=== PATIENT | female | born 2000 | race Caucasian/White ===

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

== ENCOUNTER 2020-01-09 14:14 | Outpatient (REF) | payer MEDICAID, SELFPAY ==
[2020-01-15 12:11] LABS: Chlamydia Result Negative (Negative); GC Result Negative (Negative)
== END 2020-01-09 14:34 ==
LOC: LBN 14:14
PROVIDERS: PCP Nurse Practitioner Family; Visit Provider Nurse Practitioner Women's Health
DX: Z11.3 Encounter for screening for infections with a predominantly sexual mode of transmission (principal)
CPT/HCPCS: 87491; 87591

== ENCOUNTER 2020-02-01 02:13 | Outpatient (CLI) | payer MEDICAID, SELFPAY ==
[2020-02-01 12:14] LABS: Abs Immature Grans 0.01 10^3/uL (0.0-0.06); Absolute Basophil Count 0.03 10^3/uL (0.0-0.2); Absolute Eosinophil Count 0.12 10^3/uL (0.0-0.7); Absolute Monocyte Count 0.46 10^3/uL (0.1-0.8); Absolute Neutrophil Count 3.06 10^3/uL (1.2-6.7); Basophils % 0.5; Eosinophils % 2.1; HGB 12.2 g/dL (11.2-15.7); Immature Grans % 0.2; Lymphocytes % 36.3; MCH 29.3 pg (27.0-33.0); MCHC 33.9 % (32.0-36.0); MCV 86.5 fL (80-95); MPV 11.3 fL (8.0-11.0); Neutrophils % 52.9; Nucleated RBC 0 %; Platelet Count 197 10^3/uL (130-400); RBC 4.16 10^6/uL (3.93-5.22); RDW 12.3 % (11.7-14.6); RDW-SD 38.8 fL; WBC 5.78 10^3/uL (4.4-10.8)
[2020-02-01 13:40] LABS: ALT 29 U/L (14-59); AST 15 U/L (15-37); Albumin 3.9 g/dL (3.4-5.0); Alkaline Phosphatase 67 U/L (46-116); Anion Gap 7.2 mmol/L (3-11); BUN 12 mg/dL (7-18); Bilirubin, Total 0.6 mg/dL (0.2-1.0); CO2 26.8 mmol/L (21.0-32.0); CREATININE 0.93 mg/dL (0.55-1.02); Calcium 9.2 mg/dL (8.5-10.1); Chloride 106 mmol/L (98-107); Glucose 94 mg/dL (74-106); Potassium 4.4 mmol/L (3.5-5.1); Sodium 140 mmol/L (136-145); TSH (W/Ref FT4) 1.26 uIU/mL (0.52-4.13); Total Protein 6.8 g/dL (6.4-8.2)
== END 2020-02-01 02:33 ==
PROVIDERS: PCP Nurse Practitioner Family; Visit Provider Family Medicine
DX: M54.2 Cervicalgia (principal)
CPT/HCPCS: 36415; 80053; 84443; 85025

== ENCOUNTER 2020-02-20 16:37 | Outpatient (CLI) | payer MEDICAID, SELFPAY ==
--- NOTE | 2020-02-20 | DI.RAD_ITS ---
EXAM: XR ABD FLAT UPRIGHT PA CHEST CLINICAL HISTORY: CONSTIPATION, K59.00, EVALUATION OF BOWEL OBSTRUCTION TECHNIQUE: COMPARISON: CR XR ABDOMEN FLAT PLATE from 12/07/2019 FINDINGS: PA chest was obtained. Cardiac size is within normal limits. Lungs are clear and well expanded. Three views of the abdomen were obtained. No free intraperitoneal air. Normal bowel gas pattern not ed. No organomegaly. IMPRESSION: Negative examination of the chest and abdomen. RADIATION DOSE DELIVERED: Total DLP
== END 2020-02-20 16:57 ==
PROVIDERS: PCP Nurse Practitioner Family; Visit Provider Nurse Practitioner Family
DX: K59.00 Constipation, unspecified (principal)
CPT/HCPCS: 74022

== ENCOUNTER 2020-07-23 15:35 | Outpatient (REF) | payer MEDICAID, SELFPAY | END 2020-07-23 15:36 | disposition home or self-care (01) | LOC: NCHCN 15:35 | PROVIDERS: PCP Nurse Practitioner Family; Visit Provider Nurse Practitioner Family | DX: R30.0 Dysuria (principal) | CPT/HCPCS: 87077; 87086; 87186 ==

== ENCOUNTER 2020-08-28 20:53 | Emergency (ER) | payer MEDICAID, SELFPAY ==
[2020-08-28 21:01] VITALS: BP 138/73; PULSE 92; RESP 16; TEMP 36.9; O2SAT 97
--- NOTE | 2020-08-28 21:36 | ED.GENADUL_ITS ---
Discharge Plan Disposition Patient Disposition: HOME Condition: Good Discharge Details Clinical Impression: Acute neck pain, Back pain, thoracic Primary Care Provider: Marixa Rosales ED Provider: Xiomara Rodriguez Home Meds and New Rx's Prescriptions: Continued Nexplanon 68 mg implant 1 implant SBD ONCE RF: 0 acetaminophen [Tylenol Extra Strength] 500 mg Tablet 500 mg PO PRN PRNRF: 0 bupropion HCl 150 mg tablet extended release 24 hr 150 mg PO DAILY RF: 0 Discharge Instructions Instructions: Back Pain (ED), Neck Pain (ED) Additional Instructions: Imaging is reassuring here today. There is findings suggestive of muscle spasm in your neck. Please encourage gentle stretching. Heat or ice to affected area. Avoid heavy lifting. You may continue with Tylenol and/or ibuprofen as needed for discomfort. May also try topical options such as lidocaine patches. If you develop any new or worsening symptoms please seek care urgently once again. Otherwise, please follow-up with your primary care in the next 1 to 2 weeks for reevaluation. Referrals: Marixa Rosales [Primary Care Provider] - Discharge Data Discharge Date/Time-TO BE ENTERED AT DEPARTURE: 08/29/20 00:15 Medical Decision Making Patient is a pleasant 20 year old female presenting today with c/c of cervical and thoracic spine pain. States that prior to arrival she was wrestling with a friend. States that she was kneeling on the bed when she excellently fell over backwards falling off of the bed and landing directly on her head with her neck in a forward flexed position on the floor. Denies any loss of consciousness. No nausea or vomiting. No focal the. No visual change. However, patient has continued to have neck and upper thoracic pain. States that this is worse with movement. Has not had any analgesics. Denies being . Denies other injury the time of the incident. On exam, patient appears nontoxic. She appears anxious and uncomfortable. Neuro exam is normal. She does have pain in the lower cervical and upper thoracic spine with rotation of the neck to the left. No midline tenderness of the cervical spine. No step-off deformity. Patient also has fairly diffuse upper thoracic pain but again, no focal discomfort, no step-off. No objective evidence of trauma. Patient has good extension of the spine, rotation but does have limited forward flexion. Patient denies discussed continued management. Based on fall, level of discomfort, plan to move forward with CT imaging to evaluate for potential fracture. Will give Tylenol, ibuprofen, Lidoderm patch to help with discomfort. Reevaluated patient after she returned from CT, she reports that her pain is much improved. Pending results from radiologist. FINDINGS: Bones/joints: No acute fracture. There are no subluxations. There is loss of the cervical lordosis with minimal smooth kyphosis centered at the lower cervical spine which may be related to muscle spasm or positioning. Discs/Spinal canal/Neural foramina: No significant disc protrusion. No severe spinal canal stenosis. No significant neural foraminal narrowing. Lungs: Lung apices are normal. Soft tissues: Unremarkable. IMPRESSION: 1. No acute fractures or subluxations. 2. Loss of the cervical lordosis may be related to muscle spasm or positioning. FINDINGS: Vertebrae: No acute fracture. Normal alignment. There is mild anterior wedging and loss of vertebral body height of multiple mid and lower thoracic vertebra which appears chronic. Discs/Spinal canal/Neural foramina: There is multilevel mild disc space narrowing and endplate degenerative spurring of the lower thoracic spine with scattered tiny degenerative Schmorl's nodes consistent with mild degenerative disc disease. No significant disc protrusion. No severe spinal canal stenosis. No significant neural foraminal narrowing. Soft tissues: There is a retroesophageal right subclavian artery, a normal variant. There is mild wedge-shaped soft tissue within the anterior mediastinum at and superior to the level of the aortic arch consistent with mild residual thymic tissue. There are punctate renal stones within the upper poles of the kidneys, 1 on the right and 3 on the left. IMPRESSION: 1. No acute fractures or subluxations. 2. Multiple chronic appearing mild compression deformities of mid and lower thoracic vertebra. 3. Mild multilevel degenerative changes. 4. Tiny bilateral renal stones. Discussed these findings with the patient. She states hx of previous trauma accounting for chronic compression deformities. She is feeling significantly improved. She and I discussed home remedies and OTC medications that may help with symptomatic maangement. Encouraged massage, ROM, stretching, heat, NSAIDS, topical options for pain management. She will f/u with PCP in the next 1-2 weeks for reevaluation. Return precautions discussed. All of her questions and concerns were addressed, she is in agreement with this plan. HPI General Mode of arrival: ambulatory . Date/Time Provider Initiated Documentation: 06/16/21 21:13 . Limitations to Documentation: no limitations . Information obtained by: patient and RN notes reviewed . History of Present Illness 20 year old F presents to the emergency department with the chief complaint of neck and back pain, described as severe, with intensity rated at 8. Quality is described as aching, and is localized to the neck and back. Patient reports no radiation. Patient started experiencing this minute(s) and it has been constant. Immobilization improves symptom(s), Movement worsens symptoms . Patient notes no other symptoms.. Patient did receive the following treatments prior to arrival, none Related Data Home Medications Medication Instructions Recorded Confirmed etonogestrel 68 mg subdermal 1 implant SBD ONCE 10/14/18 08/28/20 implant acetaminophen [Tylenol Extra 500 mg PO PRN PRN 11/16/18 08/28/20 Strength] bupropion HCl 150 mg PO DAILY 08/28/20 08/28/20 Allergies Allergy/AdvReac Type Severity Reaction Status Date / Time peanut Allergy Severe Anaphylaxis Unverified 08/28/20 21:08 General Stated Complaint: Nk/Back Pain STANTON: 3 Review of Systems Constitutional Constitutional: Reports as per HPI, Denies chills, Denies fatigue, Denies fe yevgeniy(s), Denies frequent falls and Denies headache(s) Eyes Eyes: Denies change in vision ENT Ears, Nose, Mouth, and Throat: Denies headache(s) Cardiovascular Cardiovascular: Denies chest pain, Denies dyspnea and Denies dyspnea on exertion Respiratory Respiratory: Denies cough, Denies dyspnea and Denies dyspnea on exertion Gastrointestinal Gastrointestinal: Denies abdominal pain, Denies change in bowel habits and Denies fecal incontinence Genitourinary Genitourinary: Reports as per HPI, Denies urinary incontinence and Denies urinary hesitancy Musculoskeletal Musculoskeletal: Reports as per HPI, Reports back pain, Denies muscle weakness, Denies numbness, Denies radiating pain into limb, Reports stiffness and Denies tingling Integumentary/Breasts Skin/Breast: Reports as per HPI and Denies rash Neurologic Neurologic: Reports as per HPI, Denies frequent falls, Denies headache(s), Denies localized weakness, Denies numbness, Denies radicular pain, Denies sensory deficit, Denies tingling and Denies paresthesias Endocrine Endocrine: Denies fatigue PFSH Medical History Kidney stones Presence of subdermal contraceptive implant Family History Mother No problems noted. Father No problems noted. Social History Smoking/Tobacco Use Status: Never Smoking risk assessment performed?: Yes Alcohol Intake: never Drug use: Never Substance use type: does not use and other current occupation: [employer] Duration: 60-90 minutes/day Seatbelt use: sometimes Do you feel safe at home: Yes Do you feel safe in your relationship?: Yes Female Reproductive History Menstrual Age of Menarche: 11 control method: implanted History History 0 Para Hx # Term Pregnancies Multiple births Hx # Pregnancies Ectopic pregnancies AB induced Hx Number of Living Children AB spontaneous Exam Const General: cooperative, healthy appearing, uncomfortable, no acute distress, well developed and well groomed Nutritional Appearance: well nourished and overweight Orientation: alert and awake Eyes General: appearance normal, both eyes and all related structures Neck Neck: normal visual inspection, full ROM and tender (with rotation to the left) Resp Effort & Inspection: normal respiratory effort and able to speak in complete sentences Auscultation: clear to auscultation bilaterally, no rales, no rhonchi and no wheezes Cardio Rate: regular rate Rhythm: regular rhythm Heart Sounds: S1 normal and S2 normal Back/Spine/Pelvis Back: no CVA tenderness Cervical Spine: normal cervical lordosis, cervical ROM normal, No cervical muscular tenderness, pain with cervical ROM (rotation to the lef), cervical spasm, No cervical spinal tenderness and No step off deformity Thoracic/Lumbar Spine: thoracic and lumbar spine normal to inspection, No thoraco-lumbar ROM normal (limited forward flexion), bend over test abnormal, pain with thoraco-lumbar ROM, paraspinal tenderness (diffuse upper thoracic spine), No thoraco-lumbar spasm, thoracic spinal tenderness (diffuse upper thoracic spine, no focal area of pain, no step off) and No lumbar spinal tenderness Pelvis: no pain with anterior-posterior compression and no pain with lateral compression Skin General skin exam: no rashes or lesions noted Neuro General: patient alert and patient awake Cognition: normal cognition Speech: speech normal Gait: normal gait Motor: muscle tone normal throughout, strength 5/5 throughout, no pronator drift, no movement abnormalities noted, no fasciculations and no fasciculations noted Sensory Exam: no sensory deficits noted (no saddle paresthesias) DTR's: Rt Patellar: 2+, Lt Patellar: 2+, Rt Ankle: 2+ and Lt Ankle: 2+ Coordination: [id number] test normal, [id number] test normal, Romberg test normal, tandem gait normal, Does not sway with eyes open and rapid alternating movement UE normal Extrem General: normal to inspection, full ROM, capillary refill normal, no joint enlargement, no pedal edema, no calf tenderness and normal gait Psych Appearance: grossly normal and well kempt Mental Status: mental status grossly normal Speech and Movement: speech and movement normal Course Vital Signs Vital signs: Vital Signs Temperature 36.9 C 08/28/20 21:01 Pulse 92 H 08/28/20 21:01 Respiratory Rate 16 08/28/20 21:01 Blood Pressure 138/73 08/28/20 21:01 Pulse Oximetry 97 08/28/20 21:01 Temperature 36.9 C 08/28/20 21:01 Temperature Source Skin 08/28/20 21:01 Pulse 92 H 08/28/20 21:01 Respiratory Rate 16 08/28/20 21:01 Respiratory Effort Non-Labored 08/28/20 21:07 Blood Pressure 138/73 08/28/20 21:01 Blood Pressure Position Sitting 08/28/20 21:01 Pulse Oximetry 97 08/28/20 21:01 Oxygen Delivery Method Room Air 08/28/20 21:01 Oxygen Flow Rate 0 08/28/20 21:01 Pain Level 8 08/28/20 21:09
--- NOTE | 2020-08-28 21:45 | DI.CT_ITS ---
Exam(s) CT THORACIC SPINE WO EXAM: CT THORACIC SPINE WO CLINICAL HISTORY: Fall, force flexion. TECHNIQUE: Imaging Protocol: Axial computed tomography images with coronal and sagittal reformatted images were created and reviewed. CONTRAST MATERIAL: Intravenous: None Oral: yes / no COMPARISON: No exams were available for comparison FINDINGS: OSSEOUS: There is no evidence of acute compression fracture in the thoracic spinal column. Multileve l endplate abnormalities are noted is which may indicate element of Scheuermann's abnormality but thi s is not acute. There is no listhesis. No facet malalignment. No obvious disc protrusions. No abnormal widening of the paraspinal tissues. No evidence of paraspinal hematoma. Incidentally noted are tiny nonobstructive calculi in left kidney IMPRESSION: No evidence of acute thoracic spine fracture, listhesis, facet malalignment, nor acute compromise of the thoracic spinal canal. Incidentally noted are nonobstructive calculi in left kidney in this 20-year-old patient. Appropriat e workup recommended RADIATION DOSE DELIVERED: 858.58mGy.cm Total DLP DATA REPOSITORY: All CT scans at this facility are submitted to the National Radiology Data Registry (NRDR) Dose Index Registry (DIR) with the [employer] ([employer]). RADIATION OPTIMIZATION: All CT scans at this facility use at least one of these dose optimization te chniques: automated exposure control; mA and/or kV adjustment per patient size (includes targeted exa ms where dose is matched to clinical indication); or iterative reconstruction.
--- NOTE | 2020-08-28 21:45 | DI.CT_ITS ---
Exam(s) CT CERVICAL SPINE WO EXAM: CT CERVICAL SPINE WO CLINICAL HISTORY: fall, force flexion. TECHNIQUE: Imaging Protocol: Axial computed tomography images with coronal and sagittal reformatted images were created and reviewed COMPARISON: No exams were available for comparison FINDINGS: CERVICAL SPINE: There is no evidence of fracture nor listhesis. No significant prevertebral soft tissue swelling. N o facet malalignment evident. No significant osseous lesions evident. Straightening of the cervical spine is noted which is probably related to muscle spasm. IMPRESSION: No evidence of cervical spine fracture, malalignment, nor acute compromise of the cervical spinal can al. RADIATION DOSE DELIVERED: 670.15mGy.cm Total DLP DATA REPOSITORY: All CT scans at this facility are submitted to the National Radiology Data Registry (NRDR) Dose Index Registry (DIR) with the [employer] ([employer]). RADIATION OPTIMIZATION: All CT scans at this facility use at least one of these dose optimization te chniques: automated exposure control; mA and/or kV adjustment per patient size (includes targeted exa ms where dose is matched to clinical indication); or iterative reconstruction.
[2020-08-28 22:40] VITALS: BP 119/73; PULSE 90; RESP 16; O2SAT 98
[2020-08-28] MEDS: Ibuprofen 600 MG TAB PO (22:40)
[2020-08-28] MEDS: Acetaminophen 500 MG TAB 1000 MG PO (22:40)
[2020-08-28 23:48] VITALS: BP 111/63; PULSE 68; RESP 16; O2SAT 98
--- NOTE | 2020-08-28 23:49 | DI.VRAD_ITS ---
PROCEDURE INFORMATION: Exam: CT Cervical Spine Without Contrast Exam date and time: 08/28/2020 9:49 PM Age: 20 years old Clinical indication: Other: Fall, force flexion TECHNIQUE: Imaging protocol: Computed tomography images of the cervical spine without contrast. Radiation optimization: All CT scans at this facility use at least one of these dose optimization techniques: automated exposure control; mA and/or kV adjustment per patient size (includes targeted exams where dose is matched to clinical indication); or iterative reconstruction. COMPARISON: No relevant prior studies available. FINDINGS: Bones/joints: No acute fracture. There are no subluxations. There is loss of the cervical lordosis with minimal smooth kyphosis centered at the lower cervical spine which may be related to muscle spasm or positioning. Discs/Spinal canal/Neural foramina: No significant disc protrusion. No severe spinal canal stenosis. No significant neural foraminal narrowing. Lungs: Lung apices are normal. Soft tissues: Unremarkable. IMPRESSION: 1. No acute fractures or subluxations. 2. Loss of the cervical lordosis may be related to muscle spasm or positioning. Dictated and Authenticated by: Paul Lundberg MD. Ordering:MIKI Solano MD
--- NOTE | 2020-08-29 | DI.VRAD_ITS ---
PROCEDURE INFORMATION: Exam: CT Thoracic Spine Without Contrast Exam date and time: 08/28/2020 9:49 PM Age: 20 years old Clinical indication: Other: Fall, force flexion TECHNIQUE: Imaging protocol: Computed tomography images of the thoracic spine without contrast. Radiation optimization: All CT scans at this facility use at least one of these dose optimization techniques: automated exposure control; mA and/or kV adjustment per patient size (includes targeted exams where dose is matched to clinical indication); or iterative reconstruction. COMPARISON: No relevant prior studies available. FINDINGS: Vertebrae: No acute fracture. Normal alignment. There is mild anterior wedging and loss of vertebral body height of multiple mid and lower thoracic vertebra which appears chronic. Discs/Spinal canal/Neural foramina: There is multilevel mild disc space narrowing and endplate degenerative spurring of the lower thoracic spine with scattered tiny degenerative Schmorl's nodes consistent with mild degenerative disc disease. No significant disc protrusion. No severe spinal canal stenosis. No significant neural foraminal narrowing. Soft tissues: There is a retroesophageal right subclavian artery, a normal variant. There is mild wedge-shaped soft tissue within the anterior mediastinum at and superior to the level of the aortic arch consistent with mild residual thymic tissue. There are punctate renal stones within the upper poles of the kidneys, 1 on the right and 3 on the left. IMPRESSION: 1. No acute fractures or subluxations. 2. Multiple chronic appearing mild compression deformities of mid and lower thoracic vertebra. 3. Mild multilevel degenerative changes. 4. Tiny bilateral renal stones. Dictated and Authenticated by: Paul Lundberg MD. Ordering:MIKI Solano MD
[2020-08-29] MEDS: Lidocaine 5% Patch 1 PATCH TP (00:14)
== END 2020-08-29 00:15 | disposition home or self-care (01) ==
PROVIDERS: Emergency Provider Physician Assistant; PCP Nurse Practitioner Family
DX: M54.2 Cervicalgia (principal); M54.6 Pain in thoracic spine
CPT/HCPCS: 81025; 99284; 72125; 72128; 99283

== ENCOUNTER 2020-09-17 16:47 | Outpatient (REF) | payer MEDICAID, SELFPAY ==
[2020-09-17 20:15] LABS: Abs Immature Grans 0.01 10^3/uL (0.0-0.06); Absolute Basophil Count 0.03 10^3/uL (0.0-0.2); Absolute Eosinophil Count 0.16 10^3/uL (0.0-0.7); Absolute Lymphocyte Count 1.86 10^3/uL (1.2-3.4); Absolute Monocyte Count 0.38 10^3/uL (0.1-0.8); Absolute Neutrophil Count 3.51 10^3/uL (1.2-6.7); Basophils % 0.5; Eosinophils % 2.7; HCT 37.2 % (36.0-46.0); HGB 12.6 g/dL (11.2-15.7); Immature Grans % 0.2; Lymphocytes % 31.3; MCH 29.4 pg (27.0-33.0); MCHC 33.9 % (32.0-36.0); MCV 86.7 fL (80-95); MPV 11.9 fL (8.0-11.0); Monocytes % 6.4; Neutrophils % 58.9; Nucleated RBC 0 %; Platelet Count 236 10^3/uL (130-400); RBC 4.29 10^6/uL (3.93-5.22); RDW 12.4 % (11.7-14.6); RDW-SD 39.4 fL; WBC 5.95 10^3/uL (4.4-10.8)
[2020-09-17 20:58] LABS: ALT 34 U/L (14-59); AST 17 U/L (15-37); Alkaline Phosphatase 82 U/L (46-116); BUN 7 mg/dL (7-18); Bilirubin, Total 0.4 mg/dL (0.2-1.0); Calcium 9.7 mg/dL (8.5-10.1); Chloride 107 mmol/L (98-107); Glucose 100 mg/dL (74-106); Potassium 4.4 mmol/L (3.5-5.1); Sodium 143 mmol/L (136-145); Total Protein 7.2 g/dL (6.4-8.2)
== END 2020-09-17 16:48 | disposition home or self-care (01) ==
LOC: NCHCN 16:47
PROVIDERS: PCP Nurse Practitioner Family; Visit Provider Nurse Practitioner Family
DX: R53.83 Other fatigue (principal); R19.7 Diarrhea, unspecified
CPT/HCPCS: 80053; 85025

== ENCOUNTER 2021-02-24 15:53 | Emergency (ER) | payer MEDICAID, SELFPAY ==
[2021-02-24 16:30] VITALS: BP 135/85; PULSE 83; RESP 17; TEMP 36.8; O2SAT 97
--- NOTE | 2021-02-24 16:44 | ED.GENADUL_ITS ---
Discharge Plan Disposition Patient Disposition: HOME Condition: Stable Discharge Details Clinical Impression: Kidney stones, Gastroenteritis Primary Care Provider: Marixa Rosales ED Provider: Sherrill Painter Home Meds and New Rx's Prescriptions: New ondansetron 4 mg tablet,disintegrating 4 mg PO Q8H PRN (Reason: nausea and vomiting) 5 Days Qty: 15 RF: 0 dicyclomine 20 mg tablet 20 mg PO TID PRN (Reason: stomach upset) Qty: 14 RF: 0 Continued Nexplanon 68 mg implant 1 implant SBD ONCE RF: 0 acetaminophen [Tylenol Extra Strength] 500 mg Tablet 500 mg PO PRN PRNRF: 0 bupropion HCl 150 mg tablet extended release 24 hr 150 mg PO DAILY RF: 0 prazosin 1 mg capsule 2 mg PO HS RF: 0 magnesium oxide 500 mg tablet 500 mg PO DAILY RF: 0 sertraline 50 mg tablet 50 mg PO DAILY RF: 0 vitamin B complex [Vitamins B Complex] Capsule 1 cap PO HS RF: 0 Discharge Instructions Instructions: Kidney Stones (ED), Gastroenteritis (ED) Additional Instructions: CT shows some very small nonobstructing multiple kidney stones in the left and right kidney. There is also some question inflammation of the intestinal wall which can be indicative gastroenteritis. Please take the nausea and pain medication as directed. Please obtain a stool sample and bring it in at your convenience for some stool studies to be done through your primary care provider. Follow up with primary care provider in 3-5 days. Return to ED sooner if any worsening or concerns. Increase oral fluids. Please take Tylenol or Ibuprofen with food every 4-6 hours as needed for pain and swelling. Referrals: Marixa Rosales [Primary Care Provider] - 5 days Medical Decision Making 20-year-old female presents to the ER chief complaint of bilateral CVA tenderness, right upper quadrant abdominal pain which began yesterday. Patient reports nausea no vomiting no diarrhea. She also endorses a fever of 100.1 yesterday. She has been taking Tylenol for the pain last taken yesterday. She does have a history of kidney stones. No history of abdominal surgeries. She denies any dysuria, vaginal discharge or any other associated symptoms. CBC, CMP, lipase, urinalysis urine IV normal saline [address] abdomen pelvis will be ordered. Differential diagnosis includes but not to pyelonephritis, kidney stone, cholecystitis. CBC shows no leukocytosis, CMP largely within normal limits, urinalysis shows trace blood no leukocytes no nitrite. Culture is not indicated at this time CT abdomen pelvis with contrast: IMPRESSION: 1. Numerous small bilateral nonobstructive renal stones measuring 1-3 mm in size. No ureteral stones or hydronephrosis. 2. Questionable changes of mild gastroenteritis and mild mesenteric adenitis. No evidence of bowel obstruction, perforation, or abscess. 3. Borderline splenomegaly Patient given Zofran and dicyclomine instructed to follow-up with PCP and instructed on strict return instructions. Patient discharged in hemodynamically stable condition. This text was generated using [employer] system, please disregard any oddities of phrase or misspellings. Outpatient stool studies ordered to rule out Giardia and ova and parasite. air liaison and special staff informed me that patient went to [facility] in September of this year and ever since has had abnormal bowel movements. HPI General Mode of arrival: ambulatory . Date/Time Provider Initiated Documentation: 02/24/21 16:43 . Limitations to Documentation: no limitations . Information obtained by: patient, RN notes reviewed and old records reviewed . HPI Narrative: 20-year-old female presents to the ER chief complaint of bilateral CVA tenderness, right upper quadrant abdominal pain which began yesterday. Patient reports nausea no vomiting no diarrhea. She also endorses a fever of 100.1 yesterday. She has been taking Tylenol for the pain last taken yesterday. She does have a history of kidney stones. No history of abdominal surgeries. She denies any dysuria, vaginal discharge or any other associated symptoms. Related Data Home Medications Medication Instructions Recorded Confirmed etonogestrel 68 mg subdermal 1 implant SBD ONCE 10/14/18 02/24/21 implant acetaminophen [Tylenol Extra 500 mg PO PRN PRN 11/16/18 02/24/21 Strength] bupropion HCl 150 mg PO DAILY 08/28/20 02/24/21 dicyclomine 20 mg PO TID PRN #14 tab 02/24/21 magnesium oxide 500 mg PO DAILY 02/24/21 02/24/21 ondansetron 4 mg PO Q8H PRN 5 Days #15 tab 02/24/21 prazosin 2 mg PO HS 02/24/21 02/24/21 sertraline 50 mg PO DAILY 02/24/21 02/24/21 vitamin B complex [Vitamins B 1 cap PO HS 02/24/21 02/24/21 Complex] Previous Rx's Medication Instructions Recorded dicyclomine 20 mg PO TID PRN #14 tab 02/24/21 ondansetron 4 mg PO Q8H PRN 5 Days #15 tab 02/24/21 Allergies Allergy/AdvReac Type Severity Reaction Status Date / Time peanut Allergy Severe Anaphylaxis Unverified 02/24/21 16:37 General Stated Complaint: Abd Prob STANTON: 3 Review of Systems All systems reviewed & are unremarkable except as noted in HPI and below Gastrointestinal Gastrointestinal: Reports abdominal pain Genitourinary Genitourinary: Reports flank pain PFSH All Active Problems (Updated 02/24/21 @ 18:32 by Sherrill Painter) Acute neck pain (Acute) Back pain, thoracic (Acute) Gastroenteritis (Acute) Presence of subdermal contraceptive implant (Acute) Kidney stones (Chronic) Family History Mother No problems noted. Father No problems noted. Social History Smoking/Tobacco Use Status: Never Smoking risk assessment performed?: Yes Alcohol Intake: never Drug use: Never Substance use type: does not use and other current occupation: [employer] Duration: 60-90 minutes/day Seatbelt use: sometimes Do you feel safe at home: Yes Do you feel safe in your relationship?: Yes Female Reproductive History Menstrual Age of Menarche: 11 control method: implanted History History 0 Para Hx # Term Pregnancies Multiple births Hx # Pregnancies Ectopic pregnancies AB induced Hx Number of Living Children AB spontaneous Exam Narrative Exam Narrative: Constitutional: Alert and oriented x3. Appears stated age. Normal body habitus. Head: Normocephalic, no trauma. Eyes: Pupils PERRL, Red reflex noted, EOM's intact. Eyelids symmetrical without lesions, discharge, or swelling. ENT: Bilateral TM's WNL, External ear normal to inspection, no mastoid TTP, swelling, or erythema, Nasal turbinates WNL, no nasal discharge. Normal dentition, Posterior pharynx WNL, no exudate. Chest: RRR, Normal S1, S2, distal pulses intact. Resp: Lungs clear to auscultation bilaterally, no wheezes, rales, or rhonchi. Abdomen: Soft, non-distended, Normoactive bowel sounds all 4 quads. Right upper quadrant tenderness with palpation. : Bilateral CVA tenderness. Musculoskeletal: Normal gait, 5/5 strength to all four extremities. Skin: No suspicious rashes or lesions. Capillary refill less than 2 sec. Neurologic: Cranial nerves II-XII intact. Alert and oriented x 3. Motor: No deficits noted. Sensory: Intact bilaterally all 4 extremities. Reflexes: DTR's intact bilaterally.. Hematologic/Lymphatic: No ecchymosis, no lymphadenopathy. Course Vital Signs Vital signs: Vital Signs Temperature 36.8 C 02/24/21 16:30 Pulse 83 02/24/21 16:30 Respiratory Rate 17 02/24/21 16:30 Blood Pressure 135/85 02/24/21 16:30 Pulse Oximetry 97 02/24/21 16:30 Temperature 36.8 C 02/24/21 16:30 Temperature Source Oral 02/24/21 16:30 Pulse 83 02/24/21 16:30 Respiratory Rate 17 02/24/21 16:30 Respiratory Effort Non-Labored 02/24/21 16:33 Blood Pressure 135/85 02/24/21 16:30 Blood Pressure Position Sitting 02/24/21 16:30 Pulse Oximetry 97 02/24/21 16:30 Oxygen Delivery Method Room Air 02/24/21 16:30 Oxygen Flow Rate 0 02/24/21 16:30 Pain Level 7 02/24/21 16:33
--- NOTE | 2021-02-24 16:45 | DI.CT_ITS ---
Exam(s) CT ABDOMEN PELVIS W EXAM: CT ABDOMEN PELVIS W CLINICAL HISTORY: Bilateral CVA tenderness, RUQ abd pain, TECHNIQUE: Imaging Protocol: Axial computed tomography images with coronal and sagittal reformatted images were created and reviewed CONTRAST MATERIAL: Intravenous: Omnipaque 350 Contrast volume:100 mL Oral: No COMPARISON: CT RENAL COLIC WO CONTRAST from 09/25/2017 FINDINGS: ABDOMEN: Lung Bases: Normal where visualized. Liver: Normal density. No measurable mass. Portal, Superior Mesenteric, and Splenic Veins: Unremarkable. Gallbladder and Biliary Tract: No radiodense calculus or dilation. Pancreas: Normal density, no abnormal calcifications or inflammatory process. Spleen: Normal in size at 12 cm. Adrenals: No masses seen. Kidneys: Normal size, contour and axis. There is bilateral nephrolithiasis. No obstructive uropathy. No masses seen. Abdominal Aorta: Abdominal portion non-dilated. Bowel: No obstruction or bowel wall thickening. Appendix is unremarkable. Peritoneal Cavity: No ascites, collection or mesenteric inflammatory response. No free air. Lymph Nodes: Borderline upper limits of normal lymph nodes in the mesentery which may represent mesen teric adenitis. Bones: Within normal limits for the patient's age. L3 spondylolysis. No spondylolisthesis. There i s a transitional L5 vertebral body which is partially sacralized. Soft Tissues: Unremarkable. PELVIS: Bladder: Symmetric distention, no gross wall thickening. Reproductive Organs: Unremarkable as visualized. Lymph Nodes: Within normal limits. Bones: Within normal limits for the patient's age. IMPRESSION: 1. Borderline prominent mesenteric lymph nodes which may represent mesenteric adenitis. 2. Bilateral nephrolithiasis but no evidence of hydronephrosis. RADIATION DOSE DELIVERED: 1,146.87mGy.cm Total DLP DATA REPOSITORY: All CT scans at this facility are submitted to the National Radiology Data Registry (NRDR) Dose Index Registry (DIR) with the [employer] (ACR). RADIATION OPTIMIZATION: All CT scans at this facility use at least one of these dose optimization te chniques: automated exposure control; mA and/or kV adjustment per patient size (includes targeted exa ms where dose is matched to clinical indication); or iterative reconstruction.
[2021-02-24 16:58] LABS: Bilirubin Negative (Negative); Blood Trace-intact (Negative); Clarity Clear (Clear); Glucose Negative (Negative); Ketones Negative (Negative); Leukocyte Esterase Negative (Negative); Nitrite Negative (Negative); Specific Gravity >= 1.030 (1.005-1.025); Urobilinogen 0.2 EU/dL (Up TO 0.2)
[2021-02-24 17:10] LABS: Abs Immature Grans 0.01 10^3/uL (0.0-0.06); Absolute Basophil Count 0.03 10^3/uL (0.0-0.2); Absolute Eosinophil Count 0.16 10^3/uL (0.0-0.7); Absolute Lymphocyte Count 2.35 10^3/uL (1.2-3.4); Absolute Monocyte Count 0.32 10^3/uL (0.1-0.8); Absolute Neutrophil Count 4.11 10^3/uL (1.2-6.7); Basophils % 0.4; Eosinophils % 2.3; HCT 34.9 % (36.0-46.0); HGB 11.6 g/dL (11.2-15.7); Immature Grans % 0.1; Lymphocytes % 33.7; MCH 29.4 pg (27.0-33.0); MCHC 33.2 % (32.0-36.0); MCV 88.4 fL (80-95); MPV 11.1 fL (8.0-11.0); Monocytes % 4.6; Neutrophils % 58.9; Nucleated RBC 0 %; Platelet Count 224 10^3/uL (130-400); RBC 3.95 10^6/uL (3.93-5.22); RDW-SD 39.2 fL; WBC 6.98 10^3/uL (4.4-10.8)
[2021-02-24 17:12] LABS: RBC 0-2 HPF (0-2); WBC 0-2 HPF (0-5)
[2021-02-24 17:13] LABS: Bacteria Moderate HPF (Negative); C & S Indicated? No; Crystals Negative HPF (Negative); Epithelial Cells Many HPF (Negative); Mucus Negative (Negative)
[2021-02-24] MEDS: Normal Saline 1,000 ML 1000 ML IV (17:15)
[2021-02-24] MEDS: Ketorolac 15 MG/ML VIAL IVP (17:15)
[2021-02-24 17:27] LABS: ALT 20 U/L (14-59); AST 9 U/L (15-37); Albumin 3.8 g/dL (3.4-5.0); Alkaline Phosphatase 90 U/L (46-116); Anion Gap 6.6 mmol/L (3-11); BUN 13 mg/dL (7-18); Bilirubin, Total 0.2 mg/dL (0.2-1.0); CO2 27.4 mmol/L (21.0-32.0); CREATININE 0.9 mg/dL (0.55-1.02); Chloride 105 mmol/L (98-107); Glucose 101 mg/dL (74-106); Lipase 64 U/L (73-393); Magnesium 2.1 mg/dL (1.8-2.4); Potassium 3.8 mmol/L (3.5-5.1); Sodium 139 mmol/L (136-145); Total Protein 7.2 g/dL (6.4-8.2)
[2021-02-24] MEDS: Omnipaque 350 MG/ML 100 ML BTL IJ (17:41)
--- NOTE | 2021-02-24 18:26 | DI.VRAD_ITS ---
Addendum created by Paul Escamilla MD on 02/24/2021 6:30:25 PM EST: Addendum: Additional osseous findings were also noted including: Transitional lumbosacral segment designated a partially sacralized L5 segment for purposes of this exam. Bilateral chronic L3 spondylolysis with the right-sided spondylolysis defect having a somewhat atypical distribution, extending transversely through the posterior pedicle and proximal transverse process. No evidence of superimposed acute fracture. No associated listhesis. Initial report created on 02/24/2021 6:25:43 PM EST: PROCEDURE INFORMATION: Exam: CT Abdomen And Pelvis With Contrast Exam date and time: 02/24/2021 5:00 PM Age: 20 years old Clinical indication: Other: Bilateral CVA tenderness, ruq abd pain, TECHNIQUE: Imaging protocol: Computed tomography of the abdomen and pelvis with contrast. Total images: 1153 Contrast material: OMNIPAQUE 350; Contrast volume: 100 ml; Contrast route: INTRAVENOUS (IV); COMPARISON: CR XR ABD FLAT UPRIGHT PA CHEST 02/20/2020 2:58 PM FINDINGS: Lungs: Visualized lung bases are clear. Heart: Heart size normal. Mediastinal space: The visualized distal esophagus is largely contracted without gross abnormality. Liver: Normal contour. No mass lesions. No intrahepatic biliary ductal dilatation. Gallbladder and bile ducts: Normal. No calcified stones. No ductal dilation. Pancreas: Normal. No inflammatory changes or ductal dilation. Spleen: Borderline splenomegaly measuring 13.2 cm maximum dimension. No focal splenic lesions. Adrenal glands: Normal. No adrenal mass. Kidneys and ureters: No acute abnormalities. No hydronephrosis or hydroureter. There are 7 small nonobstructive left renal stones measuring 1-3 mm in size. There are 3 nonobstructive right renal stones measuring 1-3 mm in size. No ureteral stones. Stomach and bowel: The stomach is unremarkable. Question mildly excessive fluid content in the mid and distal small bowel segments. This is suspicious for mild gastroenteritis. No skylar bowel dilatation or transition point. No evidence of bowel obstruction, perforation, or abscess. No acute colonic abnormalities. Appendix: The appendix is normal in caliber and demonstrates no evidence of appendicitis. Intraperitoneal space: No free fluid or air. Vasculature: No acute process. No abdominal aortic aneurysm. Lymph nodes: Question mild central mesenteric stranding/haziness at the mesenteric root with a few borderline enlarged nonspecific mesenteric lymph nodes present. This can be seen in mild mesenteric adenitis, sclerosing mesenteritis, mesenteric edema. Urinary bladder: Unremarkable as visualized. Reproductive: Unremarkable as visualized. Bones/joints: No acute osseous abnormalities. Soft tissues: Unremarkable. IMPRESSION: 1. Numerous small bilateral nonobstructive renal stones measuring 1-3 mm in size. No ureteral stones or hydronephrosis. 2. Questionable changes of mild gastroenteritis and mild mesenteric adenitis. No evidence of bowel obstruction, perforation, or abscess. 3. Borderline splenomegaly. Dictated and Authenticated by: Paul Escamilla MD. Ordering:POLO Mccartney MD
[2021-02-24 18:57] VITALS: BP 137/79; PULSE 73; RESP 22; TEMP 36.5; O2SAT 98
== END 2021-02-24 18:57 | disposition home or self-care (01) ==
PROVIDERS: Emergency Provider Registered Nurse Emergency; PCP Nurse Practitioner Family
DX: N20.0 Calculus of kidney (principal); Z87.442 Personal history of urinary calculi; R10.11 Right upper quadrant pain; K52.9 Noninfective gastroenteritis and colitis, unspecified
CPT/HCPCS: 36415; 80053; 81025; 83690; 96374; 99285; 74177; 81003; 81015; 83735; 85025; 99284; J1885; J3490

== ENCOUNTER 2021-04-07 09:24 | Inpatient (IN) | payer MEDICAID, SELFPAY ==
[2021-04-07] VITALS (7 sets, daily range): BP systolic 104–117; BP diastolic 56–70; PULSE 93–105; RESP 18–24; TEMP 36.5–40.1; O2SAT 95–99
[2021-04-07 10:04] LABS: Bilirubin Small (Negative); Blood Small (Negative); Clarity Cloudy (Clear); Glucose Negative (Negative); Ketones 40 mg/dL (Negative); Leukocyte Esterase Small (Negative); Nitrite Negative (Negative)
[2021-04-07 10:11] LABS: Bacteria Many HPF (Negative); C & S Indicated? Yes; Casts Negative LPF (Negative); Crystals Negative HPF (Negative); Epithelial Cells Few HPF (Negative); Mucus Moderate (Negative); WBC 20-50 HPF (0-5)
[2021-04-07 10:51] LABS: Abs Immature Grans 0.06 10^3/uL (0.0-0.06); Absolute Basophil Count 0.03 10^3/uL (0.0-0.2); Absolute Monocyte Count 1.06 10^3/uL (0.1-0.8); Absolute Neutrophil Count 12.78 10^3/uL (1.2-6.7); Basophils % 0.2; HCT 34.8 % (36.0-46.0); HGB 11.6 g/dL (11.2-15.7); Immature Grans % 0.4; Lactate 1.2 mmol/L (0.6-1.4); Lymphocytes % 4.1; MCH 28.8 pg (27.0-33.0); MCHC 33.3 % (32.0-36.0); MCV 86.4 fL (80-95); Monocytes % 7.3; Nucleated RBC 0 %; Platelet Count 183 10^3/uL (130-400); RBC 4.03 10^6/uL (3.93-5.22); RDW 12.1 % (11.7-14.6); RDW-SD 38.3 fL; WBC 14.52 10^3/uL (4.4-10.8)
[2021-04-07] MEDS: Ondansetron 4 MG/2 ML VIAL IVP ×2 (11:02→15:42)
[2021-04-07] MEDS: Normal Saline 500 ML 1000 ML IV (11:02)
[2021-04-07] MEDS: cefTRIAXone 2 GM/50 ML BAG IVPB (11:02)
[2021-04-07 11:09] LABS: ALT 37 U/L (14-59); AST 22 U/L (15-37); Albumin 3.2 g/dL (3.4-5.0); Alkaline Phosphatase 131 U/L (46-116); Anion Gap 11.5 mmol/L (3-11); BUN 17 mg/dL (7-18); Bilirubin, Total 0.8 mg/dL (0.2-1.0); CO2 24.5 mmol/L (21.0-32.0); CREATININE 1.3 mg/dL (0.55-1.02); Chloride 94 mmol/L (98-107); Estimated GFR 52.22 (mL/min/1.73m2); Glucose 109 mg/dL (74-106); Lipase 23 U/L (73-393); Potassium 3.8 mmol/L (3.5-5.1); Sodium 130 mmol/L (136-145); Total Protein 8.3 g/dL (6.4-8.2)
[2021-04-07] MEDS: Omnipaque 350 MG/ML 100 ML BTL IJ (11:32)
--- NOTE | 2021-04-07 11:45 | DI.CT_ITS ---
Exam(s) CT ABDOMEN PELVIS W EXAM: CT ABDOMEN PELVIS W CLINICAL HISTORY: abdominal and flank pain, fever, hx of stones. TECHNIQUE: Imaging Protocol: Axial computed tomography images with coronal and sagittal reformatted images were created and reviewed CONTRAST MATERIAL: Intravenous: Omnipaque 100cc Oral: None COMPARISON: CT CT ABDOMEN PELVIS W from 02/24/2021 FINDINGS: VISUALIZED LUNG BASES: Mild increased markings in the posterior basal segment right lower lobe and sa me location left lower lobe. No associated pleural effusions. ABDOMEN: LIVER: Mild hepatic steatosis. No discrete focal hepatic lesions nor dilatation of intrahepatic duct s. GALLBLADDER/BILIARY: No obvious gallbladder pathology. CBD is not dilated. PANCREAS: No evidence of pancreatic mass nor dilatation of the pancreatic duct. SPLEEN: Size is upper normal-minimally prominent. No intrasplenic lesions. Splenic and portal veins are patent. ADRENALS: There are no significant adrenal masses. KIDNEYS:Small solitary nonobstructive calculus in the left kidney is again noted, unchanged. No othe r left kidney findings. However, there has been significant change in the appearance of the right ki dney. Small calculus again noted in the right kidney, unchanged position measuring 2 millimeters. H owever, the entire right kidney now enhances inhomogeneously and exhibits perinephric streaking, cons istent with pyelonephritis. There is no caliectasis of the right kidney. Right ureter is not dilate d. No evidence of ureteral calculi nor calculi in the ureterovesical junction or in the urinary blad logan (which is not distended). There is no gas in the urinary bladder. ABDOMINAL AORTA: Abdominal aorta is not enlarged. LYMPH NODES:There is no retroperitoneal nor paraaortic adenopathy. ABDOMINAL WALL: No evidence of significant anterior abdominal wall nor inguinal hernia. GI: There is no evidence of bowel obstruction, free air, nor abscess. Small amount of free fluid in the dependent aspect of the pelvis noted PELVIS: GI: No evidence of appendicitis.No evidence of sigmoid diverticulitis. LYMPH NODES: There is no intrapelvic nor inguinal adenopathy. REPRODUCTIVE: Uterus and adnexal regions appear unremarkable. URINARY BLADDER: No calculi nor obvious masses evident OSSEOUS: No osseous lesions. No fractures. IMPRESSION: 1. Main finding is swelling and abnormal enhancement of the right kidney consistent with pyelonephri tis and there is also abundant perinephric streaking now evident around the right kidney. Previously described solitary small calculus in the right kidney is again noted within the kidney. Do not see radiopaque calculus long course of nondilated ureter nor within the urinary bladder. 2. The opposite-left kidney does not exhibit similar findings. It again contains a single small 2 mi llimeter nonobstructive calculus. RADIATION DOSE DELIVERED: 1,401.4mGy.cm Total DLP DATA REPOSITORY: All CT scans at this facility are submitted to the National Radiology Data Registry (NRDR) Dose Index Registry (DIR) with the [employer] (ACR). RADIATION OPTIMIZATION: All CT scans at this facility use at least one of these dose optimization te chniques: automated exposure control; mA and/or kV adjustment per patient size (includes targeted exa ms where dose is matched to clinical indication); or iterative reconstruction.
[2021-04-07] MEDS: ACETAMINOPHEN 1,000 MG/100 ML BTL 400 MG IVPB (11:49)
[2021-04-07] MEDS: Normal Saline 1,000 ML 1000 ML IV (11:51)
--- NOTE | 2021-04-07 12:28 | ED.GENADUL_ITS ---
Discharge Plan Disposition Patient Disposition: [facility] INPATIENT Condition: Serious Discharge Details Chief Complaint: Fever Clinical Impression: UTI (urinary tract infection), Pyelonephritis Admit Date/Time: 04/07/21 12:36 Admit Provider: Lea Verma Attending Provider: Lea Verma Primary Care Provider: Marixa Rosales ED Provider: Lu Florez Discharge Data Discharge Date/Time-TO BE ENTERED AT DEPARTURE: 04/07/21 13:36 Medical Decision Making Patient appears ill, she has acute pyelonephritis in the pressure, she was given fluid bolus, antiemetics, IV ceftriaxone 2 g, and she will need to be admitted secondary to nausea, vomiting, dehydration, pyelonephritis with sepsis She agreeable to admission at this time I do not have a prior urine culture to compare this to CT scan per radiology interpretation shows acute pyelonephritis, no obstructive uropathy Medical Records Medical records reviewed: Yes I reviewed the patient's medical records. Lab Data Lab results reviewed: Yes I reviewed the patient's lab results. HPI General Mode of arrival: ambulatory . Date/Time Provider Initiated Documentation: 04/07/21 09:29 . Limitations to Documentation: no limitations . Information obtained by: patient . HPI Narrative: This 20-year-old female presents with fever, temp of 104 bilateral flank pain, nausea, vomiting, denies diarrhea. Denies any chance of . Denies any blood in vomitus. Denies any chest pain or shortness of breath. Describes the pain as cramping. Able to urinate with discomfort. Related Data Home Medications Medication Instructions Recorded Confirmed etonogestrel 68 mg subdermal 1 implant SBD ONCE 10/14/18 04/07/21 implant acetaminophen [Tylenol Extra 500 mg PO PRN PRN 11/16/18 04/07/21 Strength] bupropion HCl 150 mg PO DAILY 08/28/20 04/07/21 magnesium oxide 500 mg PO DAILY 02/24/21 04/07/21 prazosin 2 mg PO HS 02/24/21 04/07/21 sertraline 50 mg PO DAILY 02/24/21 04/07/21 vitamin B complex [Vitamins B 1 cap PO HS 02/24/21 04/07/21 Complex] cyclobenzaprine 5 mg tablet 5 mg PO QHS PRN 03/10/21 04/07/21 ibuprofen [Advil] 400 mg PO Q6H PRN 04/07/21 04/07/21 Allergies Allergy/AdvReac Type Severity Reaction Status Date / Time peanut Allergy Severe Anaphylaxis Unverified 04/07/21 09:49 General Stated Complaint: Fever [place]: 3 Review of Systems All systems reviewed & are unremarkable except as noted in HPI and below PFSH All Active Problems (Updated 04/08/21 @ 16:54 by ANDIE Cordero) Pyelonephritis (Acute) Fever (Acute) UTI (urinary tract infection) (Acute) Acute neck pain (Acute) Back pain, thoracic (Acute) Gastroenteritis (Acute) Presence of subdermal contraceptive implant (Acute) Kidney stones (Chronic) Medical History Anemia Dizziness Fatigue Hand pain Low back pain Migraine headache with aura Near syncope Obesity TMJ dysfunction Family History Mother No problems noted. Father No problems noted. Social History Smoking/Tobacco Use Status: Never Smoking risk assessment performed?: Yes Alcohol Intake: never Drug use: Never Substance use type: does not use and other current occupation: [employer] Duration: 60-90 minutes/day Seatbelt use: sometimes Do you feel safe at home: Yes Do you feel safe in your relationship?: Yes Female Reproductive History Menstrual Age of Menarche: 11 control method: implanted History History 0 Para Hx # Term Pregnancies Multiple births Hx # Pregnancies Ectopic pregnancies AB induced Hx Number of Living Children AB spontaneous Exam Const General: cooperative and ill appearing Nutritional Appearance: well nourished Orientation: alert and oriented x3 HENMT Mouth: oral mucosae normal Eyes Sclera: sclerae normal Resp Effort & Inspection: normal respiratory effort Auscultation: clear to auscultation bilaterally Cardio Rate: regular rate Rhythm: regular rhythm GI Other: Right CVA tenderness, no right lower quadrant tenderness, otherwise negative abdominal exam Skin General skin exam: no rashes or lesions noted Neuro General: patient alert and patient oriented x3 Course Vital Signs Vital signs: Vital Signs Temperature 37.4 C 04/07/21 09:34 Pulse 93 H 04/07/21 09:34 Respiratory Rate 20 04/07/21 09:34 Blood Pressure 104/66 04/07/21 09:34 Pulse Oximetry 99 04/07/21 09:34 Temperature 37.4 C 04/07/21 09:34 Temperature Source Oral 04/07/21 09:34 Pulse 93 H 04/07/21 09:34 Respiratory Rate 20 04/07/21 09:34 Respiratory Effort Non-Labored 04/07/21 09:41 Blood Pressure 104/66 04/07/21 09:34 Blood Pressure Position Sitting 04/07/21 09:34 Pulse Oximetry 99 04/07/21 09:34 Oxygen Delivery Method Room Air 04/07/21 09:34 Oxygen Flow Rate 0 04/07/21 09:34 Pain Level 8 04/07/21 09:34 Lab/Test Results Lab/Test Results: 04/07/21 10:40 Blood Blood Culture - Pending 04/07/21 10:23 Blood Blood Culture - Pending 04/07/21 09:58 Urine - Reflex from Ua Urine Culture - Pending Laboratory Tests Range/Units 04/07/21 04/07/21 04/07/21 09:58 10:40 10:40 WBC (4.4-10.8) 10^3/uL 14.52 H RBC (3.93-5.22) 10^6/uL 4.03 Hgb (11.2-15.7) g/dL 11.6 Hct (36.0-46.0) % 34.8 L MCV (80-95) fL 86.4 MCH (27.0-33.0) pg 28.8 MCHC (32.0-36.0) % 33.3 RDW (11.7-14.6) % 12.1 Plt Count (130-400) 10^3/uL 183 MPV (8.0-11.0) fL 12.0 H Immature Gran % 0.4 Neutrophils % 88.0 Lymphocytes % 4.1 Monocytes % 7.3 Eosinophils % 0.0 Basophils % 0.2 Nucleated RBC % % 0 Absolute Neutrophils (1.2-6.7) 10^3/uL 12.78 H Absolute Lymphocytes (1.2-3.4) 10^3/uL 0.60 L Absolute Monocytes (0.1-0.8) 10^3/uL 1.06 H Absolute Eosinophils (0.0-0.7) 10^3/uL 0.00 Absolute Basophils (0.0-0.2) 10^3/uL 0.03 VBG Lactate (0.6-1.4) mmol/L Sodium (136-145) mmol/L 130 L Potassium (3.5-5.1) mmol/L 3.8 Chloride (98-107) mmol/L 94 L Carbon Dioxide (21.0-32.0) mmol/L 24.5 Anion Gap (3-11) mmol/L 11.5 H BUN (7-18) mg/dL 17 Creatinine (0.55-1.02) mg/dL 1.3 H Estimated GFR/1.73 m2 (mL/min/1.73m2) 52.22 Glucose (74-106) mg/dL 109 H Calcium (8.5-10.1) mg/dL 10.0 Total Bilirubin (0.2-1.0) mg/dL 0.8 AST (15-37) U/L 22 ALT (14-59) U/L 37 Alkaline Phosphatase (46-116) U/L 131 H Total Protein (6.4-8.2) g/dL 8.3 H Albumin (3.4-5.0) g/dL 3.2 L Lipase (73-393) U/L 23 Urine Color (Yellow) Yellow Urine Clarity (Clear) Cloudy Urine pH (5-8) 6.0 Ur Specific [place] (1.005-1.025) 1.020 Urine Protein (Negative) mg/dL 100 H Urine Ketones (Negative) mg/dL 40 H Urine Blood (Negative) Small H Urine Nitrite (Negative) Negative Urine Bilirubin (Negative) Small H Urine Urobilinogen (Up TO 0.2) EU/dL 2.0 H Ur Leukocyte Esterase (Negative) Small H Urine RBC (0-2) HPF 3-5 H Urine WBC (0-5) HPF 20-50 H Ur Epithelial Cells (Negative) HPF Few Urine Crystals (Negative) HPF Negative Urine Bacteria (Negative) HPF Many Urine Casts (Negative) LPF Negative Urine Mucus (Negative) Moderate Ur Culture Indicated? Yes Urine Glucose (Negative) mg/dL Negative Range/Units 04/07/21 10:40 WBC (4.4-10.8) 10^3/uL RBC (3.93-5.22) 10^6/uL Hgb (11.2-15.7) g/dL Hct (36.0-46.0) % MCV (80-95) fL MCH (27.0-33.0) pg MCHC (32.0-36.0) % RDW (11.7-14.6) % Plt Count (130-400) 10^3/uL MPV (8.0-11.0) fL Immature Gran % Neutrophils % Lymphocytes % Monocytes % Eosinophils % Basophils % Nucleated RBC % % Absolute Neutrophils (1.2-6.7) 10^3/uL Absolute Lymphocytes (1.2-3.4) 10^3/uL Absolute Monocytes (0.1-0.8) 10^3/uL Absolute Eosinophils (0.0-0.7) 10^3/uL Absolute Basophils (0.0-0.2) 10^3/uL VBG Lactate (0.6-1.4) mmol/L 1.2 Sodium (136-145) mmol/L Potassium (3.5-5.1) mmol/L Chloride (98-107) mmol/L Carbon Dioxide (21.0-32.0) mmol/L Anion Gap (3-11) mmol/L BUN (7-18) mg/dL Creatinine (0.55-1.02) mg/dL Estimated GFR/1.73 m2 (mL/min/1.73m2) Glucose (74-106) mg/dL Calcium (8.5-10.1) mg/dL Total Bilirubin (0.2-1.0) mg/dL AST (15-37) U/L ALT (14-59) U/L Alkaline Phosphatase (46-116) U/L Total Protein (6.4-8.2) g/dL Albumin (3.4-5.0) g/dL Lipase (73-393) U/L Urine Color (Yellow) Urine Clarity (Clear) Urine pH (5-8) Ur Specific [place] (1.005-1.025) Urine Protein (Negative) mg/dL Urine Ketones (Negative) mg/dL Urine Blood (Negative) Urine Nitrite (Negative) Urine Bilirubin (Negative) Urine Urobilinogen (Up TO 0.2) EU/dL Ur Leukocyte Esterase (Negative) Urine RBC (0-2) HPF Urine WBC (0-5) HPF Ur Epithelial Cells (Negative) HPF Urine Crystals (Negative) HPF Urine Bacteria (Negative) HPF Urine Casts (Negative) LPF Urine Mucus (Negative) Ur Culture Indicated? Urine Glucose (Negative) mg/dL
[2021-04-07 12:43] LABS: Source Nasal/Nares
[2021-04-07 13:24] LABS: COVID-19 PCR Negative (Negative); Influenza A PCR Negative (Negative); Influenza B PCR Negative (Negative); RSV PCR Negative (Negative)
[2021-04-07] MEDS: Acetaminophen 325 MG TAB PO ×2 (14:08→22:22)
[2021-04-07] MEDS: Lactated Ringers 1,000 ML 150 ML IV (14:10)
[2021-04-07] MEDS: levoFLOXacin 750 MG/150 ML BAG 100 MG IVPB (14:33)
[2021-04-07] MEDS: MORPHine 2 MG/ML SYR IVP ×2 (14:45→21:26)
--- NOTE | 2021-04-07 15:30 | W.PM.HP.N ---
Date of service: 04/07/21 Time of Service: 15:30 Assessment and Plan Assessment and plan (1) Pyelonephritis: Start date: 04/07/21 Start time: 15:51 Status: Acute Assessment and plan: with severe CVA tenderness and CTA results revealing 1. Main finding is swelling and abnormal enhancement of the right kidney consistent with pyelonephritis and there is also abundant perinephric streaking now evident around the right kidney. Previously described solitary small calculus in the right kidney is again noted within the kidney. Do not see radiopaque calculus long course of nondilated ureter nor within the urinary bladder. 2. The opposite-left kidney does not exhibit similar findings. It again contains a single small 2 millimeter nonobstructive calculus. Multiple modalities for pain Multiple antiemetics for nausea Urology consult levaquin for infection Await urine cx and blood cx. (2) Leukocytosis: Start date: 04/07/21 Start time: 15:56 Status: Acute Assessment and plan: due to above, as above Qualifiers: Leukocytosis type: bandemia Qualified Code(s): D72.825 - Bandemia (3) UTI (urinary tract infection): Start date: 04/07/21 Start time: 15:56 Status: Acute Assessment and plan: treatment as above Qualifiers: Urinary tract infection type: acute pyelonephritis Qualified Code(s): N10 - Acute pyelonephritis (4) Fever: Start date: 04/07/21 Start time: 15:57 Status: Acute Assessment and plan: d/t above treat as above. discussed with Dr. Verma Qualifiers: Encounter type: initial encounter History of Present Illness History of Present Illness Chief Complaint: Pyelonephritis Narrative: 20 y.o female with PMH depression, presented to [facility] after having pain with dysuria, fever and nausea since Wednesday. Today she is febrile. ED labs reveal creatinine of 1.3, sodium of 130, leukocytosis of 14.5, Anion Gap 11.5. U/a with no nitrates, small leuk estrase, 20-[address]: 1. Main finding is swelling and abnormal enhancement of the right kidney consistent with pyelonephritis and there is also abundant perinephric streaking now evident around the right kidney. Previously described solitary small calculus in the right kidney is again noted within the kidney. Do not see radiopaque calculus long course of nondilated ureter nor within the urinary bladder. 2. The opposite-left kidney does not exhibit similar findings. It again contains a single small 2 millimeter nonobstructive calculus. She was asked to be admitted to [facility] for further management. Urology consulted for further management, last u/a grew staphylococcus saprophyticus, sensitive to floroquinolines. She received ceftriaxone in the ED, however she will be placed on Levaquin daily. Pyrdium for dysuria. Morphine and toradol for pain, tylenol for fever. Urology consult. Review of Systems All systems reviewed & are unremarkable except as noted in HPI and below PFSH All Active Problems (Updated 04/07/21 @ 15:57 by Afia Lima NP) Pyelonephritis (Acute) Fever (Acute) UTI (urinary tract infection) (Acute) Leukocytosis (Acute) Acute neck pain (Acute) Back pain, thoracic (Acute) Gastroenteritis (Acute) Presence of subdermal contraceptive implant (Acute) Kidney stones (Chronic) Medical History Anemia Dizziness Fatigue Hand pain Low back pain Migraine headache with aura Near syncope Obesity TMJ dysfunction Family History Mother No problems noted. Father No problems noted. Social History Smoking/Tobacco Use Status: Never Smoking risk assessment performed?: Yes Alcohol Intake: never Drug use: Never Substance use type: does not use and other current occupation: [employer] Duration: 60-90 minutes/day Seatbelt use: sometimes Do you feel safe at home: Yes Do you feel safe in your relationship?: Yes Female Reproductive History Menstrual Age of Menarche: 11 control method: implanted History History 0 Para Hx # Term Pregnancies Multiple births Hx # Pregnancies Ectopic pregnancies AB induced Hx Number of Living Children AB spontaneous Meds Allergies and Home Medications Allergies Allergy/AdvReac Type Severity Reaction Status Date / Time peanut Allergy Severe Anaphylaxis Unverified 04/07/21 09:49 Home Medications Medication Instructions Recorded Confirmed Type etonogestrel 68 mg subdermal 1 implant SBD ONCE 10/14/18 04/07/21 History implant acetaminophen [Tylenol Extra 500 mg PO PRN PRN 11/16/18 04/07/21 History Strength] bupropion HCl 150 mg PO DAILY 08/28/20 04/07/21 History magnesium oxide 500 mg PO DAILY 02/24/21 04/07/21 History prazosin 2 mg PO HS 02/24/21 04/07/21 History sertraline 50 mg PO DAILY 02/24/21 04/07/21 History vitamin B complex [Vitamins B 1 cap PO HS 02/24/21 04/07/21 History Complex] cyclobenzaprine 5 mg tablet 5 mg PO QHS PRN 03/10/21 04/07/21 History ibuprofen [Advil] 400 mg PO Q6H PRN 04/07/21 04/07/21 History Exam Const General: cooperative, comfortable, acute distress mild and ill appearing acutely Nutritional Appearance: obese Orientation: alert, awake and oriented x3 Eyes Eyelids: eyelids normal Pupils: PERRL EOM: EOM intact bilaterally Neck Neck: normal visual inspection and no JVD Lymphatic: no lymphadenopathy noted Resp Effort & Inspection: normal respiratory effort Auscultation: clear to auscultation bilaterally Cardio Jugular venous pressure: no JVD Rhythm: regular rhythm Heart Sounds: S1 normal GI Auscultation: normal bowel sounds General: No bimanual renal exam normal bilaterally Back/Spine/Pelvis Back: No no CVA tenderness and CVA tenderness Thoracic/Lumbar Spine: thoracic and lumbar spine normal to inspection Skin General skin exam: no rashes or lesions noted Neuro General: patient alert, patient awake and patient oriented x3 Cognition: normal cognition Speech: speech normal Gait: normal gait Extrem General: normal to inspection, full ROM and no clubbing, cyanosis or edema Results Labs Result diagrams: 04/07/21 10:40 04/07/21 10:40 Labs: Laboratory Results - last 24 hr 04/07/21 04/07/21 04/07/21 09:58 10:40 10:40 WBC 14.52 H RBC 4.03 Hgb 11.6 Hct 34.8 L MCV 86.4 MCH 28.8 MCHC 33.3 RDW 12.1 Plt Count 183 MPV 12.0 H Immature Gran % 0.4 Neutrophils % 88.0 Lymphocytes % 4.1 Monocytes % 7.3 Eosinophils % 0.0 Basophils % 0.2 Nucleated RBC % 0 Absolute Neutrophils 12.78 H Absolute Lymphocytes 0.60 L Absolute Monocytes 1.06 H Absolute Eosinophils 0.00 Absolute Basophils 0.03 VBG Lactate Sodium 130 L Potassium 3.8 Chloride 94 L Carbon Dioxide 24.5 Anion Gap 11.5 H BUN 17 Creatinine 1.3 H Estimated GFR/1.73 m2 52.22 Glucose 109 H Calcium 10.0 Total Bilirubin 0.8 AST 22 ALT 37 Alkaline Phosphatase 131 H Total Protein 8.3 H Albumin 3.2 L Lipase 23 Urine Color Yellow Urine Clarity Cloudy Urine pH 6.0 Ur Specific [place] 1.020 Urine Protein 100 H Urine Ketones 40 H Urine Blood Small H Urine Nitrite Negative Urine Bilirubin Small H Urine Urobilinogen 2.0 H Ur Leukocyte Esterase Small H Urine RBC 3-5 H Urine WBC 20-50 H Ur Epithelial Cells Few Urine Crystals Negative Urine Bacteria Many Urine Casts Negative Urine Mucus Moderate Ur Culture Indicated? Yes Urine Glucose Negative COVID-19 Source SARS-CoV-2 (PCR) Influenza Type A (PCR) Influenza Type B (PCR) RSV (PCR) 04/07/21 04/07/21 10:40 12:34 WBC RBC Hgb Hct MCV MCH MCHC RDW Plt Count MPV Immature Gran % Neutrophils % Lymphocytes % Monocytes % Eosinophils % Basophils % Nucleated RBC % Absolute Neutrophils Absolute Lymphocytes Absolute Monocytes Absolute Eosinophils Absolute Basophils VBG Lactate 1.2 Sodium Potassium Chloride Carbon Dioxide Anion Gap BUN Creatinine Estimated GFR/1.73 m2 Glucose Calcium Total Bilirubin AST ALT Alkaline Phosphatase Total Protein Albumin Lipase Urine Color Urine Clarity Urine pH Ur Specific [place] Urine Protein Urine Ketones Urine Blood Urine Nitrite Urine Bilirubin Urine Urobilinogen Ur Leukocyte Esterase Urine RBC Urine WBC Ur Epithelial Cells Urine Crystals Urine Bacteria Urine Casts Urine Mucus Ur Culture Indicated? Urine Glucose COVID-19 Source Nasal/Nares SARS-CoV-2 (PCR) Negative Influenza Type A (PCR) Negative Influenza Type B (PCR) Negative RSV (PCR) Negative Last Vital Signs Temp 39.5 C H 04/07/21 13:47 Pulse 105 H 04/07/21 13:47 Resp 18 04/07/21 13:47 BP 110/64 04/07/21 13:47 Pulse Ox 98 04/07/21 13:47
--- NOTE | 2021-04-07 15:55 | UCONE_ITS ---
Date of service: 04/07/21 Time of Service: 16:30 Assessment and Plan Assessment and plan (1) Pyelonephritis: Status: Acute Assessment and plan: With no obstruction and no perinephric fluid collection, I would expect this patient to improve with antibiotics alone. If she is not responding as expected, we will need to reimage her and consider drainage of any potential abscess or pyonephrosis. At this point, there is no evidence of any drainable fluid collection. History of Present Illness History of Present Illness Chief Complaint: Pyelonephritis Narrative: This is a 20-year-old woman who was initially referred to our practice back in 2017 for urolithiasis. At that time, she had a 3 mm ureterovesical junction stone. No surgical treatment was required. I do not have assess to any stone analysis results. Since that time, we have been following her known bilateral kidney stones with yearly plain films. Her most recent visit was in February 2021. Prior to the o ffice visit, she was having back pain and was seen in the emergency room. CT scan confirmed the presence of small nonobstructing stones bilaterally. The stones were not increasing in size over time. We did not think that her back pain was related to her kidney stones given the lack of obstruction. She is currently admitted with dysuria, flank pain and fevers. The dysuria began 3 days ago. She presented to the ER today when the fevers and chills began. She was evaluated with a CT scan which again shows nonobstructing renal stones and changes to the right kidney consistent with pyelonephritis. Review of Systems Narrative: No vision change or dysphasia No diabetes or thyroid dysfunction No shortness of breath, cough or hemoptysis No chest pain or palpitations No nausea, vomiting, hepatitis, ulcers, jaundice No seizures, strokes or peripheral neuropathy No bleeding disorders or anemia No gout PFSH All Active Problems (Updated 04/08/21 @ 11:35 by Afia Lima NP) Pyelonephritis (Acute) Fever (Acute) UTI (urinary tract infection) (Acute) Acute neck pain (Acute) Back pain, thoracic (Acute) Gastroenteritis (Acute) Presence of subdermal contraceptive implant (Acute) Kidney stones (Chronic) Medical History Anemia Dizziness Fatigue Hand pain Low back pain Migraine headache with aura Near syncope Obesity TMJ dysfunction Family History Mother No problems noted. Father No problems noted. Social History Smoking/Tobacco Use Status: Never Smoking risk assessment performed?: Yes Alcohol Intake: never Drug use: Never Substance use type: does not use and other current occupation: [employer] Duration: 60-90 minutes/day Seatbelt use: sometimes Do you feel safe at home: Yes Do you feel safe in your relationship?: Yes Female Reproductive History Menstrual Age of Menarche: 11 control method: implanted History History 0 Para Hx # Term Pregnancies Multiple births Hx # Pregnancies Ectopic pregnancies AB induced Hx Number of Living Children AB spontaneous Exam Narrative Exam Narrative: She appears flushed. Her vital signs are documented elsewhere Her abdomen is soft with no guarding or peritoneal signs. She does have right CVA tenderness Her bladder is not distended There is no edema in the lower extremities. She is awake and conversant I reviewed her's CT on the PACS system. She does have small bilateral kidney stones, but no hydronephrosis. I do not see any evidence of perinephric abscess or drainable fluid collection. The right kidney is diffusely enlarged Results Last Vital Signs Temp 37.7 C H 04/07/21 15:42 Pulse 98 H 04/07/21 15:42 Resp 18 04/07/21 15:42 BP 107/70 04/07/21 15:42 Pulse Ox 98 04/07/21 15:42 Labs Result diagrams: 04/08/21 07:07 04/08/21 07:07 Labs: Laboratory Results - last 24 hr 04/07/21 04/07/21 04/07/21 09:58 10:40 10:40 WBC 14.52 H RBC 4.03 Hgb 11.6 Hct 34.8 L MCV 86.4 MCH 28.8 MCHC 33.3 RDW 12.1 Plt Count 183 MPV 12.0 H Immature Gran % 0.4 Neutrophils % 88.0 Lymphocytes % 4.1 Monocytes % 7.3 Eosinophils % 0.0 Basophils % 0.2 Nucleated RBC % 0 Absolute Neutrophils 12.78 H Absolute Lymphocytes 0.60 L Absolute Monocytes 1.06 H Absolute Eosinophils 0.00 Absolute Basophils 0.03 VBG Lactate Sodium 130 L Potassium 3.8 Chloride 94 L Carbon Dioxide 24.5 Anion Gap 11.5 H BUN 17 Creatinine 1.3 H Estimated GFR/1.73 m2 52.22 Glucose 109 H Calcium 10.0 Total Bilirubin 0.8 AST 22 ALT 37 Alkaline Phosphatase 131 H Total Protein 8.3 H Albumin 3.2 L Lipase 23 Urine Color Yellow Urine Clarity Cloudy Urine pH 6.0 Ur Specific [place] 1.020 Urine Protein 100 H Urine Ketones 40 H Urine Blood Small H Urine Nitrite Negative Urine Bilirubin Small H Urine Urobilinogen 2.0 H Ur Leukocyte Esterase Small H Urine RBC 3-5 H Urine WBC 20-50 H Ur Epithelial Cells Few Urine Crystals Negative Urine Bacteria Many Urine Casts Negative Urine Mucus Moderate Ur Culture Indicated? Yes Urine Glucose Negative COVID-19 Source SARS-CoV-2 (PCR) Influenza Type A (PCR) Influenza Type B (PCR) RSV (PCR) 04/07/21 04/07/21 10:40 12:34 WBC RBC Hgb Hct MCV MCH MCHC RDW Plt Count MPV Immature Gran % Neutrophils % Lymphocytes % Monocytes % Eosinophils % Basophils % Nucleated RBC % Absolute Neutrophils Absolute Lymphocytes Absolute Monocytes Absolute Eosinophils Absolute Basophils VBG Lactate 1.2 Sodium Potassium Chloride Carbon Dioxide Anion Gap BUN Creatinine Estimated GFR/1.73 m2 Glucose Calcium Total Bilirubin AST ALT Alkaline Phosphatase Total Protein Albumin Lipase Urine Color Urine Clarity Urine pH Ur Specific [place] Urine Protein Urine Ketones Urine Blood Urine Nitrite Urine Bilirubin Urine Urobilinogen Ur Leukocyte Esterase Urine RBC Urine WBC Ur Epithelial Cells Urine Crystals Urine Bacteria Urine Casts Urine Mucus Ur Culture Indicated? Urine Glucose COVID-19 Source Nasal/Nares SARS-CoV-2 (PCR) Negative Influenza Type A (PCR) Negative Influenza Type B (PCR) Negative RSV (PCR) Negative
[2021-04-07] MEDS: Prochlorperazine 10 MG/2 ML VIAL 5 MG IVP ×2 (16:40→22:16)
[2021-04-07] MEDS: Ketorolac 15 MG/ML VIAL IVP (18:19)
[2021-04-07] MEDS: Normal Saline Flush 10 ML SYR (18:19)
[2021-04-07] MEDS: Senna TAB 1 TAB PO (19:40)
[2021-04-07] MEDS: Phenazopyridine 100 MG TAB PO (19:40)
[2021-04-07] MEDS: Normal Saline Flush 10 ML SYR IVP ×2 (21:26→22:18)
[2021-04-07] MEDS: Vitamins B Comp w/C TAB 1 TAB PO (22:22)
[2021-04-07] MEDS: Prazosin 1 MG CAP 2 MG PO (22:22)
[2021-04-08] VITALS (7 sets, daily range): BP systolic 109–115; BP diastolic 61–69; PULSE 84–85; RESP 16–22; TEMP 37.7–38.7; O2SAT 95–98
[2021-04-08] MEDS: Lactated Ringers 1,000 ML 150 ML IV ×3 (04:38→22:01)
[2021-04-08] MEDS: Acetaminophen 325 MG TAB PO ×3 (04:56→22:00)
[2021-04-08] MEDS: MORPHine 2 MG/ML SYR IVP ×2 (06:16→22:11)
[2021-04-08] MEDS: Prochlorperazine 10 MG/2 ML VIAL 5 MG IVP (06:16)
[2021-04-08 07:21] LABS: Abs Immature Grans 0.04 10^3/uL (0.0-0.06); Absolute Basophil Count 0.02 10^3/uL (0.0-0.2); Absolute Lymphocyte Count 0.67 10^3/uL (1.2-3.4); Absolute Monocyte Count 1.32 10^3/uL (0.1-0.8); Absolute Neutrophil Count 7.48 10^3/uL (1.2-6.7); Basophils % 0.2; HCT 28.1 % (36.0-46.0); Immature Grans % 0.4; MCH 28.4 pg (27.0-33.0); MCHC 33.8 % (32.0-36.0); MCV 84.1 fL (80-95); MPV 11.6 fL (8.0-11.0); Monocytes % 13.9; Neutrophils % 78.5; Nucleated RBC 0 %; Platelet Count 152 10^3/uL (130-400); RBC 3.34 10^6/uL (3.93-5.22); RDW 12.2 % (11.7-14.6); RDW-SD 37.4 fL; WBC 9.53 10^3/uL (4.4-10.8)
[2021-04-08 07:27] LABS: HGB 9.5 g/dL (11.2-15.7)
[2021-04-08 07:46] LABS: BUN 18 mg/dL (7-18); CREATININE 1.1 mg/dL (0.55-1.02); Calcium 8.9 mg/dL (8.5-10.1); Chloride 97 mmol/L (98-107); Glucose 102 mg/dL (74-106); Magnesium 1.8 mg/dL (1.8-2.4); Potassium 3.7 mmol/L (3.5-5.1); Sodium 131 mmol/L (136-145)
[2021-04-08] MEDS: Ondansetron 4 MG/2 ML VIAL IVP (07:49)
[2021-04-08] MEDS: Sertraline 50 MG TAB PO (07:51)
[2021-04-08] MEDS: Phenazopyridine 100 MG TAB PO ×3 (07:51→21:35)
[2021-04-08] MEDS: buPROPion-XL 150 MG TABCR PO (07:51)
[2021-04-08] MEDS: Senna TAB 1 TAB PO ×2 (07:51→21:35)
[2021-04-08] MEDS: Magnesium Oxide 400 MG TAB PO (08:04)
[2021-04-08] MEDS: Ketorolac 15 MG/ML VIAL IVP ×2 (10:28→18:16)
--- NOTE | 2021-04-08 11:31 | PGE_ITS ---
Date of Service Date of service: 04/08/21 Time of Service: 11:20 Assessment and Plan Assessment and plan (1) Pyelonephritis: Start date: 04/08/21 Start time: 11:15 Status: Acute Assessment and plan: with CVA tenderness improving 1. Main finding is swelling and abnormal enhancement of the right kidney consistent with pyelonephritis and there is also abundant perinephric streaking now evident around the right kidney. Previously described solitary small calculus in the right kidney is again noted within the kidney. Do not see radiopaque calculus long course of nondilated ureter nor within the urinary bladder. 2. The opposite-left kidney does not exhibit similar findings. It again c ontains a single small 2 millimeter nonobstructive calculus. Multiple modalities for pain Multiple antiemetics for nausea which is improved Urology consult no need for any intervention at this time levaquin for infection, urine cx growing e.coli blood cx. pening. (2) Leukocytosis: Start date: 04/08/21 Start time: 11:15 Status: Resolved Assessment and plan: resolved, from above Qualifiers: Leukocytosis type: bandemia Qualified Code(s): D72.825 - Bandemia (3) UTI (urinary tract infection): Start date: 04/08/21 Start time: 11:15 Status: Acute Assessment and plan: treatment as above Qualifiers: Urinary tract infection type: acute pyelonephritis Qualified Code(s): N10 - Acute pyelonephritis (4) Fever: Start date: 04/08/21 Start time: 11:15 Status: Acute Assessment and plan: d/t above treat as above. Fever overnight discussed with Dr. Verma Qualifiers: Encounter type: initial encounter Subjective Subjective Patient reports: still having pain Interval history since last seen: Pain to cVA and lower abd, improved, nausea improved but still there. Febrile overnight. Creatinine improved. Exam Const General: cooperative and comfortable Nutritional Appearance: obese Orientation: alert, awake and oriented x3 Eyes Eyelids: eyelids normal Pupils: PERRL EOM: EOM intact bilaterally Neck Neck: normal visual inspection and no JVD Lymphatic: no lymphadenopathy noted Resp Effort & Inspection: normal respiratory effort Auscultation: clear to auscultation bilaterally Cardio Jugular venous pressure: no JVD Rhythm: regular rhythm Heart Sounds: S1 normal GI Auscultation: normal bowel sounds General: No bimanual renal exam normal bilaterally Back/Spine/Pelvis Back: CVA tenderness Thoracic/Lumbar Spine: thoracic and lumbar spine normal to inspection Skin General skin exam: no rashes or lesions noted Neuro General: patient alert, patient awake and patient oriented x3 Cognition: normal cognition Speech: speech normal Gait: normal gait Extrem General: normal to inspection, full ROM and no clubbing, cyanosis or edema Objective Last Vital Signs Temp 37.8 C H 04/08/21 04:56 Pulse 102 H 04/07/21 23:40 Resp 24 04/07/21 23:40 BP 117/63 04/07/21 23:40 Pulse Ox 95 04/07/21 23:40 Laboratory Results - last 24 hr 04/07/21 04/08/21 04/08/21 12:34 07:07 07:07 WBC 9.53 D RBC 3.34 L Hgb 9.5 L D Hct 28.1 L MCV 84.1 MCH 28.4 MCHC 33.8 RDW 12.2 Plt Count 152 MPV 11.6 H Immature Gran % 0.4 Neutrophils % 78.5 Lymphocytes % 7.0 Monocytes % 13.9 Eosinophils % 0.0 Basophils % 0.2 Nucleated RBC % 0 Absolute Neutrophils 7.48 H Absolute Lymphocytes 0.67 L Absolute Monocytes 1.32 H Absolute Eosinophils 0.00 Absolute Basophils 0.02 Sodium 131 L Potassium 3.7 Chloride 97 L Carbon Dioxide 22.0 Anion Gap 12.0 H BUN 18 Creatinine 1.1 H Estimated GFR/1.73 m2 >= 60.00 Glucose 102 Calcium 8.9 Magnesium 1.8 COVID-19 Source Nasal/Nares SARS-CoV-2 (PCR) Negative Influenza Type A (PCR) Negative Influenza Type B (PCR) Negative RSV (PCR) Negative
[2021-04-08] MEDS: Metoclopramide 10 MG/2 ML VIAL IVP (12:02)
[2021-04-08] MEDS: Mylanta Suspension 30 ML CUP PO (13:07)
[2021-04-08] MEDS: Omeprazole 20 MG CAPCR PO (13:07)
[2021-04-08] MEDS: levoFLOXacin 750 MG/150 ML BAG 100 MG IVPB (14:22)
[2021-04-08] MEDS: Normal Saline Flush 10 ML SYR IVP ×3 (14:23→22:11)
[2021-04-08] MEDS: Docusate Sodium 100 MG CAP PO (17:39)
--- NOTE | 2021-04-08 17:56 | INITIAL_ITS ---
- If Service Date Differs Date of service: 04/08/21 Time of Service: 17:56 Care Management Initial Assess REASON FOR HOSPITALIZATION:: Pyelonephritis PAST MEDICAL HISTORY/PAST SURGICAL HISTORY:: Anemia. Dizziness. Fatigue. Hand pain. Low back pain. Migraine headache with aura. Near syncope. Obesity. TMJ dysfunction PREVIOUS FUNCTIONAL STATUS/SOCIAL/FAMILY SUPPORTS:: [place], she is independent at baseline. CURRENT FUNCTIONAL STATUS:: Kaykay remains inpatient and has no needs at this time. CM continues to follow. ADVANCE DIRECTIVES:: None on file. Has patient been provided with info about the portal/API?: Yes Did the patient sign up for the portal?: No CODE STATUS:: Full Code INSURANCE COVERAGE / FINANCIAL ISSUES:: Medicaid CURRENT HOME/COMMUNITY SERVICES/EQUIPMENT:: None currently. PRIMARY CARE PHYSICIAN:: Marixa Rosales POTENTIAL DISCHARGE NEEDS:: Follow up appointments. PATIENT/FAMILY EDUCATION NEEDS:: Review discharge instructions, discuss Ask Me Three. ANTICIPATED BARRIERS TO DISCHARGE:: None identified at this time. TRANSPORTATION:: Via private vehicle with family. PLAN:: Kaykay will return home when ready per MD. She continues to be monitored and treated at this time. CM continues to follow. Kaykay will follow up wtih her PCP and transport home via private vehicle with family.
[2021-04-08] MEDS: Glycerin Adult Suppository JAR 1 SUPP PR (18:06)
[2021-04-08] MEDS: Vitamins B Comp w/C TAB 1 TAB PO (21:35)
[2021-04-08] MEDS: Prazosin 1 MG CAP 2 MG PO (21:35)
[2021-04-08] MEDS: Cyclobenzaprine 10 MG TAB 5 MG PO (22:11)
[2021-04-09] MEDS: Ketorolac 15 MG/ML VIAL IVP ×3 (02:00→19:05)
[2021-04-09] MEDS: MORPHine 2 MG/ML SYR IVP (06:44)
[2021-04-09] MEDS: Normal Saline Flush 10 ML SYR IVP ×3 (06:45→21:15)
[2021-04-09] MEDS: Acetaminophen 325 MG TAB PO ×4 (06:54→21:57)
[2021-04-09] MEDS: Phenazopyridine 100 MG TAB PO ×3 (07:55→20:24)
[2021-04-09] MEDS: Senna TAB 1 TAB PO ×2 (07:55→20:24)
[2021-04-09] MEDS: buPROPion-XL 150 MG TABCR PO (07:55)
[2021-04-09] MEDS: Sertraline 50 MG TAB PO (07:55)
[2021-04-09] MEDS: Omeprazole 20 MG CAPCR PO (07:55)
[2021-04-09] MEDS: Magnesium Oxide 400 MG TAB PO (07:55)
[2021-04-09 08:04] VITALS: BP 126/84; PULSE 104; RESP 19; TEMP 37.9; O2SAT 95
[2021-04-09] MEDS: Lactated Ringers 1,000 ML 100 ML IV ×2 (08:23→21:58)
--- NOTE | 2021-04-09 09:04 | W.PM.PROGNOT ---
Date of Service Date of service: 04/09/21 Time of Service: 08:15 Assessment and Plan Assessment and plan (1) Pyelonephritis: Start date: 04/09/21 Start time: 08:15 Status: Acute Assessment and plan: CVA tenderness improving. urine cx revealing e.coli blood cx negative. (2) Leukocytosis: Start date: 04/09/21 Start time: 08:15 Status: Resolved Assessment and plan: resolved, from above Qualifiers: Leukocytosis type: bandemia Qualified Code(s): D72.825 - Bandemia (3) UTI (urinary tract infection): Start date: 04/09/21 Start time: 08:15 Status: Acute Assessment and plan: treatment as above Qualifiers: Urinary tract infection type: acute pyelonephritis Qualified Code(s): N10 - Acute pyelonephritis (4) Fever: Start date: 04/09/21 Start time: 08:15 Status: Acute Assessment and plan: d/t above treat as above. Fever overnight but defervescing discussed with Dr. Verma Qualifiers: Fever type: due to other condition Qualified Code(s): R50.81 - Fever presenting with conditions classified elsewhere Subjective Subjective Patient reports: feels better Interval history since last seen: Feeling slightly better today. Will trial clears and advance as tolerated. Exam Const General: cooperative, comfortable, acute distress mild and ill appearing acutely Nutritional Appearance: obese Orientation: alert, awake and oriented x3 Eyes Eyelids: eyelids normal Pupils: PERRL EOM: EOM intact bilaterally Neck Neck: normal visual inspection and no JVD Lymphatic: no lymphadenopathy noted Resp Effort & Inspection: normal respiratory effort Auscultation: clear to auscultation bilaterally Cardio Jugular venous pressure: no JVD Rhythm: regular rhythm Heart Sounds: S1 normal GI Auscultation: normal bowel sounds General: No bimanual renal exam normal bilaterally (pain improved from yesterday) and CVA tenderness (pain improved) bilaterally Back/Spine/Pelvis Back: No no CVA tenderness and CVA tenderness (pain improved from yesterday predominantly more on the rigth side) Thoracic/Lumbar Spine: thoracic and lumbar spine normal to inspection Skin General skin exam: no rashes or lesions noted Neuro General: patient alert, patient awake and patient oriented x3 Cognition: normal cognition Speech: speech normal Gait: normal gait Extrem General: normal to inspection, full ROM and no clubbing, cyanosis or edema Objective Last Vital Signs Temp 37.9 C H 04/09/21 08:04 Pulse 104 H 04/09/21 08:04 Resp 19 04/09/21 08:04 BP 126/84 04/09/21 08:04 Pulse Ox 95 04/09/21 08:04
[2021-04-09 09:33] LABS: Abs Immature Grans 0.04 10^3/uL (0.0-0.06); Absolute Basophil Count 0.01 10^3/uL (0.0-0.2); Absolute Eosinophil Count 0.01 10^3/uL (0.0-0.7); Absolute Lymphocyte Count 0.81 10^3/uL (1.2-3.4); Absolute Monocyte Count 0.97 10^3/uL (0.1-0.8); Basophils % 0.2; Eosinophils % 0.2; HCT 28.7 % (36.0-46.0); HGB 9.7 g/dL (11.2-15.7); Immature Grans % 0.6; Lymphocytes % 12.2; MCHC 33.8 % (32.0-36.0); MCV 85.9 fL (80-95); MPV 11.7 fL (8.0-11.0); Monocytes % 14.7; Neutrophils % 72.1; Nucleated RBC 0 %; Platelet Count 172 10^3/uL (130-400); RBC 3.34 10^6/uL (3.93-5.22); RDW 12.2 % (11.7-14.6); RDW-SD 38.8 fL; WBC 6.62 10^3/uL (4.4-10.8)
[2021-04-09 09:34] LABS: Absolute Neutrophil Count 4.77 10^3/uL (1.2-6.7)
[2021-04-09 09:44] LABS: Anion Gap 9.7 mmol/L (3-11); BUN 16 mg/dL (7-18); CO2 24.3 mmol/L (21.0-32.0); Calcium 8.8 mg/dL (8.5-10.1); Chloride 97 mmol/L (98-107); Glucose 102 mg/dL (74-106); Potassium 3.5 mmol/L (3.5-5.1); Sodium 131 mmol/L (136-145)
[2021-04-09] MEDS: Prochlorperazine 10 MG/2 ML VIAL 5 MG IVP (13:14)
[2021-04-09] MEDS: levoFLOXacin 750 MG/150 ML BAG 100 MG IVPB (14:26)
[2021-04-09 15:24] VITALS: BP 117/77; PULSE 76; RESP 18; TEMP 36.8; O2SAT 96
--- NOTE | 2021-04-09 15:59 | CMPROGNOTE_ITS ---
- If Service Date Differs Date of service: 04/09/21 Time of Service: 15:59 Care Management Progress Note S/O: Kaykay was sitting up in her chair when CM met with her. She reported that she was able to take a shower today, which made her feel much better. She stated that she is overall feeling better today. She stated that she has been talking to her mother frequently throughout the day. CM brought her a coloring book, word search and colored pencils to help her pass the time, which she was appreciative of. Per report, her diet is being advanced today. CM will continue to follow. A: Kaykay is a 20 year old female admitted to [facility] on 04/07/21 with pyelonephritis. P: Kaykay will return home when ready per MD. She continues to be monitored and treated at this time. CM continues to follow. Kaykay will follow up wtih her PCP and transport home via private vehicle with family.
[2021-04-09] MEDS: Ondansetron 4 MG/2 ML VIAL IVP (21:14)
[2021-04-09] MEDS: Prazosin 1 MG CAP 2 MG PO (21:57)
[2021-04-09] MEDS: Cyclobenzaprine 10 MG TAB 5 MG PO (21:58)
[2021-04-09] MEDS: Vitamins B Comp w/C TAB 1 TAB PO (21:58)
[2021-04-09 23:52] VITALS: BP 137/72; PULSE 89; RESP 18; TEMP 38.1; O2SAT 94
[2021-04-10 06:49] VITALS: TEMP 36.7
[2021-04-10 07:07] LABS: Abs Immature Grans 0.05 10^3/uL (0.0-0.06); Absolute Basophil Count 0.01 10^3/uL (0.0-0.2); Absolute Eosinophil Count 0.01 10^3/uL (0.0-0.7); Absolute Lymphocyte Count 0.93 10^3/uL (1.2-3.4); Absolute Monocyte Count 0.62 10^3/uL (0.1-0.8); Absolute Neutrophil Count 4.32 10^3/uL (1.2-6.7); Basophils % 0.2; Eosinophils % 0.2; HCT 27.7 % (36.0-46.0); HGB 9.4 g/dL (11.2-15.7); Immature Grans % 0.8; Lymphocytes % 15.7; MCH 29.6 pg (27.0-33.0); MCHC 33.9 % (32.0-36.0); MCV 87.1 fL (80-95); MPV 11.3 fL (8.0-11.0); Monocytes % 10.4; Neutrophils % 72.7; Nucleated RBC 0 %; Platelet Count 183 10^3/uL (130-400); RBC 3.18 10^6/uL (3.93-5.22); RDW 12.2 % (11.7-14.6); RDW-SD 39.8 fL; WBC 5.94 10^3/uL (4.4-10.8)
[2021-04-10 07:19] VITALS: BP 131/79; PULSE 78; RESP 16; TEMP 36.8; O2SAT 96
[2021-04-10 07:25] LABS: Anion Gap 8.9 mmol/L (3-11); CO2 27.1 mmol/L (21.0-32.0); CREATININE 0.9 mg/dL (0.55-1.02); Calcium 8.6 mg/dL (8.5-10.1); Chloride 100 mmol/L (98-107); Glucose 98 mg/dL (74-106); Potassium 3.5 mmol/L (3.5-5.1); Sodium 136 mmol/L (136-145)
[2021-04-10 07:27] LABS: BUN 9 mg/dL (7-18)
[2021-04-10 07:39] VITALS: BP 112/71; PULSE 77; RESP 18; TEMP 37.2; O2SAT 95
[2021-04-10] MEDS: Sertraline 50 MG TAB PO (07:44)
[2021-04-10] MEDS: Phenazopyridine 100 MG TAB PO (07:44)
[2021-04-10] MEDS: Senna TAB 1 TAB PO (07:44)
[2021-04-10] MEDS: Magnesium Oxide 400 MG TAB PO (07:44)
[2021-04-10] MEDS: Omeprazole 20 MG CAPCR PO (07:44)
[2021-04-10] MEDS: buPROPion-XL 150 MG TABCR PO (07:44)
[2021-04-10] MEDS: Lactated Ringers 1,000 ML 100 ML IV (07:54)
--- NOTE | 2021-04-10 08:31 | W.PM.DS.N ---
Date of service: 04/10/21 Time of Service: 07:30 DS: Diagnosis Discharge Diagnosis (1) Pyelonephritis: Start date: 04/10/21 Start time: 07:30 Status: Acute Asessment and Plan: Improving. Fevers have defervesced. She is feeling much better. Urine cx grew e. coli. She has been on levaquin. Will finish a full course levaquin for 7 days. She will need an additional 5 day course. She denies pain. Recommend 600 mg ibuprofen for pain if she does have some. Blood cultures negative, therefore she is being discharged home (2) Leukocytosis: Start date: 04/10/21 Start time: 07:30 Status: Resolved Asessment and Plan: resolved. (3) UTI (urinary tract infection): Start date: 04/10/21 Start time: : Status: Acute Asessment and Plan: as above (4) Fever: Start date: 04/10/21 Start time: 07:30 Status: Acute Asessment and Plan: as above. Defervesced. discussed with Dr. Verma Discharge Plan Disposition Patient Disposition: HOME Condition: Improving Discharge Details Reason For Visit: Pyelonephritis Admit Date/Time: 04/09/21 20:36 Admit Provider: Lea Verma Attending Provider: Lea Verma Primary Care Provider: [facility] Course Hospital Course: 20 y.o female with H depression, presented to [facility] after having pain with dysuria, fever and nausea since Wednesday. Febrile in the ED. Labs revealed creatinine of 1.3, sodium of 130, leukocytosis of 14.5, Anion Gap 11.5. U/a with no nitrates, small leuk estrase, 20-[address]: 1. Main finding is swelling and abnormal enhancement of the right kidney consistent with pyelonephritis and there is also abundant perinephric streaking now evident around the right kidney. Previously described solitary small calculus in the right kidney is again noted within the kidney. Do not see radiopaque calculus long course of nondilated ureter nor within the urinary bladder. 2. The opposite-left kidney does not exhibit similar findings. It again contains a single small 2 millimeter nonobstructive calculus. She was asked to be admitted to [facility] for further management. Urology consulted he did not feel there needed to be any further work up continue antibiotics. She was nauseated for a couple of days. However over the last 24 hours she has been feeling well, eating well, no nausea or vomiting, fevers have defervesced. Urine cx pansensitive. Today she feels much better. She looks well. She will be dischaged home on levaquin. She has received 2 days worth she will be given another 5 days worth for a total of 7 days for a complicated UTI. F/u with PCP in 1-2 weeks. She denies pain. Recommend ibuprofen for pain if pain does occur. Home Meds and New Rx's Prescriptions: New levofloxacin 750 mg tablet 750 mg PO DAILY Qty: 5 RF: 0 Continued Nexplanon 68 mg implant 1 implant SBD ONCE RF: 0 cyclobenzaprine 5 mg tablet 5 mg PO QHS PRNRF: 0 acetaminophen [Tylenol Extra Strength] 500 mg Tablet 500 mg PO PRN PRNRF: 0 ibuprofen [Advil] 200 mg Tablet 400 mg PO Q6H PRNRF: 0 bupropion HCl 150 mg tablet extended release 24 hr 150 mg PO DAILY RF: 0 prazosin 1 mg capsule 2 mg PO HS RF: 0 magnesium oxide 500 mg tablet 500 mg PO DAILY RF: 0 sertraline 50 mg tablet 50 mg PO DAILY RF: 0 vitamin B complex [Vitamins B Complex] Capsule 1 cap PO HS RF: 0 Discharge Instructions Instructions: Urinary Tract Infection in Women (DC), Kidney Infection (DC) Additional Instructions: Take levaquin for 5 days Take ibuprofen as needed for pain 600 mg three times a day Stand Alone Forms: Nursing Discharge Form Referrals: Marixa Rosales [Primary Care Provider] - 04/28/21 8:50 am Activity:: Activity as Tolerated Equipment/Supplies:: No Equipment Needed Diet:: Normal Diet Discharge Orders Discharge Orders: Discharge Order (Routine); Ordered 04/10/21 Ordered By: Afia Lima DS: Summary Time Spent with Patient providing and/or coordinating discharge services: Less than 30 minutes Status at Discharge Functional status at discharge: independent ambulation Overall status at discharge: patient is progressing back to baseline Mental Status: mental status grossly normal Speech and Movement: speech and movement normal Mood: congruent mood Affect: normal affect Exam Const General: cooperative, comfortable, acute distress mild and ill appearing acutely Nutritional Appearance: obese Orientation: alert, awake and oriented x3 Eyes Eyelids: eyelids normal Pupils: PERRL EOM: EOM intact bilaterally Neck Neck: normal visual inspection and no JVD Lymphatic: no lymphadenopathy noted Resp Effort & Inspection: normal respiratory effort Auscultation: clear to auscultation bilaterally Cardio Jugular venous pressure: no JVD Rhythm: regular rhythm Heart Sounds: S1 normal GI Auscultation: normal bowel sounds Back/Spine/Pelvis Back: No no CVA tenderness Thoracic/Lumbar Spine: thoracic and lumbar spine normal to inspection Skin General skin exam: no rashes or lesions noted Neuro General: patient alert, patient awake and patient oriented x3 Cognition: normal cognition Speech: speech normal Gait: normal gait Extrem General: normal to inspection, full ROM and no clubbing, cyanosis or edema Psych Mental Status: mental status grossly normal Speech and Movement: speech and movement normal Mood: congruent mood Affect: normal affect DS: Data Vitals/I&O Vitals and I&O: Vital Signs Temperature 37.2 C 04/10/21 07:39 Temperature Source Tympanic 04/10/21 07:39 Pulse 77 04/10/21 07:39 Pulse Rhythm Regular 04/10/21 03:28 Respiratory Rate 18 04/10/21 07:39 Respiratory Effort Non-Labored 04/10/21 03:28 Respiratory Depth Normal 04/10/21 03:28 Respiratory Pattern Normal 04/10/21 03:28 Blood Pressure 112/71 04/10/21 07:39 Blood Pressure Position Sitting 04/07/21 09:34 Pulse Oximetry 95 04/10/21 07:39 Oxygen Delivery Method Room Air 04/10/21 07:39 Oxygen Flow Rate 0 04/10/21 07:39 Pain Level 0 04/10/21 07:19 Comment 04/09/21 23:52 Intake & Output 04/09/21 04/09/21 04/10/21 11:59 23:59 11:59 Intake Total 1480 / 2960 1480 / 2960 993.333 / 993.333 Balance 1480 / 2960 1480 / 2960 993.333 / 993.333 Intake: IV 999 / 1999 999 / 1999 993.333 / 993.333 Oral 480 / 960 480 / 960 Other: Urine Color Yellow Yellow Urine Appearance Clear Clear Urine Odor None None Comment pT stated that she has used the bathroom and she voided. patient reported voiding throughout the day voids independently in the bathroom Voiding Methods Toilet Toilet Toilet Data Completed and Pending Completed studies during hospitalization [Text1]: Exam(s) a CT:CT abdomen & pelvis w Exam(s) CT ABDOMEN PELVIS W EXAM: CT ABDOMEN PELVIS W CLINICAL HISTORY: abdominal and flank pain, fever, hx of stones. TECHNIQUE: Imaging Protocol: Axial computed tomography images with coronal and sagittal reformatted images were created and reviewed CONTRAST MATERIAL: Intravenous: Omnipaque 100cc Oral: None COMPARISON: CT CT ABDOMEN PELVIS W from 02/24/2021 FINDINGS: VISUALIZED LUNG BASES: Mild increased markings in the posterior basal segment right lower lobe and same location left lower lobe. No associated pleural effusions. ABDOMEN: LIVER: Mild hepatic steatosis. No discrete focal hepatic lesions nor dilatation of intrahepatic ducts. GALLBLADDER/BILIARY: No obvious gallbladder pathology. CBD is not dilated. PANCREAS: No evidence of pancreatic mass nor dilatation of the pancreatic duct. SPLEEN: Size is upper normal-minimally prominent. No intrasplenic lesions. Splenic and portal veins are patent. ADRENALS: There are no significant adrenal masses. KIDNEYS:Small solitary nonobstructive calculus in the left kidney is again noted, unchanged. No other left kidney findings. However, there has been significant change in the appearance of the right kidney. Small calculus again noted in the right kidney, unchanged position measuring 2 millimeters. However, the entire right kidney now enhances inhomogeneously and exhibits perinephric streaking, consistent with pyelonephritis. There is no caliectasis of the right kidney. Right ureter is not dilated. No evidence of ureteral calculi nor calculi in the ureterovesical junction or in the urinary bladder (which is not distended). There is no gas in the urinary bladder. ABDOMINAL AORTA: Abdominal aorta is not enlarged. LYMPH NODES:There is no retroperitoneal nor paraaortic adenopathy. ABDOMINAL WALL: No evidence of significant anterior abdominal wall nor inguinal hernia. GI: There is no evidence of bowel obstruction, free air, nor abscess. Small amount of free fluid in the dependent aspect of the pelvis noted PELVIS: GI: No evidence of appendicitis.No evidence of sigmoid diverticulitis. LYMPH NODES: There is no intrapelvic nor inguinal adenopathy. REPRODUCTIVE: Uterus and adnexal regions appear unremarkable. URINARY BLADDER: No calculi nor obvious masses evident OSSEOUS: No osseous lesions. No fractures. IMPRESSION: 1. Main finding is swelling and abnormal enhancement of the right kidney consistent with pyelonephritis and there is also abundant perinephric streaking now evident around the right kidney. Previously described solitary small calculus in the right kidney is again noted within the kidney. Do not see radiopaque calculus long course of nondilated ureter nor within the urinary bladder. 2. The opposite-left kidney does not exhibit similar findings. It again contains a single small 2 millimeter nonobstructive calculus. Labs on day of discharge: Labs from last 24 hours 04/10/21 04/10/21 04/09/21 06:30 06:30 09:10 WBC 5.94 6.62 D RBC 3.18 L 3.34 L Hgb 9.4 L 9.7 L Hct 27.7 L 28.7 L MCV 87.1 85.9 MCH 29.6 29.0 MCHC 33.9 33.8 RDW 12.2 12.2 Plt Count 183 172 MPV 11.3 H 11.7 H Immature Gran % 0.8 0.6 Neutrophils % 72.7 72.1 Lymphocytes % 15.7 12.2 Monocytes % 10.4 14.7 Eosinophils % 0.2 0.2 Basophils % 0.2 0.2 Nucleated RBC % 0 0 Absolute Neutrophils 4.32 4.77 Absolute Lymphocytes 0.93 L 0.81 L Absolute Monocytes 0.62 0.97 H Absolute Eosinophils 0.01 0.01 Absolute Basophils 0.01 0.01 Sodium 136 Potassium 3.5 Chloride 100 Carbon Dioxide 27.1 Anion Gap 8.9 BUN 9 D Creatinine 0.9 Estimated GFR/1.73 m2 >= 60.00 Glucose 98 Calcium 8.6 04/09/21 09:10 WBC RBC Hgb Hct MCV MCH MCHC RDW Plt Count MPV Immature Gran % Neutrophils % Lymphocytes % Monocytes % Eosinophils % Basophils % Nucleated RBC % Absolute Neutrophils Absolute Lymphocytes Absolute Monocytes Absolute Eosinophils Absolute Basophils Sodium 131 L Potassium 3.5 Chloride 97 L Carbon Dioxide 24.3 Anion Gap 9.7 BUN 16 Creatinine 1.0 Estimated GFR/1.73 m2 >= 60.00 Glucose 102 Calcium 8.8 Preliminary micro results at discharge 04/07/21 12:25 Blood Culture - Preliminary Blood NO GROWTH 48 HOURS 04/07/21 10:40 Blood Culture - Preliminary Blood NO GROWTH 48 HOURS PFSH All Active Problems Pyelonephritis (Acute) Fever (Acute) UTI (urinary tract infection) (Acute) Acute neck pain (Acute) Back pain, thoracic (Acute) Gastroenteritis (Acute) Presence of subdermal contraceptive implant (Acute) Kidney stones (Chronic) Medical History Anemia Dizziness Fatigue Hand pain Low back pain Migraine headache with aura Near syncope Obesity TMJ dysfunction Family History Mother No problems noted. Father No problems noted. Social History Smoking/Tobacco Use Status: Never Smoking risk assessment performed?: Yes Alcohol Intake: never Drug use: Never Substance use type: does not use and other current occupation: [employer] Duration: 60-90 minutes/day Seatbelt use: sometimes Do you feel safe at home: Yes Do you feel safe in your relationship?: Yes Female Reproductive History Menstrual Age of Menarche: 11 control method: implanted History History 0 Para Hx # Term Pregnancies Multiple births Hx # Pregnancies Ectopic pregnancies AB induced Hx Number of Living Children AB spontaneous
--- NOTE | 2021-04-10 16:56 | PDOC.CMDIS ---
- If Service Date Differs Date of service: 04/10/21 Time of Service: 16:56 LACE Index Scoring Tool - Questions: Acuity (Admit via E.D.?): Yes E.D. Visits: 1 Care Management Discharge Reason for Hospitalization: Pyelonephritis Discharge Plan: Kaykay will return home when ready per MD. She will follow up wtih her PCP and transport home via private vehicle with family. Patient/Family Education Needs: Review discharge instructions, discuss Ask Me Three.
== END 2021-04-10 10:11 | disposition home or self-care (01) | DRG 690 ==
LOC: ER 12:53 → MS 13:43
PROVIDERS: Nurse Practitioner Family; Admitting Provider Internal Medicine; Emergency Provider Physician Assistant; PCP Nurse Practitioner Family; Visit Provider Internal Medicine
DX: N10 Acute pyelonephritis (principal); Z68.41 Body mass index [BMI] 40.0-44.9, adult; N20.0 Calculus of kidney; D72.825 Bandemia; D64.9 Anemia, unspecified; E66.9 Obesity, unspecified; G43.109 Migraine with aura, not intractable, without status migrainosus; M54.50 Low back pain, unspecified; M54.6 Pain in thoracic spine; R50.81 Fever presenting with conditions classified elsewhere
CPT/HCPCS: 36415; 80048; 80053; 83690; 87040; 87077; 87637; 96361; 96365; 96375; 99285; 74177; 81003; 81015; 83605; 83735; 85025; 87086; 87186; 99220; 99224; 99232; 99238; G0378; J0131; J0780; J1885; J1956; J2270; J2405; J2765; J3490

== ENCOUNTER 2021-04-15 16:34 | Outpatient (REF) | payer MEDICAID, SELFPAY ==
[2021-04-17 13:53] LABS: Chlamydia Result Negative (Negative); GC Result Negative (Negative)
== END 2021-04-15 16:35 | disposition home or self-care (01) ==
LOC: LBN 16:34
PROVIDERS: PCP Nurse Practitioner Family; Visit Provider Nurse Practitioner Women's Health
DX: Z11.3 Encounter for screening for infections with a predominantly sexual mode of transmission (principal); N76.0 Acute vaginitis
CPT/HCPCS: 87491; 87591; 87480; 87510; 87660

== ENCOUNTER 2021-04-21 15:52 | Outpatient (REF) | payer MEDICAID, SELFPAY ==
[2021-04-21 21:26] LABS: Abs Immature Grans 0.02 10^3/uL (0.0-0.06); Absolute Basophil Count 0.04 10^3/uL (0.0-0.2); Absolute Eosinophil Count 0.03 10^3/uL (0.0-0.7); Absolute Lymphocyte Count 1.59 10^3/uL (1.2-3.4); Absolute Monocyte Count 0.33 10^3/uL (0.1-0.8); Absolute Neutrophil Count 3.83 10^3/uL (1.2-6.7); Basophils % 0.7; Eosinophils % 0.5; HCT 36.6 % (36.0-46.0); HGB 11.7 g/dL (11.2-15.7); Immature Grans % 0.3; Lymphocytes % 27.2; MCH 29.3 pg (27.0-33.0); MCV 91.7 fL (80-95); MPV 11.5 fL (8.0-11.0); Monocytes % 5.7; Neutrophils % 65.6; Nucleated RBC 0 %; Platelet Count 282 10^3/uL (130-400); RBC 3.99 10^6/uL (3.93-5.22); RDW 12.7 % (11.7-14.6); RDW-SD 42.4 fL; WBC 5.84 10^3/uL (4.4-10.8)
[2021-04-21 21:34] LABS: Iron 103 ug/dL (50-170); Total Iron Binding Capacity 318 ug/dL (250-450); Transferrin Sat 32 % (15-50)
[2021-04-21 21:47] LABS: Ferritin 146 ng/mL (8-252)
== END 2021-04-21 15:53 | disposition home or self-care (01) ==
LOC: NCHCN 15:52
PROVIDERS: PCP Nurse Practitioner Family; Visit Provider Nurse Practitioner Family
DX: R23.8 Other skin changes (principal); R23.3 Spontaneous ecchymoses; R53.83 Other fatigue; R42 Dizziness and giddiness
CPT/HCPCS: 82728; 83540; 83550; 85025

== ENCOUNTER 2021-05-20 14:13 | Outpatient (REF) | payer MEDICAID, SELFPAY ==
--- NOTE | 2021-05-20 13:30 | PAPFT_PTH ---
PATIENT: Kaykay Majano LOC: [facility] U#:[id number] AGE/SX: 21/F ROOM: RE05/20/[address]: Hoa Roche NP : [id number] BED: DIS: 05/20/2021 SPEC #: [id number] RECD: 05/20/21 18:15 STATUS: DELIA RERizwan #: [id number] ROSI: 05/20/21 13:[address]: Hoa Roche NP DEPT: [facility] Cytology RECD BY: Lu Pat ENTERED: 05/20/21 18:15 SP TYPE: PAPFT OTHR DR: Marixa Rosales Tissues: 1 - CX/ENDOCX FOR PAP SMEARS Procedures: PAP THIN PREP/UVM Screening Comments: [id number] (CHLAMYDIA/GC)
[2021-05-21 14:41] LABS: Chlamydia Result Negative (Negative); GC Result Negative (Negative)
== END 2021-05-20 14:14 | disposition home or self-care (01) ==
LOC: LBN 14:13
PROVIDERS: PCP Nurse Practitioner Family; Visit Provider Nurse Practitioner Women's Health
DX: Z12.4 Encounter for screening for malignant neoplasm of cervix (principal); Z11.3 Encounter for screening for infections with a predominantly sexual mode of transmission
CPT/HCPCS: 87491; 87591; 88142

== ENCOUNTER → 2021-08-12 17:25 | Outpatient (CLI) | payer MEDICAID, SELFPAY ==
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
--- NOTE | 2021-08-12 18:25 | DI.VRAD_ITS ---
PROCEDURE INFORMATION: Exam: XR Right Tibia and Fibula Exam date and time: 08/12/2021 6:00 PM Age: 21 years old Clinical indication: Pain; Lower leg; Right TECHNIQUE: Imaging protocol: XR Right tibia and fibula. Views: 2 views. COMPARISON: CR XR ANKLE RT COMPLETE 11/16/2018 5:01 PM FINDINGS: Bones/joints: Normal. Soft tissues: Normal. IMPRESSION: No definite fracture. See separate knee report. Dictated and Authenticated by: Ileana Hugo MD. Ordering:LEANNE Quiroga MD
== END ==
PROVIDERS: PCP Nurse Practitioner Family; Visit Provider Nurse Practitioner Family
DX: M25.571 Pain in right ankle and joints of right foot (principal); M79.604 Pain in right leg; M79.671 Pain in right foot; M25.061 Hemarthrosis, right knee; M25.561 Pain in right knee
CPT/HCPCS: 73562; 73590; 73610; 73630

== ENCOUNTER → 2021-08-13 18:44 | Outpatient (CLI) | payer MEDICAID, SELFPAY ==
--- NOTE | 2021-08-13 | DI.CT_ITS ---
Exam(s) CT LOWER EXTREMITY RT WO EXAM: CT LOWER EXTREMITY RT WO CLINICAL HISTORY: RT LEG PAIN, M79.604; POSSIBLE FX IN RT KNEE ON XR TECHNIQUE: COMPARISON: CT LT.UPPER EXTREMITY WO CONTRAST from 09/26/2015 FINDINGS: CT examination of the knee was performed utilizing multi slice acquisition and multiplanar reconstruc tion. No knee joint effusion seen. No fracture identified. Bipartite patella noted. IMPRESSION: No evidence of acute injury. RADIATION DOSE DELIVERED: 199.6mGy.cm Total DLP !Error CTDIvol RADIATION OPTIMIZATION: All CT scans at this facility use at least one of these dose optimization te chniques: automated exposure control; mA and/or kV adjustment per patient size (includes targeted exa ms where dose is matched to clinical indication); or iterative reconstruction.
== END ==
PROVIDERS: PCP Nurse Practitioner Family; Visit Provider Nurse Practitioner Family
DX: M79.604 Pain in right leg (principal); M25.561 Pain in right knee
CPT/HCPCS: 73700

== ENCOUNTER → 2021-11-25 07:51 | Outpatient (CLI) | payer MEDICAID, SELFPAY ==
--- NOTE | 2021-11-25 | DI.CT_ITS ---
Exam(s) CT RENAL COLIC WO EXAM: CT RENAL COLIC WO CLINICAL HISTORY: LT FLANK PAIN, R10.9,H/O KIDNEY STONES, N20.0. TECHNIQUE: Imaging Protocol: Axial computed tomography images with coronal and sagittal reformatted images were created and reviewed. CONTRAST MATERIAL: Noncontrast COMPARISON: CT CT ABDOMEN PELVIS W from 04/07/2021 FINDINGS: ABDOMEN: Lung Bases: Normal where visualized. Liver: Normal attenuation. No measurable mass. Gallbladder and biliary tract: No radiodense calculus or dilation. Pancreas: Normal density, no calcifications or inflammatory process. Spleen: Normal. Kidneys: Normal size, contour and axis. 4-5 tiny stones, 1-2 millimeters, nonobstructing, in the lef t kidney. No obstructive uropathy. No masses seen. Adrenal glands: No masses seen. Abdominal Aorta: Abdominal portion non-dilated. PELVIS: Bladder: Nearly empty Bowel: No obstruction or bowel wall thickening. Peritoneal cavity: No ascites, collection or mesenteric inflammatory response. Bones: Within normal limits. Reproductive: Unremarkable. IMPRESSION: Tiny left renal calculi, nonobstructing. RADIATION DOSE DELIVERED: 1,076.28mGy.cm Total DLP DATA REPOSITORY: All CT scans at this facility are submitted to the National Radiology Data Registry (NRDR) Dose Index Registry (DIR) with the [employer] (A[employer]). RADIATION OPTIMIZATION: All CT scans at this facility use at least one of these dose optimization te chniques: automated exposure control; mA and/or kV adjustment per patient size (includes targeted exa ms where dose is matched to clinical indication); or iterative reconstruction.
== END ==
PROVIDERS: PCP Nurse Practitioner Family; Visit Provider Nurse Practitioner Family
DX: N20.0 Calculus of kidney (principal)
CPT/HCPCS: 74176

== ENCOUNTER → 2021-12-16 12:56 | Outpatient (CLI) | payer MEDICAID, SELFPAY ==
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
== END ==
PROVIDERS: PCP Nurse Practitioner Family; Visit Provider Nurse Practitioner Family
DX: M79.641 Pain in right hand (principal)
CPT/HCPCS: 73130

== ENCOUNTER → 2022-02-02 08:58 | Outpatient (CLI) | payer MEDICAID, SELFPAY ==
--- NOTE | 2022-02-02 08:15 | DI.US_ITS ---
Exam(s) US PELVIS TRANSVAGINAL EXAM: US PELVIS TRANSVAGINAL CLINICAL HISTORY: heavy and painful periods,menorrhagia, r10.2,n92.1 TECHNIQUE: Transabdominal and transvaginal imaging was performed using standard protocol. COMPARISON: No exams were available for comparison FINDINGS: KIDNEYS: Kidneys are symmetric in size. No evidence of renal calculi. No evidence of hydronephrosis. No renal mass or cyst identified. UTERUS: Anteverted. 8.2 x 2.6 x 3.6 cm Endometrium: 2 mm Myometrium: Unremarkable. Cervix: Trace amount of fluid. OVARIES: Right: Cyst or mass: None. Left: Cyst or mass: None. DOPPLER: Color: Symmetric and uniform flow to both ovaries. No hyperemia. CUL-DE-SAC: Free fluid: None. IMPRESSION: 1. Normal-appearing uterus with endometrial stripe within normal limits. 2. Unremarkable bilateral ovaries. DATA REPOSITORY:
== END ==
PROVIDERS: PCP Nurse Practitioner Family; Visit Provider Nurse Practitioner Women's Health
DX: N92.1 Excessive and frequent menstruation with irregular cycle (principal); R10.2 Pelvic and perineal pain
CPT/HCPCS: 76830; 76856

== ENCOUNTER 2022-04-08 16:59 | Emergency (ER) | payer MEDICAID, SELFPAY ==
[2022-04-08 17:02] VITALS: BP 127/77; PULSE 99; RESP 19; TEMP 36.8; O2SAT 98
--- NOTE | 2022-04-08 17:31 | ED.GENADUL_ITS ---
Discharge Plan Disposition Patient Disposition: Home Condition: Stable Discharge Details Clinical Impression: Nausea vomiting and diarrhea Primary Care Provider: Marixa Rosales ED Provider: Sherrill Painter Home Meds and New Rx's Prescriptions: New sucralfate [Carafate] 100 mg/mL suspension 10 ml PO QACHS PRN (Reason: stomach upset) 7 Days Qty: 414 0RF Rx Instructions: Take 10ml by mouth before meals and before bed as needed. Continued cyclobenzaprine 5 mg tablet 5 mg PO QHS PRN trazodone 300 mg tablet 150 mg PO QHS NAC 600 mg tablet PO DIRECTED ondansetron HCl 4 mg tablet 4 mg PO Q6H etonogestrel 68 mg implant 1 implant subdermal ONCE Rx Instructions: as a single dose norethindrone-e.estradiol-iron [Junel FE 1.5/30 (28)] 1.5 mg-30 mcg (21)/75 mg (7) tablet 1 tab PO DAILY Qty: 28 0RF acetaminophen [Tylenol Extra Strength] 500 mg Tablet 500 mg PO PRN PRN ibuprofen [Advil] 200 mg Tablet 400 mg PO Q6H PRN bupropion HCl 150 mg tablet extended release 24 hr 150 mg PO DAILY Label Comments: TAKE 1 TABLET BY MOUTH EVERY DAY prazosin 1 mg capsule 2 mg PO HS Label Comments: TAKE 2 CAPSULES BY MOUTH EVERY NIGHT magnesium oxide 500 mg tablet 500 mg PO DAILY Label Comments: TAKE 1 TABLET BY MOUTH EVERY DAY sertraline 50 mg tablet 50 mg PO DAILY Label Comments: TAKE 1 TABLET BY MOUTH EVERY DAY vitamin B complex [Vitamins B Complex] Capsule 1 cap PO HS Label Comments: TAKE ONE CAPSULE BY MOUTH EVERY NIGHT AT BEDTIME Discharge Instructions Instructions: Acute Nausea and Vomiting (ED) Additional Instructions: At this time you have declined further imaging of your stomach. Please u nderstand I am unable to rule out appendicitis or that it is your gallbladder. Please take the Zofran up to 3 times daily as needed for nausea and vomiting. Take the Carafate liquid as directed. Please take Tylenol or Ibuprofen with food every 4-6 hours as needed for pain and swelling. Please return to the ER if you have any worsening abdominal pain not relieved by Tylenol or ibuprofen or the above measures, fever or any worsening. Follow up with primary care provider in 3-5 days. Return to ED sooner if any worsening or concerns. Increase oral fluids. Eat a bland diet stay away from anything fried spicy fatty or dairy. Advance as tolerated Referrals: Marixa Rosales [Primary Care Provider] - 1 week Medical Decision Making 21-year-old female presents to the ER with a chief complaint of nausea vomiting abdominal pain which began acutely at 4 AM in the morning. She reports she did take some Zofran prior to arrival which did not help. She did have emesis after taking the medication. She also endorses body aches and back pain. She has generalized abdominal pain worse in the right upper quadrant right lower britany drant. 192: Patient declining CT exam she reports feeling much better after the Zofran and Pepcid and fluids. I did discuss the risks and benefits of not doing imaging patient verbalized understanding I did discuss that I am unable to rule out appendicitis or cholecystitis or any other pathophysiology or reasoning for her symptoms she verbalizes understanding. She does have decision-making cap acity. I did discuss her labs with her, she verbalized understanding. Lipase is within normal limits no leukocytosis, absolute neutrophils are slightly elevated at 10.07, glucose is 131, urinalysis shows trace ketones no leukocytes no nitrites no evidence of UTI. Reexamination of abdomen she is still slightly tender with right lower quadrant palpation no longer tender in the right upper quadrant. CT canceled. I did discuss strict return instructions with her we will give her some Zofran to go and encourage her to take Carafate as needed. This text was generated using [employer] dictation system, please disregard any oddities of phrase or misspellings. Lab Data Lab results reviewed: Yes I reviewed the patient's lab results. Labs: Laboratory Tests Range/Units 04/08/22 04/08/22 04/08/22 17:07 17:35 17:35 WBC (4.4-10.8) 10^3/uL 10.73 RBC (3.93-5.22) 10^6/uL 4.57 Hgb (11.2-15.7) g/dL 13.5 Hct (36.0-46.0) % 39.6 MCV (80-95) fL 87 MCH (27.0-33.0) pg 29.5 MCHC (32.0-36.0) % 34.1 RDW (11.7-14.6) % 12.3 Plt Count (130-400) 10^3/uL 235 MPV (8.0-11.0) fL 11.4 H Immature Gran % 0.3 Neutrophils % 93.8 Lymphocytes % 2.1 Monocytes % 3.5 Eosinophils % 0.1 Basophils % 0.2 Nucleated RBC % (0.0-0.3) % 0.0 Absolute Neutrophils (1.2-6.7) 10^3/uL 10.07 H Absolute Lymphocytes (1.2-3.4) 10^3/uL 0.22 L Absolute Monocytes (0.1-0.8) 10^3/uL 0.38 Absolute Eosinophils (0.0-0.7) 10^3/uL 0.01 Absolute Basophils (0.0-0.2) 10^3/uL 0.02 Sodium (136-145) mmol/L 138 Potassium (3.5-5.1) mmol/L 4.0 Chloride (98-107) mmol/L 102 Carbon Dioxide (21.0-32.0) mmol/L 23.8 Anion Gap (3-11) mmol/L 12.2 H BUN (7-18) mg/dL 14 Creatinine (0.55-1.02) mg/dL 1.0 Est GFR (CKD-EPI 2020) (mL/min/1.73m2) 82.20 Glucose (74-106) mg/dL 131 H Calcium (8.5-10.1) mg/dL 9.5 Magnesium (1.8-2.4) mg/dL 1.8 Total Bilirubin (0.2-1.0) mg/dL 0.8 AST (15-37) U/L 20 ALT (14-59) U/L 31 Alkaline Phosphatase (46-116) U/L 68 Total Protein (6.4-8.2) g/dL 8.3 H Albumin (3.4-5.0) g/dL 4.3 Lipase (73-393) U/L 36 Urine Color (Yellow) Yellow Urine Clarity (Clear) Clear Urine pH (5-8) 5.5 Ur Specific [place] (1.005-1.025) >= 1.030 H Urine Protein (Negative) mg/dL Trace H Urine Ketones (Negative) mg/dL Trace H Urine Blood (Negative) Negative Urine Nitrite (Negative) Negative Urine Bilirubin (Negative) Negative Urine Urobilinogen (Up TO 0.2) EU/dL 0.2 Ur Leukocyte Esterase (Negative) Negative Urine RBC (0-2) HPF Negative Urine WBC (0-5) HPF 0-2 Ur Epithelial Cells (Negative) HPF Few Urine Crystals (Negative) HPF Negative Urine Bacteria (Negative) HPF Few Urine Mucus (Negative) Heavy Ur Culture Indicated? No Urine Glucose (Negative) mg/dL Negative HPI General Mode of arrival: ambulatory . Date/Time Provider Initiated Documentation: 04/08/22 17:07 . Limitations to Documentation: no limitations . Information obtained by: patient, RN notes reviewed and old records reviewed . HPI Narrative: 21-year-old female presents to the ER with a chief complaint of nausea vomiting abdominal pain which began acutely at 4 AM in the morning. She reports she did take some Zofran prior to arrival which did not help. She did have emesis after taking the medication. She also endorses body aches and back pain. She has generalized abdominal pain worse in the right upper quadrant right lower quadrant. She denies any fever, diaphoresis. She does endorse slight dysuria. She does have a past medical history of pyelonephritis, gastroenteritis kidney stones, migraine headaches, obesity, anxiety and anemia. She reports last menstrual period was in the last week. Related Data Home Medications Medication Instructions Recorded Confirmed acetaminophen 500 mg tablet 500 mg PO PRN PRN 11/16/18 03/31/22 (Tylenol Extra Strength) bupropion HCl 150 mg 24 hr tablet, 150 mg PO DAILY 08/28/20 03/31/22 extended release magnesium oxide 500 mg tablet 500 mg PO DAILY 02/24/21 03/31/22 prazosin 1 mg capsule 2 mg PO HS 02/24/21 03/31/22 sertraline 50 mg tablet 50 mg PO DAILY 02/24/21 03/31/22 vitamin B complex (Vitamins B 1 cap PO HS 02/24/21 03/31/22 Complex capsule) cyclobenzaprine 5 mg tablet 5 mg PO QHS PRN 03/10/21 03/31/22 ibuprofen 200 mg tablet (Advil) 400 mg PO Q6H PRN 04/07/21 03/31/22 acetylcysteine 600 mg tablet (NAC) mg PO DIRECTED 06/12/21 03/31/22 etonogestrel 68 mg subdermal 1 implant subdermal ONCE 06/12/21 03/31/22 implant ondansetron HCl 4 mg tablet 4 mg PO Q6H 06/12/21 03/31/22 trazodone 300 mg tablet 150 mg PO QHS 06/12/21 03/31/22 norethindrone 1.5 mg-ethinyl 1 tab PO DAILY #28 tabs 04/03/22 estradiol 30 mcg(21)/iron 75 mg(7) tablet ( ()) sucralfate 100 mg/mL oral 10 ml PO QACHS PRN stomach upset 7 04/08/22 suspension (Carafate) days #414 mL Previous Rx's Medication Instructions Recorded norethindrone 1.5 mg-ethinyl 1 tab PO DAILY #28 tabs 04/03/22 estradiol 30 mcg(21)/iron 75 mg(7) tablet ( FE ()) sucralfate 100 mg/mL oral 10 ml PO QACHS PRN stomach upset 7 04/08/22 suspension (Carafate) days #414 mL Allergies Allergy/AdvReac Type Severity Reaction Status Date / Time peanut Allergy Severe Anaphylaxis Verified 03/31/22 09:31 General Stated Complaint: Nausea/Vomit/Diar STANTON: 3 Review of Systems All systems reviewed & are unremarkable except as noted in HPI and below Constitutional Constitutional: Reports body ache(s) Gastrointestinal Gastrointestinal: Reports as per HPI, Reports abdominal pain, Reports diarrhea, Reports nausea and Reports vomiting PFSH All Active Problems (Updated 04/08/22 @ 19:29 by Sherrill Painter NP) Nausea vomiting and diarrhea (Acute) Conductive hearing loss in left ear (Acute) Pyelonephritis (Acute) Acute neck pain (Acute) Back pain, thoracic (Acute) Gastroenteritis (Acute) Presence of subdermal contraceptive implant (Acute 10/20/21) Kidney stones (Chronic) Medical History Anemia Anxiety Decreased hearing of left ear Dizziness Easy bruising Fatigue Hand pain Low back pain Migraine headache with aura Near syncope Obesity Palpitation TMJ dysfunction Surgical History (Updated 06/17/21 @ 09:06 by Margaret Delcid) H/O hand surgery H/O tooth extraction Family History (Updated 06/17/21 @ 09:05 by Margaret Delcid) Maternal Grandmother Diabetes Social History Smoking/Tobacco Use Status: Never Smoking risk assessment performed?: Yes Alcohol Intake: never Drug use: Never Substance use type: does not use and other current occupation: [employer] Duration: 60-90 minutes/day Seatbelt use: sometimes Do you feel safe at home: Yes Do you feel safe in your relationship?: Yes Female Reproductive History Menstrual Age of Menarche: 11 control method: implanted History History 0 Para Hx # Term Pregnancies Multiple births Hx # Pregnancies Ectopic pregnancies AB induced Hx Number of Living Children AB spontaneous Exam Narrative Exam Narrative: Constitutional: Alert and oriented x3. Appears stated age. Obese body habitus. Head: Normocephalic, no trauma. Eyes: Pupils PERRL, Red reflex noted, EOM's intact. Eyelids symmetrical without lesions, discharge, or swelling. ENT: Bilateral TM's WNL, External ear normal to inspection, no mastoid TTP, swelling, or erythema, Nasal turbinates WNL, no nasal discharge. Normal dentition, Posterior pharynx WNL, no exudate. Chest: RRR, Normal S1, S2, distal pulses intact. Resp: Lungs clear to auscultation bilaterally, no wheezes, rales, or rhonchi. Abdomen: Soft, non-distended, Normoactive bowel sounds all 4 quads. Tenderness with palpation right upper quadrant right lower quadrant. Musculoskeletal: Normal gait, 5/5 strength to all four extremities. Skin: No suspicious rashes or lesions. Capillary refill less than 2 sec. Neurologic: Cranial nerves II-XII intact. Alert and oriented x 3. Motor: No deficits noted. Sensory: Intact bilaterally all 4 extremities. Hematologic/Lymphatic: No ecchymosis, no lymphadenopathy. Course Vital Signs Vital signs: Vital Signs Temperature 36.8 C 04/08/22 17:02 Pulse 99 H 04/08/22 17:02 Respiratory Rate 19 04/08/22 17:02 Blood Pressure 127/77 04/08/22 17:02 Pulse Oximetry 98 04/08/22 17:02 Temperature 36.8 C 04/08/22 17:02 Temperature Source Tympanic 04/08/22 17:02 Pulse 99 H 04/08/22 17:02 Respiratory Rate 19 04/08/22 17:02 Respiratory Effort 04/08/22 17:04 Blood Pressure 127/77 04/08/22 17:02 Blood Pressure Position Supine 04/08/22 17:02 Pulse Oximetry 98 04/08/22 17:02 Pain Level 9 04/08/22 17:02
[2022-04-08 17:45] LABS: Bilirubin Negative (Negative); Blood Negative (Negative); Clarity Clear (Clear); Glucose Negative (Negative); Ketones Trace mg/dL (Negative); Leukocyte Esterase Negative (Negative); Nitrite Negative (Negative); Specific Gravity >= 1.030 (1.005-1.025); Urobilinogen 0.2 EU/dL (Up TO 0.2); pH 5.5 (5-8)
[2022-04-08 17:48] LABS: Abs Immature Grans 0.03 10^3/uL (0.0-0.06); Absolute Basophil Count 0.02 10^3/uL (0.0-0.2); Absolute Eosinophil Count 0.01 10^3/uL (0.0-0.7); Absolute Lymphocyte Count 0.22 10^3/uL (1.2-3.4); Absolute Monocyte Count 0.38 10^3/uL (0.1-0.8); Absolute Neutrophil Count 10.07 10^3/uL (1.2-6.7); Basophils % 0.2; Eosinophils % 0.1; HCT 39.6 % (36.0-46.0); HGB 13.5 g/dL (11.2-15.7); Immature Grans % 0.3; Lymphocytes % 2.1; MCH 29.5 pg (27.0-33.0); MCHC 34.1 % (32.0-36.0); MCV 87 fL (80-95); MPV 11.4 fL (8.0-11.0); Monocytes % 3.5; Neutrophils % 93.8; Platelet Count 235 10^3/uL (130-400); RBC 4.57 10^6/uL (3.93-5.22); RDW 12.3 % (11.7-14.6); RDW-SD 38.9 fL; WBC 10.73 10^3/uL (4.4-10.8)
[2022-04-08] MEDS: Normal Saline 1,000 ML 1000 ML IV (17:53)
[2022-04-08] MEDS: Famotidine 20 MG/2 ML VIAL IVP (17:54)
[2022-04-08] MEDS: Metoclopramide 10 MG/2 ML VIAL IVP (17:54)
[2022-04-08 18:02] LABS: Bacteria Few HPF (Negative); Crystals Negative HPF (Negative); Epithelial Cells Few HPF (Negative); Mucus Heavy (Negative); RBC Negative HPF (0-2); WBC 0-2 HPF (0-5)
[2022-04-08 18:03] LABS: C & S Indicated? No
[2022-04-08 18:06] LABS: ALT 31 U/L (14-59); AST 20 U/L (15-37); Albumin 4.3 g/dL (3.4-5.0); Alkaline Phosphatase 68 U/L (46-116); Anion Gap 12.2 mmol/L (3-11); BUN 14 mg/dL (7-18); Bilirubin, Total 0.8 mg/dL (0.2-1.0); CO2 23.8 mmol/L (21.0-32.0); Calcium 9.5 mg/dL (8.5-10.1); Chloride 102 mmol/L (98-107); Glucose 131 mg/dL (74-106); Lipase 36 U/L (73-393); Magnesium 1.8 mg/dL (1.8-2.4); Sodium 138 mmol/L (136-145); Total Protein 8.3 g/dL (6.4-8.2)
[2022-04-08 18:43] VITALS: BP 107/56; PULSE 82; RESP 18; O2SAT 97
[2022-04-08] MEDS: Sucralfate 1 GM TAB PO (19:33)
[2022-04-08 20:04] VITALS: BP 107/56; PULSE 100; RESP 20; TEMP 35.9; O2SAT 99
== END 2022-04-08 20:05 | disposition home or self-care (01) ==
PROVIDERS: Emergency Provider Registered Nurse Emergency; PCP Nurse Practitioner Family
DX: R11.2 Nausea with vomiting, unspecified (principal); R19.7 Diarrhea, unspecified; M54.9 Dorsalgia, unspecified; R10.84 Generalized abdominal pain; R10.11 Right upper quadrant pain; R10.31 Right lower quadrant pain; E66.9 Obesity, unspecified; Z87.442 Personal history of urinary calculi
CPT/HCPCS: 80053; 81025; 83690; 96361; 96374; 96375; 99284; 81003; 81015; 83735; 85025; J2765

== ENCOUNTER 2022-07-11 17:44 | Emergency (ER) | payer MEDICAID, SELFPAY ==
[2022-07-11 17:55] VITALS: BP 116/72; PULSE 67; TEMP 37; O2SAT 99
--- NOTE | 2022-07-11 18:26 | ED.GENADUL_ITS ---
Discharge Plan Disposition Patient Disposition: Home Discharge Details Clinical Impression: TMJ (temporomandibular joint disorder) Primary Care Provider: Marixa Rosales ED Provider: Sherrill Painter Home Meds and New Rx's Prescriptions: New gabapentin 100 mg capsule 100 mg PO QHS PRN (Reason: pain, moderate) Qty: 10 0RF Rx Instructions: Take 1 capsule at bedtime as needed for moderate to severe pain. No Action cyclobenzaprine 5 mg tablet 5 mg PO QHS PRN trazodone 300 mg tablet 150 mg PO QHS Patient Comments: not taking Rx Instructions: not taking NAC 600 mg tablet PO DIRECTED Patient Comments: not taking ondansetron HCl 4 mg tablet 4 mg PO Q6H etonogestrel 68 mg implant 1 implant subdermal ONCE Rx Instructions: as a single dose norethindrone-e.estradiol-iron [ 1.5/30 (28)] 1.5 mg-30 mcg (21)/75 mg (7) tablet 1 tab PO DAILY Qty: 28 0RF Patient Comments: changed by provider acetaminophen [Tylenol Extra Strength] 500 mg Tablet 500 mg PO PRN PRN ibuprofen [Advil] 200 mg Tablet 400 mg PO Q6H PRN Nexplanon 68 mg Implant 1 implant SUBDERMAL DIRECTED bupropion HCl 150 mg tablet extended release 24 hr 150 mg PO DAILY Patient Comments: TAKE 1 TABLET BY MOUTH EVERY DAY not taking prazosin 1 mg capsule 2 mg PO HS Patient Comments: TAKE 2 CAPSULES BY MOUTH EVERY NIGHT not taking magnesium oxide 500 mg tablet 500 mg PO DAILY Patient Comments: TAKE 1 TABLET BY MOUTH EVERY DAY not taking sertraline 50 mg tablet 50 mg PO DAILY Patient Comments: TAKE 1 TABLET BY MOUTH EVERY DAY not taking Rx Instructions: not taking vitamin B complex [Vitamins B Complex] Capsule 1 cap PO HS Patient Comments: TAKE ONE CAPSULE BY MOUTH EVERY NIGHT AT BEDTIME not taking Rx Instructions: not taking Discharge Instructions Instructions: Temporomandibular Disorder (ED) Additional Instructions: Continue to follow-up with specialist as previously scheduled. Take the medication at night as needed. This may make you sleepy. Continue with the muscle relaxer and Tylenol ibuprofen, alternate ice and heat. Eat soft foods. Follow up with primary care provider in 3-5 days. Return to ED sooner if any worsening or concerns. Increase oral fluids. Referrals: Marixa Rosales [Primary Care Provider] - 3 days Medical Decision Making We will trial gabapentin at night. Patient is already taking antidepressants, muscle relaxers trying heat and NSAIDs. HPI General Mode of arrival: ambulatory . Date/Time Provider Initiated Documentation: 07/11/22 17:50 . Limitations to Documentation: no limitations . Information obtained by: patient, RN notes reviewed and old records reviewed . HPI Narrative: 22-year-old female presents to the ER with chief complaint of right jaw pain which has worsened. Patient has had TMJ dysfunction over the last 4 to 5 years. She reports that she has been alternating ice and heat taking Tylenol ibuprofen she does take Flexeril at home with little to no relief. She reports some increased popping and locking of her jaw. She has been in full sentences, she does have some popping of the right TMJ when opening her jaw. No significant other symptoms. No sore throat. Tympanic membrane on the right of her urine is within normal limits. She does have an upcoming appointment in 1 week with a TMJ specialist. Related Data Home Medications Medication Instructions Recorded Confirmed acetaminophen 500 mg tablet 500 mg PO PRN PRN 11/16/18 07/11/22 (Tylenol Extra Strength) bupropion HCl 150 mg 24 hr tablet, 150 mg PO DAILY 08/28/20 03/31/22 extended release magnesium oxide 500 mg tablet 500 mg PO DAILY 02/24/21 03/31/22 prazosin 1 mg capsule 2 mg PO HS 02/24/21 03/31/22 sertraline 50 mg tablet 50 mg PO DAILY 02/24/21 03/31/22 vitamin B complex (Vitamins B 1 cap PO HS 02/24/21 03/31/22 Complex capsule) cyclobenzaprine 5 mg tablet 5 mg PO QHS PRN 03/10/21 07/11/22 ibuprofen 200 mg tablet (Advil) 400 mg PO Q6H PRN 04/07/21 07/11/22 acetylcysteine 600 mg tablet (NAC) mg PO DIRECTED 06/12/21 03/31/22 etonogestrel 68 mg subdermal 1 implant subdermal ONCE 06/12/21 07/11/22 implant ondansetron HCl 4 mg tablet 4 mg PO Q6H 06/12/21 07/11/22 trazodone 300 mg tablet 150 mg PO QHS 06/12/21 03/31/22 norethindrone 1.5 mg-ethinyl 1 tab PO DAILY #28 tabs 04/03/22 estradiol 30 mcg(21)/iron 75 mg(7) tablet ( ()) etonogestrel 68 mg subdermal 1 implant subdermal DIRECTED 07/11/22 07/11/22 implant (Nexplanon) gabapentin 100 mg capsule 100 mg PO QHS PRN pain, moderate 07/11/22 #10 caps Previous Rx's Medication Instructions Recorded norethindrone 1.5 mg-ethinyl 1 tab PO DAILY #28 tabs 04/03/22 estradiol 30 mcg(21)/iron 75 mg(7) tablet ( ()) gabapentin 100 mg capsule 100 mg PO QHS PRN pain, moderate 07/11/22 #10 caps Allergies Allergy/AdvReac Type Severity Reaction Status Date / Time peanut Allergy Severe Anaphylaxis Verified 07/11/22 17:59 General Stated Complaint: DentalOral STANTON: 5 Review of Systems All systems reviewed & are unremarkable except as noted in HPI and below ENT Ears, Nose, Mouth, and Throat: Reports as per HPI and Reports mouth pain PFSH All Active Problems (Updated 07/11/22 @ 18:31 by Sherrill Painter NP) TMJ (temporomandibular joint disorder) (Acute) Conductive hearing loss in left ear (Acute) Pyelonephritis (Acute) Acute neck pain (Acute) Back pain, thoracic (Acute) Gastroenteritis (Acute) Presence of subdermal contraceptive implant (Acute 10/20/21) Kidney stones (Chronic) Medical History Anemia Anxiety Decreased hearing of left ear Dizziness Easy bruising Fatigue Hand pain Low back pain Migraine headache with aura Near syncope Obesity Palpitation TMJ dysfunction Surgical History H/O hand surgery H/O tooth extraction Family History Maternal Grandmother Diabetes Social History Smoking/Tobacco Use Status: Never Smoking risk assessment performed?: Yes Alcohol Intake: never Drug use: Never Substance use type: does not use and other current occupation: [employer] Duration: 60-90 minutes/day Seatbelt use: sometimes Do you feel safe at home: Yes Do you feel safe in your relationship?: Yes Female Reproductive History Menstrual Age of Menarche: 11 control method: implanted History History 0 Para Hx # Term Pregnancies Multiple births Hx # Pregnancies Ectopic pregnancies AB induced Hx Number of Living Children AB spontaneous Exam HENMT Ears: TM's normal bilaterally Mouth: abnormal TMJ (Popping on the right) Course Vital Signs Vital signs: Vital Signs Temperature 37.0 C 07/11/22 17:55 Pulse 67 07/11/22 17:55 Blood Pressure 116/72 07/11/22 17:55 Pulse Oximetry 99 07/11/22 17:55 Temperature 37.0 C 07/11/22 17:55 Temperature Source Skin 07/11/22 17:55 Pulse 67 07/11/22 17:55 Respiratory Effort Normal 07/11/22 18:01 Blood Pressure 116/72 07/11/22 17:55 Blood Pressure Position Sitting 07/11/22 17:55 Pulse Oximetry 99 07/11/22 17:55 Oxygen Delivery Method Room Air 07/11/22 17:55 Oxygen Flow Rate 0 07/11/22 17:55 Pain Level 8 07/11/22 17:55 Comment tried ice, heat, flexeril, tylenol, ibuprofen 07/11/22 17:55
== END 2022-07-11 18:40 | disposition home or self-care (01) ==
PROVIDERS: Emergency Provider Registered Nurse Emergency; PCP Nurse Practitioner Family
DX: M26.601 Right temporomandibular joint disorder, unspecified (principal)
CPT/HCPCS: 99283

== ENCOUNTER 2022-08-14 15:43 | Outpatient (REF) | payer MEDICAID, SELFPAY ==
[2022-08-14 20:54] LABS: Bilirubin Negative (Negative); Blood Small (Negative); Clarity Sl Cloudy (Clear); Glucose Negative (Negative); Ketones Negative (Negative); Leukocyte Esterase Negative (Negative); Nitrite Negative (Negative)
[2022-08-14 21:06] LABS: Bacteria Negative HPF (Negative); C & S Indicated? No; Casts Negative LPF (Negative); Crystals Few Amorphous HPF (Negative); Epithelial Cells Few HPF (Negative); Mucus Negative (Negative); WBC 0-2 HPF (0-5)
== END 2022-08-14 15:44 | disposition home or self-care (01) ==
LOC: NCHCN 15:43
PROVIDERS: PCP Nurse Practitioner Family; Visit Provider Nurse Practitioner Family
DX: R31.9 Hematuria, unspecified (principal)
CPT/HCPCS: 81003; 81015

== ENCOUNTER 2022-09-18 16:21 | Outpatient (REF) | payer MEDICAID, SELFPAY ==
[2022-09-20 12:18] LABS: Chlamydia Result Negative (Negative); GC Result Negative (Negative)
== END 2022-09-18 16:22 | disposition home or self-care (01) ==
LOC: LBN 16:21
PROVIDERS: PCP Nurse Practitioner Family; Visit Provider Advanced Practice Midwife
DX: N89.8 Other specified noninflammatory disorders of vagina (principal); Z20.2 Contact with and (suspected) exposure to infections with a predominantly sexual mode of transmission; Z72.51 High risk heterosexual behavior; Z11.3 Encounter for screening for infections with a predominantly sexual mode of transmission
CPT/HCPCS: 87491; 87591; 87480; 87510; 87660

== ENCOUNTER → 2022-11-05 17:57 | Outpatient (CLI) | payer MEDICAID, SELFPAY ==
--- NOTE | 2022-11-05 16:59 | DI.RAD_ITS ---
Exam(s) XR FOOT LT COMPLETE EXAM: XR FOOT LT COMPLETE CLINICAL HISTORY: PAIN LEFT FOOT M79.672 INJURY RADHA HYPEREXTENDED GREAT TOE. TECHNIQUE: 2D digital imaging was performed of the left foot. Three images were obtained. AP, obli que and lateral views were obtained. COMPARISON: No exams were available for comparison FINDINGS: BONES: No acute fracture is present. No bony destructive lesion is seen. JOINTS: No dislocation present. SOFT TISSUE: Normal. IMPRESSION: Unremarkable radiographs of the left foot. DATA REPOSITORY: RADIATION DOSE DELIVERED:
--- NOTE | 2022-11-05 17:45 | DI.VRAD_ITS ---
PROCEDURE INFORMATION: Exam: XR Left Foot Exam date and time: 11/05/2022 4:57 PM Age: 22 years old Clinical indication: Other: Pain, left foot injury Wednesday, hyperextended great toe TECHNIQUE: Imaging protocol: Radiologic exam of the left foot. Views: 3 or more views. COMPARISON: No relevant prior studies available. FINDINGS: Bones/joints: No acute fracture or subluxation. Soft tissues: Normal. IMPRESSION: No acute bony pathology. Dictated and Authenticated by: Carmen Montoya MD. Ordering:PRINCESS Evans MD
== END ==
PROVIDERS: PCP Nurse Practitioner Family; Visit Provider Physician Assistant Medical
DX: M79.672 Pain in left foot (principal)
CPT/HCPCS: 73630

== ENCOUNTER 2023-04-16 14:48 | Outpatient (CLI) | payer MEDICAID, SELFPAY | END 2023-04-16 14:49 | disposition home or self-care (01) | PROVIDERS: PCP Nurse Practitioner Family; Visit Provider Nurse Practitioner Family | DX: R55 Syncope and collapse (principal) | CPT/HCPCS: 93246 ==

== ENCOUNTER 2023-04-19 05:27 | Outpatient (CLI) | payer MEDICAID, SELFPAY ==
[2023-04-19 09:09] LABS: Abs Immature Grans 0.02 10^3/uL (0.0-0.06); Absolute Basophil Count 0.03 10^3/uL (0.0-0.2); Absolute Eosinophil Count 0.15 10^3/uL (0.0-0.7); Absolute Lymphocyte Count 1.92 10^3/uL (1.2-3.4); Absolute Monocyte Count 0.26 10^3/uL (0.1-0.8); Absolute Neutrophil Count 3.34 10^3/uL (1.2-6.7); Basophils % 0.5; Eosinophils % 2.6; HCT 34.5 % (36.0-46.0); HGB 11.9 g/dL (11.2-15.7); Immature Grans % 0.3; Lymphocytes % 33.6; MCH 29.6 pg (27.0-33.0); MCHC 34.5 % (32.0-36.0); MCV 86 fL (80-95); MPV 10.7 fL (8.0-11.0); Monocytes % 4.5; Neutrophils % 58.5; Platelet Count 230 10^3/uL (130-400); RBC 4.02 10^6/uL (3.93-5.22); RDW 12.1 % (11.7-14.6); RDW-SD 38.3 fL; WBC 5.72 10^3/uL (4.4-10.8)
[2023-04-19 10:16] LABS: Iron 92 ug/dL (50-170); Total Iron Binding Capacity 289 ug/dL (250-450); Transferrin Sat 32 % (15-50)
[2023-04-19 10:31] LABS: ALT 24 U/L (14-59); AST 13 U/L (15-37); Albumin 3.6 g/dL (3.4-5.0); Alkaline Phosphatase 62 U/L (46-116); Anion Gap 8.7 mmol/L (3-11); BUN 15 mg/dL (7-18); Bilirubin, Total 0.5 mg/dL (0.2-1.0); CO2 25.3 mmol/L (21.0-32.0); CREATININE 0.8 mg/dL (0.55-1.02); Calcium 8.9 mg/dL (8.5-10.1); Chloride 106 mmol/L (98-107); Cholesterol 151 mg/dL (<200); Estimated GFR 106.77 (mL/min/1.73m2); Ferritin 68 ng/mL (8-252); Glucose 102 mg/dL (74-106); HDL Cholesterol 65 mg/dL (40-60); Magnesium 1.9 mg/dL (1.8-2.4); Potassium 4.2 mmol/L (3.5-5.1); Sodium 140 mmol/L (136-145); TSH 2.24 uIU/mL (0.36-3.74); Total Protein 7.2 g/dL (6.4-8.2)
[2023-04-19 10:32] LABS: Triglyceride <25 mg/dL (<150)
[2023-04-19 10:42] LABS: LDL CHOLESTEROL 73 mg/dL (<100)
[2023-04-19 11:29] LABS: Hemoglobin A1C 5.2 % (<5.7)
== END 2023-04-19 05:28 | disposition home or self-care (01) ==
LOC: LBO 05:27
PROVIDERS: PCP Nurse Practitioner Family; Visit Provider Nurse Practitioner Family
DX: E66.9 Obesity, unspecified (principal)
CPT/HCPCS: 36415; 80053; 80061; 83721; 82728; 83036; 83540; 83550; 83735; 84443; 85025

== ENCOUNTER → 2023-04-27 01:32 | Outpatient (CLI) | payer MEDICAID, SELFPAY ==
--- NOTE | 2023-04-27 | DI.US_ITS ---
APPROVED REPORT EXAM: Comprehensive 2D, Doppler, and color-flow Echocardiogram Patient Location: Out-Patient Claim Approver: Yudelka Peña RDCS (AE) Indications: Syncope Other Information Study Quality: Adequate Conclusion Normal left ventricular wall thickness and chamber size. Wall motion is normal. Diastolic function is normal. Normal right ventricular size and systolic function Both atria are normal in size There is no structural or hemodynamically significant valvular disease Estimated right ventricular systolic pressure is 19 mm Hg Wall motion Left Ventricle The left ventricle is normal size. The left ventricular systolic function is normal. The left ventric ular ejection fraction is within the normal range. There is normal left ventricular wall thickness. T here is normal LV segmental wall motion. The left ventricular diastolic function is normal. There is no ventricular septal defect visualized. LVEF is 57%. Right Ventricle The right ventricle is normal size. The right ventricular systolic function is normal. Atria The left atrium size is normal. The right atrium size is normal. The interatrial septum is intact wit h no evidence for an atrial septal defect. Aortic Valve The aortic valve is normal in structure. Aortic valve is trileaflet. There is no aortic valvular sten osis. No aortic regurgitation is present. Mitral Valve The mitral valve is normal in structure. No evidence of mitral valve stenosis. Trace mitral regurgita tion. Tricuspid Valve The tricuspid valve is normal in structure. There is no tricuspid valve stenosis. Trace tricuspid reg urgitation. The RVSP is 18.7 mmHg. Pulmonic Valve The pulmonary valve is normal in structure. There is no pulmonic valvular stenosis. Trace pulmonic re gurgitation. Great Vessels The aortic root is normal in size. The ascending aorta is normal in size. Aortic arch is normal in ca liber. IVC is normal in size and collapses >50% with inspiration. Pericardium There is no pericardial effusion. 2D Dimensions IVSD d PLAX 0.77 cm F: 0.6-1.0 Ao Root d 2.64 cm F: 2.7 - 3.3 LVPW d PLAX 0.85 cm F: 0.6 - 1.0 Ao Asc Diam d 3.03 cm F: 2.3 - 3.1 LVID d PLAX 4.89 cm F: 3.8 - 5.2 LVDs 3.43 cm F: 2.2 - 3.5 LV EF Teichholz 57.1 % FS 30.03 % LV EDV (Teich) 112.5 mL LV ESV (Teich) 48.3 mL M-Mode TAPSE 2.46 cm (M/F) >1.7 Auto EF LV EDV A4C 117.3 mL LV EDV A2C 160.4 mL LV EDV BP 138.0 mL LV ESV A4C 54.2 mL LV ESV A2C 68.4 mL LV ESV BP 61.8 mL LVEF(%) A4C 53.8 % LVEF(%) A2C 57.4 % LVEF(%) BP 55.2 % LV SV A4C 63.1 ml LV SV A2C 92.0 ml LV SV BP 76.2 ml LV CO A4C 3.6 L/min LV CO A2C 4.9 L/min LV CO BP 4.2 L/min HR A4C 56.68 BPM HR A2C 53.26 BPM LV EDV Index (BP) LV Strain Long Pk Overal Avg (s) 18.34 LA Volume LA Length A4C 5.6 cm LA Length A2C 5.3 cm LA Area A4C s 19.75 cm2 LA Area A2C s 19.18 cm2 LA Vol A4C A-L 58.91 mL LA Vol A2C A-L 59.37 mL LA Vol Biplane A-L 61.2 mL LA Vol/BSA A4C A-L LA Vol/BSA A2C A-L LA Vol/BSA BP A-L 29.7 mL/m2 LA Vol A4C MOD 53.0 mL LA Vol A2C MOD 56.8 mL LA Vol BP MOD 56.4 mL RA Volume RA Area A4C 15.5 cm2 RA ESV A4C (A-L) 41.4mL RA Vol/BSA A4C A-L RA Length A4C 4.9 cm RA ESV A4C (MOD) 39.9mL LV Diastology MV E' medial 0.108 (>0.07 m/s) MV E Vmax 1.15 (0.4-1.3 m/s) MV E/E' MED 10.69 (<14) MV A Vmax 0.45 (0.4-1.3 m/s) MV E' lateral 0.185 (>0.1 m/s) E/A Ratio 2.6 MV E/E' LAT 6.21 (<14) MV E' Average 0.146 m/s MV E/E'(average) 7.86 Aortic Valve AoV Vmax 1.47 m/s LVOT Vmax 1.18 m/s AoV Peak Grad 8.7 mmHg LVOT Peak Grad 5.6 mmHg AoV Area (Vmax) 2.42 cm2 LVOT VTI 0.260 m AoV VTI 0.329 m LVOT Mean Grad 3.3 mmHg AoV Mean Lenard. 1.07 m/s LVOT SV 78.17 mL AoV Mean Grad 5.1 mmHg LVOT Diam s 1.95 cm AoV Area (VTI) 2.38 cm2 Velocity Ratio 0.80 Mitral Valve MV DT 206 (160-240 msec) MV Vmax TIPS 1.24 m/s MV Mean Grad 1.4 (<2mmHg) MV VTI 0.406 m Pulmonary Valve PV Vmax 0.93 (0.5-1.5 m/s) RVOT Vmax 0.78 m/s PV Peak Grad 3.5 mmHg RVOT Peak Gr. 2.4 mmHg PV Mean Lenard 0.65 m/s RVOT VTI 0.193 m PV Mean Grad 1.9 mmHg RVOT Mean Gr. 1.3 mmHg Tricuspid Valve RA Pressure 3.00 mmHg TR Vmax 1.98 m/s TV S' 0.15 m/s TR Peak Grad 15.6 mmHg RVSP (TR) 18.7 mmHg
== END ==
PROVIDERS: PCP Nurse Practitioner Family; Visit Provider Nurse Practitioner Family
DX: R55 Syncope and collapse (principal)
CPT/HCPCS: 93306

== ENCOUNTER 2024-01-08 01:53 | Emergency (ER) | payer MEDICAID, SELFPAY ==
[2024-01-08 02:00] VITALS: BP 115/78; PULSE 131; RESP 16; TEMP 36.8; O2SAT 115
--- OUTSIDE RECORDS SUMMARY | 2024-01-08 02:01 | XMS_ITS | Encounter Summary ---
Author Organization [facility] Address [address] [place] [address] Care Team Providers Care Cosmetic Manager Name Role Phone Unknown, Provider Primary Care Provider Encounter Details Date Type Department Care Team (Late st Contact Info) Description 12/19/2019 Lab Requisition [facility] Pathology & Laboratory Medicine - [facility] [address] [place] [address] Brooklyn Adamson MD [address] [place], [place] [id number] Encounter for other general examination Social History Tobacco Use Types Packs/Day Years Used Date Smoking Tobacco: Never Assessed Interpersonal Safety Answer Date Record ed Physically Hurt Never 12/07/2019 Verbally Threaten Not on file 12/07/2019 Sex and Gender Information Value Date Recorded Sex Assigned at Not on file Gender Identity Not on file Sexual Orientation Not on file documented as of this encounter Plan of Treatment Not on file documented as of this encounter Procedures Procedure Name Priority Date/Time Associated Diagnosis Comments DO NOT ORDER STANDALONE - BROAD COVID TEST Today 12/19/2019 14:00 EDT Encounter for other general examination COVID-19 TESTING Today 12/19/2019 14:0 0 EDT Encounter for other general examination documented in this encounter Results * DO NOT ORDER STANDALONE - BROAD COVID TEST (12/19/2019 14:00 EDT) COVID-19 rt-PCR Result NEGATIVE Negative 12/21/2019 6:27 EDT [facility] Comment: 2019-novel Coronavirus (2019-nCoV) not detected by the qRT-PCR assay. Consider testing for other respiratory viruses or re-collecting for 2019-nCoV testing. Note: Optimum timing for peak viral levels during infections caused by 2019-nCoV have not been determined. Collection of multiple specimens from the same patient may be necessary to detect the virus. Limitations Positive results are indicative of active infection with SARS-CoV-2 but do not rule out bacterial infection or co-infection with other viruses. The agent detected may not be the definite cause of disease. In addition, detection of viral RNA may not indicate the presence of infectious virus or that SARS-CoV-2 is the causative agent for clinical symptoms. Negative results do not preclude SARS-CoV-2 infection and should not be used as the sole basis for patient management decisions. Negative results must be combined with clinical observations, patient history, and epidemiological information. False negative results may also occur if amplification inhibitors are present in the specimen or if inadequate numbers of organisms are present in the specimen. Optimum specimen types and timing for peak viral levels during infections caused by SARS-CoV-2 have not been fully determined. Collection of multiple specimens (types and time points) from the same patient may be necessary to detect the virus. The test was validated for use with upper respiratory specimens obtained via nasopharyngeal or oropharyngeal swabs in VTM, UTM, M4, M5, M6, saline, and MTM media. The performance of this test has not been established for other specimens. Specimens collected using other FDA recommended Specimen Collection Materials listed in the FDA COVID-19 [employer] communication (June 08, 2019) are processed with the caveat that they were not all validated for use with this test and the result must be interpreted in this context. Furthermore, a false negative results may occur if a specimen is improperly collected, transported or handled. If the virus mutates in the RT-PCR target region, SARS-CoV-2 may not be detected or may be detected less predictably. Inhibitors or other types of interference may produce a false negative result. An interference study evaluating the effect of common cold medications was not performed. This test is not FDA-cleared but its performance characteristics were established by our CLIA-certified, CAP-accredited, high complexity laboratory in accordance with CLIA regulations, [employer] (CAP) guidelines (Jun 01, 2019), and FDA guidance (May 13, 2019). This test is only for use under the Food and Drug Administration's Emergency Use Authorization. Swab NASAL / Unknown 12/19/2019 1 4:00 EDT 12/19/2019 23:00 EDT Brooklyn Adamson MD MICROBIOLOGY - GENERAL ORDERABLES [place], [place] * COVID-19 TESTING (12/19/2019 14:00 EDT) COVID-19 rt-PCR Result NEGATIVE Negative 12/21/2019 7:56 EDT [facility] Comment: 2019-novel Coronavirus (2019-nCoV) not detected by the qRT-PCR assay. Consider testing for other respiratory viruses or re-collecting for 2019-nCoV testing. Note: Optimum timing for peak viral levels during infections caused by 2019-nCoV have not been determined. Collection of multiple specimens from the same patient may be necessary to detect the virus. Limitations Positive results are indicative of active infection with SARS-CoV-2 but do not rule out bacterial infection or co-infection with other viruses. The agent detected may not be the definite cause of disease. In addition, detection of viral RNA may not indicate the presence of infectious virus or that SARS-CoV-2 is the causative agent for clinical symptoms. Negative results do not preclude SARS-CoV-2 infection and should not be used as the sole basis for patient management decisions. Negative results must be combined with clinical observations, patient history, and epidemiological information. False negative results may also occur if amplification inhibitors are present in the specimen or if inadequate numbers of organisms are present in the specimen. Optimum specimen types and timing for peak viral levels during infections caused by SARS-CoV-2 have not been fully determined. Collection of multiple specimens (types and time points) from the same patient may be necessary to detect the virus. The test was validated for use with upper respiratory specimens obtained via nasopharyngeal or oropharyngeal swabs in VTM, UTM, M4, M5, M6, saline, and MTM media. The performance of this test has not been established for other specimens. Specimens collected using other FDA recommended Specimen Collection Materials listed in the FDA COVID-19 [employer] communication (June 08, 2019) are processed with the caveat that they were not all validated for use with this test and the result must be interpreted in this context. Furthermore, a false negative results may occur if a specimen is improperly collected, transported or handled. If the virus mutates in the RT-PCR target region, SARS-CoV-2 may not be detected or may be detected less predictably. Inhibitors or other types of interference may produce a false negative result. An interference study evaluating the effect of common cold medications was not performed. This test is not FDA-cleared but its performance characteristics were established by our CLIA-certified, CAP-accredited, high complexity laboratory in accordance with CLIA regulations, [employer] [place] [employer] (CAP) guidelines (Jun 01, 2019), and FDA guidance (May 13, 2019). This test is only for use under the Food and Drug Administration's Emergency Use Authorization. Performing Lab [facility] 12/21/2019 7:56 EDT [facility] Swab NASAL / Unknown 12/19/2019 1 4:00 EDT 12/19/2019 23:00 EDT Brooklyn Adamson MD MICROBIOLOGY - GENERAL ORDERABLES [facility] [address], [place] [id number] [place] [address] LABORATORY [place], [place] documented in this encounter Visit Diagnoses Diagnosis Encounter for other general examination documented in this encounter Care Teams Cosmetic Manager Relationship Specialty Start Date End Date Unknown, Provider, PCP - General 11/14/19 documented as of this encounter
--- OUTSIDE RECORDS SUMMARY | 2024-01-08 02:01 | XMS_ITS | Encounter Summary ---
Author Organization [facility] [place] [address] Care Team Providers Care Finish Cleaner Name Role Phone Marixa Rosales APRN Primary Care Provider [phone] Encounter Details Date Type Department Care Team (Late st Contact Info) Description 04/30/2020 [place] [address] Angeles Reyes LPN Social History Tobacco Use Types Packs/Day Years Used Date Smoking Tobacco: Never Smokeless Tobacco: Never Sex and Gender Information Value Date Recorded Sex Assigned at Not on file Gender Identity Not on file Sexual Orientation Not on file documented as of this encounter Miscellaneous Notes * Telephone Encounter - Angeles Reyes LPN - 04/30/2020 9:50 AM EST Left msg for patient re: telehealth visit today. Instructed her to call with questions/issues connecting thru my [facility]. documented in this encounter Plan of Treatment Not on file documented as of this encounter Visit Diagnoses Not on filedocumented in this encounter Care Teams Finish Cleaner Relationship Specialty Start Date End Date Marixa Rosales APRN [address] [place] [address] PCP - General Family Medicine 03/22/20 documented as of this encounter
--- OUTSIDE RECORDS SUMMARY | 2024-01-08 02:01 | XMS_ITS | Referral Summary ---
Author Organization [facility] Address [address] [place] [address] Care Team Providers Care Web Systems Developer Name Role Phone Unknown, Provider Primary Care Provider Social History Tobacco Use Types Packs/Day Years Used Date Smoking Tobacco: Never Assessed Interpersonal Safety Answer Date Record ed Physically Hurt Never 12/07/2019 Verbally Threaten Not on file 12/07/2019 Sex and Gender Information Value Date Recorded Sex Assigned at Not on file Gender Identity Not on file Sexual Orientation Not on file Plan of Treatment Not on file Care Teams Web Systems Developer Relationship Specialty Start Date End Date Unknown, Provider, PCP - General 11/14/19
--- OUTSIDE RECORDS SUMMARY | 2024-01-08 02:01 | XMS_ITS | Encounter Summary ---
Author Organization [facility] [place] [address] Care Team Providers Care Case Management Associate Name Role Phone Marixa Rosales VERA Primary Care Provider [phone] Encounter Details Date Type Department Care Team (Late st Contact Info) Description 05/23/2020 2:00 PM EST Office [place] [address] Nidia Ramos DPM [facility] [place] [address] Onychocryptosis; Pain in toe of right foot Social History Tobacco Use Types Packs/Day Years Used Date Smoking Tobacco: Never Smokeless Tobacco: Never Sex and Gender Information Value Date Recorded Sex Assigned at Not on file Gender Identity Not on file Sexual Orientation Not on file documented as of this encounter Progress Notes * Nidia Ramos DPM - 05/23/2020 2:00 PM EST Outpatient [facility] Note Name: Kaykay Majano Age:20 y.o. MR#: [id number] Date of Service: 05/23/2020 SUBJECTIVE: Kaykay Majano is a 20 y.o. female with history of chronic ingrown nails and paronychia who returns to clinic today for chemical matrixectomy of right great toe. Patient last seen approximately 1 month ago for chronic paronychia of both great toes which resolved with treatment. No redness, swelling, pus, odors, or other changes today. Relates history of ingrown nail discomfort. Expresses interest in long-term options. Also relates slipping on ice with bruising of right foot. Denies any pain. Relates slight improvement. No other sites of injury or trauma. No other pedal complaints. No constitutional symptoms. SH: works at nursing facility Allergies Allergen Reactions ??? Legumes Anaphylaxis Allergic to peanuts swelling , throat closure No past medical history on file. Social History Socioeconomic History ??? Marital status: Single Spouse name: Not on file ??? Number of children: Not on file ??? Years of education: Not on file ??? Highest education level: Not on file Occupational History ??? Not on file Tobacco Use ??? Smoking status: Never Smoker ??? Smokeless tobacco: Never Used Substance and Sexual Activity ??? Alcohol use: Not on file ??? Drug use: Not on file ??? Sexual activity: Not on file Other Topics Concern ??? Not on file Social History Narrative ??? Not on file Social Determinants of Health Financial Resource Strain: ??? Difficulty of Paying Living Expenses: Not on file Food Insecurity: ??? Worried About Running Out of Food in the Last Year: Not on file ??? Ran Out of Food in the Last Year: Not on file Transportation Needs: ??? Lack of Transportation (Medical): Not on file ??? Lack of Transportation (Non-Medical): Not on file Physical Activity: ??? Days of Exercise per Week: Not on file ??? Minutes of Exercise per Session: Not on file No family history on file. Current Outpatient Medications on File Prior to Visit Medication Sig Dispense Refill ??? citalopram (CeleXA) 20 mg Tablet ??? etonogestreL (NEXPLANON) 68 mg Implant by Subdermal route Continuous (Device). Expected removaldate 09/29/2021 ??? clobetasoL (TEMOVATE) 0.05 % Cream APPLY EXTERNALLY TO GREAT TOES TWICE DAILY FOR 2 WEEKS No current facility-administered medications on file prior to visit. ROS: MSK: + Chronic pain in toe SKIN: + Ingrown nail The remainder of 10 ROS were reviewed and negative. OBJECTIVE: GEN: Appears well. NAD. DERM: Left hallux nail plate absent with no signs of infection. Right hallux lateral margin incurvated with no signs of acute infection. No malodor. No open wounds. No erythema. No purulence. No fluctuance. No proximal streaking. VASC: Pedal pulses palpable. No rest pain. No color changes. No claudication. NEURO: Sensation intact to light touch no deficits. MSK: Tenderness on exam at affected site right hallux. No other sites of palpable pain. Muscle strength 5/5 all groups. Active ROM noted of ankle/pedal joints. ASSESSMENT: Chronic recurrent ingrown nail right hallux PLAN: Patient evaluated with condition and treatment options for management discussed at length as well as pros/cons of each. No guarantees given or implied. Risks, benefits, and possible complications of procedure reviewed at length. Patient reiterated understanding and opted to proceed with procedure with chemical matrixectomy right hallux lateral border with partial nail avulsion and phenol application. Advised monitoring left hallux for any recurrence. Prevention reviewed. Following written consent for procedure and alcohol swab application, injected 1 cc of 2% lidocaineplain to right hallux. Betadine scrub performed. Toe tourniquet applied. Using sterile technique lateral border of right hallux avulsed to nail root with 3 applications of 30 seconds each of phenol 89% as per nail kegger's instructions. Alcohol flush performed. Toe tourniquet removed. Covered withbacitracin, gauze, Coban. Patient tolerated well and without complications. Postprocedure instructions reviewed at length. Instructed patient to avoid submerging foot. Signs and symptoms of infection reviewed at length. Advised patient to seek prior medical care and contact clinic if any worsening. Explained may need antibiotic if site becomes infected. Prevention reviewed. Answered all questions. Patient verbalized understanding of all instructions. FOLLOW UP: 1 week telephone visit or sooner if any concerns or changes arise documented in this encounter Plan of Treatment Not on file documented as of this encounter Visit Diagnoses Diagnosis Onychocryptosis Ingrowing nail Pain in toe of right foot Pain in limb documented in this encounter Care Teams Case Management Associate Relationship Specialty Start Date End Date Marixa Rosales APRN [address] [place] [address] PCP - General Family Medicine 03/22/20 documented as of this encounter
--- OUTSIDE RECORDS SUMMARY | 2024-01-08 02:01 | XMS_ITS | Encounter Summary ---
Author Organization [facility] Address [facility] [place] [address] Care Team Providers Care Tabular Typist Name Role Phone Marixa Rosales VERA Primary Care Provider [phone] Encounter Details Date Type Department Care Team (Late st Contact Info) Description 05/30/2020 2:15 PM EDT TH Visit (TeleHealth) [place] [id number] Nidia Ramos DPM [facility] [place] [address] Onychocryptosis Social History Tobacco Use Types Packs/Day Years Used Date Smoking Tobacco: Never Smokeless Tobacco: Never Sex and Gender Information Value Date Recorded Sex Assigned at Not on file Gender Identity Not on file Sexual Orientation Not on file documented as of this encounter Progress Notes * Nidia Ramos DPM - 05/30/2020 2:15 PM EDT Outpatient Foot Care Clinic Note Name: Kaykay Majano Age:20 y.o. MR#: [id number] Date of Service: 05/30/2020 SUBJECTIVE: Kaykay Majano is a 20 y.o. female with history of chronic ingrown nails status postchemical matrixectomy who was evaluated by telephone phone visit today. Patient reports significantimprovement with treatment. Denies any pain or discomfort. Denies any drainage or odors. Relates toe feeling good with no new concerns. No other pedal complaints. SH: works at nursing facility Allergies Allergen [...] Strain: ??? Difficulty of Paying Living Expenses: Food Insecurity: ??? Worried About Running Out of Food in the Last Year: ??? Ran Out of Food in the Last Year: Transportation Needs: ??? Lack of Transportation (Medical): ??? Lack of Transportation (Non-Medical): Physical Activity: ??? Days of Exercise per Week: ??? Minutes of Exercise per Session: Stress: ??? Feeling of Stress : Social Connections: ??? Frequency of Communication with Friends and Family: ??? Frequency of Social Gatherings with Friends and Family: ??? Attends Jainism Services: ??? Active Member of Clubs or Organizations: ??? Attends Club or Organization Meetings: ??? Marital Status: Intimate Partner Violence: ??? Fear of Current or Ex-Partner: ??? Emotionally Abused: ??? Physically Abused: ??? Sexually Abused: No family history on file. Current Outpatient Medications on File Prior to Visit Medication Sig Dispense Refill ??? citalopram (CeleXA) 20 mg Tablet ??? clobetasoL (TEMOVATE) 0.05 % Cream APPLY EXTERNALLY TO GREAT TOES TWICE DAILY FOR 2 WEEKS ??? etonogestreL (NEXPLANON) 68 mg Implant by Subdermal route Continuous (Device). Expected removaldate 09/29/2021 No current facility-administered medications on file prior to visit. ROS: MSK: + Chronic pain in toe--improved The remainder of 10 ROS were reviewed and negative. OBJECTIVE: Deferred ASSESSMENT: Chronic recurrent ingrown nail right hallux status post chemical matrixectomy PLAN: Patient evaluated via telephone visit today. Confirmed patient by full name and date of . At this time right toe has healed well with no reported complications or discomfort. Advised patient to discontinue dressing and soaking. Monitor for any worsening and if such changes occur contact clinic. Discussed left great toenail at risk for ingrown nail infection. Continued prevention. If any worsening seek prompt medical care. Answered all questions. Patient verbalized understanding of all instructions. Patient verbally consents to this telephone visit and understands that this visit may be billed, similar to a clinic office visit. I provided care to the patient today via telephone call. The total time associated with this visit was 5 minutes. FOLLOW UP: PRN documented in this encounter Plan of Treatment Not on file documented as of this encounter Visit Diagnoses Diagnosis Onychocryptosis Ingrowing nail documented in this encounter Care Teams Tabular Typist Relationship Specialty Start Date End Date Marixa Rosales APRN [address] [place] [address] PCP - General Family Medicine 03/22/20 documented as of this encounter
--- OUTSIDE RECORDS SUMMARY | 2024-01-08 02:01 | XMS_ITS | Encounter Summary ---
Author Organization [facility] [place] [address] Care Team Providers Care Trial Court Judge Name Role Phone Marixa Rosales APRN Primary Care Provider [phone] Reason for Visit * Reason Comments Ingrown Toenail * Consultation (Routine) - Closed Specialty Diagnoses / Procedures Referred By Abdoulaye light Referred To Contact Podiatry Diagnoses Cellulitis of right toe Marixa Rosales APRN [address] [place] [address] [facility] [place] [address] Referral ID Status Reason Start Date Expiration Date V isits Requested Visits Authorized [id number] Closed Consult, [facility] PCP Updated and/or Approved 03/18/2020 03/18/2021 6 6 Encounter Details Date Type Department Care Team (Late st Contact Info) Description 04/03/2020 9:30 AM EST [place] [address] Nidia Ramos DPM [facility] [place] [address] Paronychia of great toe, left; Paronychia of great toe, right; Onychocryptosis Social History Tobacco Use Types Packs/Day Years Used Date Smoking Tobacco: Never Smokeless Tobacco: Never Sex and Gender Information Value Date Recorded Sex Assigned at Not on file Gender Identity Not on file Sexual Orientation Not on file documented as of this encounter Progress Notes * Nidia Ramos DPM - 04/03/2020 9:30 AM EST Outpatient Foot Care Clinic Note Name: Kaykay Majano Age:19 y.o. MR#: [id number] Date of Service: 04/03/2020 SUBJECTIVE: Kaykay Majano is a 19 y.o. female with history of chronic paronychia affecting bothgreat toes since May 2019 who presents to the clinic today for evaluation. Accompanied by mother.Patient referred from [facility] and has previously undergone wedge resection/total nail avulsions (x1 left great toe, x2 right great toe) as well as courses of Keflex and Clindamycin with reported minimal improvement. Rates pain today in feet as 11/22. Patient relates applying Clobetasol 0.05% BID and soaking with application of topical antibiotic. No other pedal complaints. No constitutional symptoms reported. 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 Social History Socioeconomic History ??? Marital status: Single Spouse name: Not on file ??? Number of children: Not on file ??? Years of education: Not on file ??? Highest education level: Not on file Occupational History ??? Not on file Social Needs ??? Financial resource strain: Not on file ??? Food insecurity Worry: Not on file Inability: Not on file ??? Transportation needs Medical: Not on file Non-medical: Not on file Tobacco Use ??? Smoking status: Not on file Substance and Sexual Activity ??? Alcohol use: Not on file ??? Drug use: Not on file ??? Sexual activity: Not on file Lifestyle ??? Physical activity Days per week: Not on file Minutes per session: Not on file ??? Stress: Not on file Relationships ??? Social connections Talks on phone: Not on file Gets together: Not on file Attends islam service: Not on file Active member of club or organization: Not on file Attends meetings of clubs or organizations: Not on file Relationship status: Not on file ??? Intimate partner violence Fear of current or ex partner: Not on file Emotionally abused: Not on file Physically abused: Not on file Forced sexual activity: Not on file Other Topics Concern ??? Not on file Social History Narrative ??? Not on file No family history on file. No current outpatient medications on file prior to visit. No current facility-administered medications on file prior to visit. ROS: MSK: +toe pain SKIN: +redness/swelling of toes The remainder of 10 ROS were reviewed and negative. OBJECTIVE: GEN: Patient is in no acute distress and AAOX3 DERM: Skin supple and dry with no open lesions or macerations appreciated. Hair growth present. Temperature gradient within normal limits. No apparent increased warmth. Bilateral hallux nails lateralmargins incurvated and inflamed with local erythema consistent with chronic paronychia. Nail plate mildly dystrophic. Slight serous drainage. Upon removal, no underlying abcess. No purulence expressed. No malodor. VASC: Dorsalis pedis + 2/4 bilaterally and posterior tibial pulse + 2/4 bilaterally. Capillary refill 3 seconds to all digits. Mild edema, left greater than right hallux. No claudication, no rest pain. NEURO: Epicritic sensation intact to light touch bilaterally. MSK: + pain on palpation bilateral hallux affected sites. No soft tissue masses appreciated. Musclestrength 5/5 all groups. Active painfree ROM noted of pedal and ankle joints bilaterally. 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 Risks/benefits/possible complications of partial nail avulsion/drainage procedure reviewed, including worsening infection and need for further intervention. Answered all questions. Patient verbalized understanding and agreed to move forward with procedure today. Following verbal consent and alcohol swab application, injected bilateral hallux with 1 cc of 2% lidocaine plain each. Betadine scrub performed. Using sterile technique, partial nail avulsion with drainage performed bilateral hallux at site of ingrown nails. Ingrown nails removed to root. Sites copiously flushed with sterile saline and Vashe wound cleanser for antimicrobial properties. Wound cultures obtained. No active bleeding. Covered with Iodosorb, gauze, Coban. Patient tolerated procedure well and without complications. Discussed may begin oral abx pending culture results. She will be contacted directly. Postprocedure wound care instructions reviewed at length. Sample Iodosorb dispensed with proper usereviewed. Discussed chemical matrixectomy procedure once infection resolves in future for more intermediate relief. For now continue with dressing changes, soaking and monitoring for any worsening. Reviewed s/s of infection and advised patient to seek prompt medical care if such concerns arise. Note provided for work. Answered all questions. Patient verbalized understanding of all instructions. FOLLOW UP: 2-3 weeks telephone visit, 6 weeks in clinic possible procedure or sooner if any concerns or changes arise Nidia Ramos DPM Pharmacy Customer Care Specialist, [facility] documented in this encounter Plan of Treatment Not on file documented as of this encounter Procedures Procedure Name Priority Date/Time Associated Diagnosis Comments ANAEROBIC CULTURE Routine 04/03/2020 11: 37 AM EST Paronychia of great toe, left HC WOUND/ABSCESS CX Routine 04/03/2020 1 1:37 AM EST Paronychia of great toe, left ABSCESS/WOUND ASPIRATE CULTURE Routine 04/03/2020 11:37 AM EST Paronychia of great toe, left ANAEROBIC CULTURE Routine 04/03/2020 11: 34 AM EST Paronychia of great toe, right HC WOUND/ABSCESS CX Routine 04/03/2020 1 1:34 AM EST Paronychia of great toe, right ABSCESS/WOUND ASPIRATE CULTURE Routine 04/03/2020 11:34 AM EST Paronychia of great toe, right documented in this encounter Results * Anaerobic Culture (04/03/2020 11:37 AM EST) Anaerobic Culture No anaerobic organisms isolated [facility] Fluid specimen (specimen) TOE STRUCTURE / Unknown 04/03/2020 11:37 AM EST 04/03/2020 11:37 AM EST Comment:RIGHT Narrative Resulting Agency Comment Spec In Lab Nidia Ramos DPM MICROBIOLOGY - GENER AL ORDERAB[place] [address] * (ABNORMAL) Abscess/Wound Aspirate Culture (04/03/2020 11:37 AM EST) Abscess/Wound Aspirate Culture Rare Staphylococcus aureus Rare Beta Hemolytic Streptococci, Group B Rare normal cutaneous teresa (A) [facility] Gram Stain Few Neutrophils seen Few Gram Positive Cocci seen (A) [facility] Organism Staphylococcus aureus(A) [facility] Organism Beta Hemolytic Streptococci, Group B(A) [facility] Organism Gram Positive Cocci(A) [facility] Fluid specimen (specimen) TOE STRUCTURE / Unknown 04/03/2020 11:37 AM EST 04/03/2020 11:37 AM EST Comment:RIGHT TOE HALLUX Narrative Resulting Agency Comment Spec In Lab Organism Antibiotic Method Susceptibility Staphylococcus aureus Cefazolin VITEK 2 METHOD Sensitive Staphylococcus aureus Ceftriaxone VITEK 2 METHOD Sensitive Staphylococcus aureus Clindamycin VITEK 2 METHOD Sensitive Staphylococcus aureus Erythromycin VITEK 2 METHOD Sensitive Staphylococcus aureus Gentamicin VITEK 2 METHOD Sensitive Comment:Gentamicin i s not appropriate for [place]-therapy. Staphylococcus aureus Oxacillin VITEK 2 METHOD Sensitive Comment: Penicillin resistant, Nafcillin susceptible Staphylococci are resistant to B-lactamase labile Penicillins including Ampicillin and Piperacillin, but susceptible to B-lactamase mica Penicillins (Nafcillin), B-lactamase inhibitor combinations, first and second generation Cephalosporins including Cefazolin, and to Cefepime and Meropenem. Staphylococcus aureus Trimethoprim/Sulfa VITEK 2 METHO D Sensitive Staphylococcus aureus Tetracycline VITEK 2 METHOD Sensitive Staphylococcus aureus Vancomycin VITEK 2 METHOD Sensitive Nidia Ramos DPM MICROBIOLOGY - [place] [address] * (ABNORMAL) Anaerobic Culture (04/03/2020 11:34 AM EST) Anaerobic Culture Few Prevotella species(A) [facility] Organism Prevotella species(A) [facility] Fluid specimen (specimen) TOE STRUCTURE / Unknown 04/03/2020 11:34 AM EST 04/03/2020 11:34 AM EST Comment:LEFT TOE HOLLUX Narrative Resulting Agency Comment Spec In Lab Nidia Ramos DPM MICROBIOLOGY - GENER AL ORDERABLES Performing Organization Address City/[facility]/ZIP Co de Phone Number [facility] [place] [address] * (ABNORMAL) Abscess/Wound Aspirate Culture (04/03/2020 11:34 AM EST) Abscess/Wound Aspirate Culture Few Staphylococcus aureus Few Beta Hemolytic Streptococci, Group B Rare normal cutaneous teresa (A) [facility] Gram Stain No Neutrophils seen. Rare Gram Positive Cocci seen (A) [facility] Organism Staphylococcus aureus(A) [facility] Organism Beta Hemolytic Streptococci, Group B(A) [facility] Organism Gram Positive Cocci(A) [facility] Fluid specimen (specimen) TOE STRUCTURE / Unknown 04/03/2020 11:34 AM EST 04/03/2020 11:34 AM EST Comment:LEFT Narrative Resulting Agency Comment Spec In Lab Organism Antibiotic Method Susceptibility Staphylococcus aureus Cefazolin VITEK 2 METHOD Sensitive Staphylococcus aureus Ceftriaxone VITEK 2 METHOD Sensitive Staphylococcus aureus Clindamycin VITEK 2 METHOD Sensitive Staphylococcus aureus Erythromycin VITEK 2 METHOD Sensitive Staphylococcus aureus Gentamicin VITEK 2 METHOD Sensitive Comment:Gentamicin i s not appropriate for [place]-therapy. Staphylococcus aureus Oxacillin VITEK 2 METHOD Sensitive Comment: Penicillin resistant, Nafcillin susceptible Staphylococci are resistant to B-lactamase labile Penicillins including Ampicillin and Piperacillin, but susceptible to B-lactamase mica Penicillins (Nafcillin), B-lactamase inhibitor combinations, first and second generation Cephalosporins including Cefazolin, and to Cefepime and Meropenem. Staphylococcus aureus Trimethoprim/Sulfa VITEK 2 METHO D Sensitive Staphylococcus aureus Tetracycline VITEK 2 METHOD Sensitive Staphylococcus aureus Vancomycin VITEK 2 METHOD Sensitive Nidia Ramos DPM MICROBIOLOGY - GENER AL ORDERABLES Performing Organization Address City/[facility]/ZIP Co de Phone Number [facility] [place] [address] documented in this encounter Visit Diagnoses Diagnosis Paronychia of great toe, left Onychia and paronychia of toe Paronychia of great toe, right Onychia and paronychia of toe Onychocryptosis Ingrowing nail documented in this encounter Care Teams Trial Court Judge Relationship Specialty Start Date End Date Marixa Rosales APRN [address] [place] [address] PCP - General Family Medicine 03/22/20 documented as of this encounter
--- OUTSIDE RECORDS SUMMARY | 2024-01-08 02:01 | XMS_ITS | Clinical Summary ---
Author Organization [facility] Address [facility] [place] [address] Care Team Providers Care Rn Rehabilitation Name Role Phone Bobby Marixa Vijay GAMEZ Primary Care Provider [phone] Allergies Active Allergy Reactions Criticality Noted Date Comments Legumes Anaphylaxis High 04/03/2020 Allergic to peanuts swelling , throat closure Medications Medication Sig Dispensed Refills Start Date End Date Status citalopram (CeleXA) 20 mg Tablet 02/13/2020 Active clobetasoL (TEMOVATE) 0.05 % Cream APPLY EXTERNALLY TO GREAT TOES TWICE DAILY FOR 2 WEEKS 03/18/2020 Active etonogestreL (NEXPLANON) 68 mg Implant by Subdermal route Continuous (Device). Expected removal date 09/29/2021 Active Social History Tobacco Use Types Packs/Day Years Used Date Smoking Tobacco: Never Smokeless Tobacco: Never Sex and Gender Information Value Date Recorded Sex Assigned at Not on file Gender Identity Not on file Sexual Orientation Not on file Plan of Treatment Health Maintenance Due Date Last Done Comments Chlamydia Screening 05/17/2015 HPV vaccine (1 - 3-dose series) 05/17/2015 HIV screen 2018 Hepatitis C Screening 2018 Hepatitis B vaccine (0-59 yrs) (1) 05/17/2019 Tetanus/Diphtheria/Pertussis Vaccines (1 - Tdap) 05/16 PAP Smear 2021 Covid-19 Vaccine (1 - 2022-24 season) 2023 Influenza (Flu) vaccine (1 o f 1 - Influenza standard series) 11/14/2023 Care Teams Rn Rehabilitation Relationship Specialty Start Date End Date Marixa Rosales APRN [address] [place], [place] [id number] PCP - General Family Medicine 03/22/20
--- OUTSIDE RECORDS SUMMARY | 2024-01-08 02:01 | XMS_ITS | Encounter Summary ---
Author Organization [facility] Address [address] [place] [address] Care Team Providers Care Supervisor Plastic Sheets Name Role Phone Unknown, Provider Primary Care Provider Encounter Details Date Type Department Care Team (Late st Contact Info) Description 05/20/2021 Lab Requisition [facility] Pathology & Laboratory Medicine - [facility] [address] [place] [address] Outr Resulting Lab, Provider Social History Tobacco Use Types Packs/Day [...] Procedure Name Priority Date/Time Associated Diagnosis Comments CHLAMYDIA/N. GONORRHOEAE AMPLIFIED NUCLEIC ACID, THINPREP Routine 05/20/2021 13:30 EST documented in this encounter Results * CHLAMYDIA/N. GONORRHOEAE AMPLIFIED RNA, THINPREP (05/20/2021 13:30 EST) Neisseria gonorrhoeae Result Negative Negative 05/21/2021 14:36 EST [facility] Chlamydia trachomatis Result Negative Negative 05/21/2021 14:36 EST [facility] Papanicolaou smear specimen (specimen) CERVIX UTERI STRUCTURE / Unknown 05/20/2021 13:30 EST 05/21/2021 8:30 EST Provider Outr Resulting Lab MICROBIOLOGY - GENERAL ORDERABLES [facility] [address] [place] [address] documented in this encounter Visit Diagnoses Not on filedocumented in this encounter Care Teams Supervisor Plastic Sheets Relationship Specialty Start Date End Date Unknown, Provider, PCP - General 11/14/19 documented as of this encounter
--- OUTSIDE RECORDS SUMMARY | 2024-01-08 02:01 | XMS_ITS | Encounter Summary ---
Author Organization [facility] Address [address] [place] [address] Care Team Providers Care Supervisor Stave Finishing Name Role Phone Unknown, Provider Primary Care Provider Encounter Details Date Type Department Care Team (Late st Contact Info) Description 04/16/2021 Lab Requisition [facility] Pathology & Laboratory Medicine - [facility] [address] [place] [address] Outr Resulting Lab, Provider Social History Tobacco [...] Associated Diagnosis Comments CHLAMYDIA/N. GONORRHOEAE AMPLIFIED NUCLEIC ACID Routine 04/15/2021 15:00 EST documented in this encounter Results * CHLAMYDIA/N. GONORRHOEAE AMPLIFIED RNA (04/15/2021 15:00 EST) Neisseria gonorrhoeae Result Negative Negative 04/17/2021 13:48 EST [facility] Chlamydia trachomatis Result Negative Negative 04/17/2021 13:48 EST [facility] Swab ENTIRE WALL OF CERVIX / Unknown 04/15/2021 15:00 EST 04/16/2021 16:04 EST Provider Outr Resulting Lab MICROBIOLOGY - GENERAL ORDERABLES [facility] [address] [place] [address] documented in this encounter Visit Diagnoses Not on filedocumented in this encounter Care Teams Supervisor Stave Finishing Relationship Specialty Start Date End Date Unknown, Provider, PCP - General 11/14/19 documented as of this encounter
--- OUTSIDE RECORDS SUMMARY | 2024-01-08 02:01 | XMS_ITS | Encounter Summary ---
Author Organization [facility] [place] [address] Care Team Providers Care Guest Relations Coordinator Name Role Phone Marixa Rosales APRN Primary Care Provider [phone] Encounter Details Date Type Department Care Team (Late st Contact Info) Description 04/30/2020 [place] [address] Nidia Ramos DPM [facility] [place] [address] Social History Tobacco Use Types Packs/Day Years [...] on filedocumented in this encounter Care Teams Guest Relations Coordinator Relationship Specialty Start Date End Date Marixa oRsales APRN [address] [place] [address] PCP - General Family Medicine 03/22/20 documented as of this encounter
--- OUTSIDE RECORDS SUMMARY | 2024-01-08 02:01 | XMS_ITS | Encounter Summary ---
Author Organization [facility] Address [address] [place] [address] Care Team Providers Care Concessionist Name Role Phone Unknown, Provider Primary Care Provider [phone] Encounter Details Date Type Department Care Team (Late st Contact Info) Description 01/10/2020 Lab Requisition [facility] Pathology & Laboratory Medicine - [facility] [address] [place] [address] Outr Resulting Lab, Provider Social History Tobacco [...] Diagnosis Comments CHLAMYDIA/N. GONORRHOEAE AMPLIFIED NUCLEIC ACID After X-Ray 01/09/2020 13:15 EDT documented in this encounter Results * CHLAMYDIA/N. GONORRHOEAE AMPLIFIED RNA (01/09/2020 13:15 EDT) Neisseria gonorrhoeae Result Negative Negative 02/29/2020 15:03 EST [facility] Chlamydia trachomatis Result Negative Negative 02/29/2020 15:03 EST [facility] [place] 01/09/2020 13:1 5 EDT 02/29/2020 7:08 EST Provider Outr Resulting Lab MICROBIOLOGY - GENERAL ORDERABLES [facility] [address] [place] [address] documented in this encounter Visit Diagnoses Not on filedocumented in this encounter Care Teams Concessionist Relationship Specialty Start Date End Date Unknown, Provider, PCP - General 11/14/19 documented as of this encounter
--- OUTSIDE RECORDS SUMMARY | 2024-01-08 02:01 | XMS_ITS | Clinical Summary ---
Author Organization [facility] Address [address] [place] [address] Care Team Providers Care Network Infrastructure Architect Name Role Phone Unknown, Provider Primary Care [...] Health Maintenance Due Date Last Done Comments Hepatitis C Screen 2000 Hepatitis B Vaccine (1 of 3 - 19+ 3-dose series) 05/16 COVID-19 Vaccine ( season) 2022 Care Teams Network Infrastructure Architect Relationship Specialty Start Date End Date Unknown, Provider, PCP - General 11/14/19
--- OUTSIDE RECORDS SUMMARY | 2024-01-08 02:01 | XMS_ITS | Encounter Summary ---
Author Organization [facility] Address [address] [place] [address] Care Team Providers Care Senior Occupational Therapist Name Role Phone Unknown, Provider Primary Care Provider Encounter Details Date Type Department Care Team (Late st Contact Info) Description 05/21/2021 Lab Requisition [facility] Pathology & Laboratory Medicine - [facility] [address] [place] [address] Hoa Roche, BINDER LOCKSTITCH [address] [id number] Encounter for other general examination Social History [...] Procedure Name Priority Date/Time Associated Diagnosis Comments PAP TEST Today 05/20/2021 13:30 EST Encounter for other general examination documented in this encounter Results * PAP TEST (05/20/2021 13:30 EST) Specimens A. Cervix and/or Endocervix , ThinPrep Imaging System with Manual Evaluation 05/26/2021 13:36 [facility] Specimen Adequacy Satisfactory for Evaluation - transformation zone component absent 05/26/2021 13:36 [facility] General Categorization Negative for intraepithelial lesion or malignancy 05/26/2021 13:36 [facility] Descriptive Diagnosis 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 05/26/2021 13:36 [facility] Attestation . 05/26/2021 13:36 EDT [facility] at 1336 Clinical History See below 05/27/19 13:36 EDT [facility] Performing Lab [facility] 05/26/2021 13:36 EDT [facility] Scanned Images 05/26/2021 13:36 EDT [facility] Papanicolaou smear specimen (specimen) CERVIX UTERI STRUCTURE / Unknown 05/20/2021 13:30 EST 05/21/2021 15:20 EST Hoa Roche APRN PATHOLOGY ORDERAB LES [facility] [address] [place] [address] documented in this encounter Visit Diagnoses Diagnosis Encounter for other general examination documented in this encounter Care Teams Senior Occupational Therapist Relationship Specialty Start Date End Date Unknown, Provider, PCP - General 11/14/19 documented as of this encounter
--- OUTSIDE RECORDS SUMMARY | 2024-01-08 02:01 | XMS_ITS | Encounter Summary ---
Author Organization [facility] [place] [address] Care Team Providers Care Acid Purification Equipment Operator Name Role Phone Marixa Rosales VERA Primary Care Provider [phone] Encounter Details Date Type Department Care Team (Late st Contact Info) Description 10/03/2020 5:00 PM EDT [place] [address] Nidia Ramos DPM [facility] [place] [address] Onychocryptosis; Pain in toe of left foot Social History Tobacco Use Types Packs/Day Years Used Date Smoking Tobacco: Never Smokeless Tobacco: Never Sex and Gender Information Value Date Recorded Sex Assigned at Not on file Gender Identity Not on file Sexual Orientation Not on file documented as of this encounter Progress Notes * Nidia Ramos DPM - 10/03/2020 5:00 PM EDT [facility] Note Name: Kaykay Majano Age:20 y.o. MR#: [id number] Date of Service: 10/03/2020 SUBJECTIVE: Kaykay Majano is a 20 y.o. female who returns to the clinic today with chief complaint of painful left great toe. Patient has history of recurrent ingrown nails and previously underwent chemical matrixectomy right hallux lateral margin with resolution of previous symptoms. Presents today with left great toe pain. Six months ago patient had infection at site and underwent partial nail avulsion/drainage which resolved infected. Today she reports worsening discomfort to affected site both borders. No other sites of involvement. No constitutional symptoms. No other pedal complaints. Allergies Allergen Reactions ??? Legumes Anaphylaxis Allergic [...] Never Smoker ??? Smokeless tobacco: Never Used Vaping Use ??? Vaping Use: Every day ??? Start date: 04/03/2019 Substance and Sexual Activity ??? Alcohol use: [...] Week: ??? Minutes of Exercise per Session: No family history on file. Current Outpatient [...] file prior to visit. ROS: MSK: + toe pain SKIN: +ingrown nails The remainder of 10 ROS were reviewed and negative. OBJECTIVE: GEN: alert, awake, NAD, afebrile DERM: Skin supple and intact with procedure site right hallux lateral border well healed and asymptomatic. Remaining borders bilateral hallux x3 symptomatic, left greater than right. Left hallux bilateral margins severely incurvated. No localized erythema, edema, discharge or purulence. Upon removal, granular healthy base. No evidence of infection or abscess. Temp gradient WNL. VASC: Pedal pulses palpable. Capillary refill brisk. NEURO: Epicritic sensation intact to light touch bilaterally. MSK: Pain on palpation at affected sites left hallux and mildly right hallux medial. No other sitesof palpable pain. Ambulatory. No weakness or wasting. ASSESSMENT: Chronic recurrent ingrown nail left hallux causing discomfort Hx of paronychia bilateral hallux Status post chemical matrixectomy right hallux lateral margin--well healed PLAN: Patient reevaluated. Discussed treatment options at length. At this time site of previous chemical matrixectomy right hallux lateral margin has healed well with no symptoms. Remaining margins bilateral hallux are symptomatic consistent with chronic onychocryptosis particularly left hallux. Patient opts for chemical matrixectomy partial nail avulsion and phenol application only of left hallux lateral margin today. Will consider other borders at later time if symptoms persist which I think is reasonable. Discussed remains at risk of ingrown nail infection and seek prior medical care if this occurs. Risk benefits and possible complications of procedure reviewed today. Written consent for procedureobtained. Following application of alcohol swab and ethyl chloride spray injected left hallux with 1 cc of 2% lidocaine plain lateral margin. Betadine scrub performed. Using sterile spatula left hallux lateral margin freed from skin folds and soft tissue attachments. Nail margin noted to be severely incurvated. Using sterile nail nippers lateral margin of left hallux removed to level of nail root. All spicules removed. No infection or abscess appreciated. Toe tourniquet applied. Phenol 89% applied with cotton tipped applicator as per textile worker instructions with 3 applications of 30 seconds each to affected site. Alcohol flush performed. Toe tourniquet removed. Immediate hyperemia noted of left hallux. Cleansed with saline and covered with bacitracin, gauze and coban. Post procedure instructions reviewed at length. Dressing to be left clean, dry and intact 24 hours and then begin applying Iodosorb and bandaid. Sample dispensed. Proper use reviewed. Avoid submersion. S/s of infection reviewed. If any worsening or concerns contact clinic. All questions answered. Patient verbalized understanding of all instructions. FOLLOW UP: 2-4 weeks or sooner if any concerns arise POST PROCEDURE INSTRUCTIONS 1. Keep dressing to toe clean, dry and covered, changing with Iodosorb and Bandaid once daily till fully healed, typically 1-2 weeks 2. Avoid submersion 3. Avoid high impact activities 1 week and then resume gradually as tolerated 4. Monitor for any worsening If you develop signs/symptoms of infection which may include the following: ??? Fever ??? Sweats ??? Chills ??? Nausea, Vomiting or Diarrhea ??? General malaise Around the wound site: ??? Increased pain ??? Swelling or edema ??? Redness ??? Warmth ??? Pus ??? Malodor Contact directly with any above symptoms Wednesday-Wednesday 8:00AM-4:30PM. If weekends/holidays/evenings, please report to the Emergency Department. Nidia Ramos DPM Import Specialist, [facility] documented in this encounter Plan of Treatment Not on file documented as of this encounter Visit Diagnoses Diagnosis Onychocryptosis Ingrowing nail Pain in toe of left foot Pain in limb documented in this encounter Care Teams Acid Purification Equipment Operator Relationship Specialty Start Date End Date Marixa Rosales APRN [address] [place] [address] PCP - General Family Medicine 03/22/20 documented as of this encounter
--- OUTSIDE RECORDS SUMMARY | 2024-01-08 02:01 | XMS_ITS | Encounter Summary ---
Author Organization [facility] Address [address] [place] [address] Care Team Providers Care House Director Name Role Phone Unknown, Provider Primary Care Provider Encounter Details Date Type Department Care Team (Late st Contact Info) Description 09/19/2022 Lab Requisition [facility] Pathology & Laboratory Medicine - [facility] [address] [place] [address] Outr Resulting Lab, Provider Social History Tobacco [...] Comments CHLAMYDIA/N. GONORRHOEAE AMPLIFIED NUCLEIC ACID Routine 09/18/2022 15:15 EDT documented in this encounter Results * CHLAMYDIA/N. GONORRHOEAE AMPLIFIED RNA (09/18/2022 15:15 EDT) Neisseria gonorrhoeae Result Negative Negative 09/20/2022 12:13 EDT [facility] Chlamydia trachomatis Result Negative Negative 09/20/2022 12:13 EDT [facility] Swab ENTIRE WALL OF CERVIX / Unknown 09/18/2022 15:15 EDT 09/19/2022 22:01 EDT Provider Outr Resulting Lab MICROBIOLOGY - GENERAL ORDERABLES [facility] [address] [place] [address] documented in this encounter Visit Diagnoses Not on filedocumented in this encounter Care Teams House Director Relationship Specialty Start Date End Date Unknown, Provider, PCP - General 11/14/19 documented as of this encounter
--- OUTSIDE RECORDS SUMMARY | 2024-01-08 02:01 | XMS_ITS | Encounter Summary ---
Author Organization [facility] Address [address] [place] [address] Care Team Providers Care Motorcycle Designer Name Role Phone Unknown, Provider Primary Care Provider Encounter Details Date Type Department Care Team (Late st Contact Info) Description 05/01/2020 Lab Requisition [facility] Pathology & Laboratory Medicine - [facility] [address] [place] [address] Brooklyn Adamson MD [address], [place] [id number] Contact with and (suspected) exposure to other viral communicable diseases Social History Tobacco Use Types Packs/Day Years [...] Procedure Name Priority Date/Time Associated Diagnosis Comments ZZCOVID-19 TEST [facility] PCR Today 04/30/2020 6:09 EST Contact with and (suspected) exposure to other viral communicable diseases COVID-19 TESTING Today 04/30/2020 6:09 EST Contact with and (suspected) exposure to other viral communicable diseases documented in this encounter Results * COVID-19 TEST [facility] PCR (04/30/2020 6:09 EST) Swab NASAL / Unknown 04/30/2020 6 :09 EST 05/01/2020 20:19 EST Brooklyn Adamson MD MICROBIOLOGY - GENERAL ORDERABLES [facility] [address] [place] [address] * COVID-19 TESTING (04/30/2020 6:09 EST) COVID-19 rt-PCR Result Negative Negative 05/02/2020 14:57 EST [facility] Comment: This test has not been FDA cleared or approved. This test has been authorized by FDA under an EUA for use by authorized laboratories. This test has been authorized only for detection of nucleic acid from 2019-nCoV, not for any other viruses or pathogens. This test is only authorized for the duration of the declaration that circumstances exist justifying the authorization of emergency use of in vitro diagnostic tests for detection and/or diagnosis of 2019-nCoV under section 564(b)(1) of Act, 21 U.S.C ?? 360bbb-3(b) (1), unless the authorization is terminated or revoked sooner. Negative results do not preclude 2019-nCoV infection and should not be used as the sole basis for treatment or other patient management decisions. Negative results must be combined with clinical observations, patient history, and epidemiological information. This test was developed and its performance characteristics determined by [facility]. It has not been cleared or approved by the US Food and Drug Administration. FDA does not require this test to go through premarket FDA review. This test is used for clinical purposes. It should not be regarded as investigational or for research. This laboratory is certified under the Clinical Laboratory Improvement Amendments (CLIA) as qualified to perform high complexity clinical laboratory testing. This test is based on the [facility] COVID-19 Emergency Use Authorization (EUA) assay, with minor modification as defined by the FDA Performed on the [employer] Monitoringo 7 Flex RT-PCR System. Performing Lab [facility] 05/02/2020 14:57 EST [facility] Swab NASAL / Unknown 04/30/2020 6 :09 EST 05/01/2020 20:19 EST Brooklyn Adamson MD MICROBIOLOGY - GENERAL ORDERABLES [facility] [address] [place] [address] documented in this encounter Visit Diagnoses Diagnosis Contact with and (suspected) exposure to other viral communicable diseases documented in this encounter Care Teams Motorcycle Designer Relationship Specialty Start Date End Date Unknown, Provider, PCP - General 11/14/19 documented as of this encounter
--- OUTSIDE RECORDS SUMMARY | 2024-01-08 02:01 | XMS_ITS | Encounter Summary ---
Author Organization [facility] [place] [address] Care Team Providers Care Blow Pit Operator Name Role Phone Marixa Rosales APRN Primary Care Provider [phone] Encounter Details Date Type Department Care Team (Late st Contact Info) Description 04/08/2020 Orders [place] [address] Nidia Ramos DPM [facility] [place] [address] Paronychia of great toe, left; Paronychia of great toe, right Social History Tobacco Use Types Packs/Day Years Used Date Smoking Tobacco: Never Smokeless Tobacco: Never Sex and Gender Information Value Date Recorded Sex Assigned at Not on file Gender Identity Not on file Sexual Orientation Not on file documented as of this encounter Plan of Treatment Not on file documented as of this encounter Visit Diagnoses Diagnosis Paronychia of great toe, left Onychia and paronychia of toe Paronychia of great toe, right Onychia and paronychia of toe documented in this encounter Care Teams Blow Pit Operator Relationship Specialty Start Date End Date Marixa Rosales APRN [address] [place] [address] PCP - General Family Medicine 03/22/20 documented as of this encounter
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
[2024-01-08] MEDS: Ketorolac 15 MG/ML VIAL IVP (02:56)
[2024-01-08] MEDS: Acetaminophen 500 MG TAB 1000 MG PO (02:56)
[2024-01-08 03:47] VITALS: BP 116/73; PULSE 80; RESP 18; TEMP 36.6; O2SAT 94
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
== END 2024-01-08 04:18 | disposition home or self-care (01) ==
PROVIDERS: Emergency Provider Student in an Organized Health Care Education/Training Program; PCP Nurse Practitioner Family
DX: S02.2XXA Fracture of nasal bones, initial encounter for closed fracture (principal); Y04.8XXA Assault by other bodily force, initial encounter
CPT/HCPCS: 81025; 96374; 99284; 70486; 99283; J1885

== ENCOUNTER 2024-02-02 17:01 | Emergency (ER) | payer MEDICAID, SELFPAY ==
[2024-02-02 17:14] VITALS: BP 135/79; PULSE 98; RESP 20; TEMP 36.9; O2SAT 96
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
--- OUTSIDE RECORDS SUMMARY | 2024-02-02 17:22 | XMS_ITS | Clinical Summary ---
Author Organization [facility] Address [facility] [place] [address] Care Team Providers Care Gold Beater Name Role Phone Bobby Marixa Vijay GAMEZ Primary Care Provider [phone] Allergies Active Allergy Reactions Criticality Noted Date [...] PAP Smear 2021 Covid-19 Vaccine (1 - 2023-25 season) 2023 Influenza (Flu) vaccine (1 o f 1 - Influenza standard series) 11/14/2023 Care Teams Gold Beater Relationship Specialty Start Date End Date Marixa Rosales APRN [address] [place], [place] [id number] PCP - General Family Medicine 03/22/20
--- OUTSIDE RECORDS SUMMARY | 2024-02-02 17:22 | XMS_ITS | Encounter Summary ---
Author Organization [facility] Address [address] [place] [address] Care Team Providers Care Inventory Auditor Name Role Phone Unknown, Provider Primary Care Provider Unava ilable Encounter Details Date Type Department Care Team (Late st Contact Info) Description 04/16/2021 Lab Requisition [facility] Pathology & Laboratory Medicine - [address] [address] Outr Resulting Lab, Provider Social History Tobacco Use Types Packs/Day Years Used Date Smoking Tobacco: Never Assessed Interpersonal Safety Answer Date Record ed Physically Hurt Never 12/07/2019 Verbally Threaten Not on file 12/07/2019 Comments Unknown Sex and Gender Information Value Date Recorded Sex Assigned at Not on file Legal Sex Female 7:50 EDT Gender Identity Not on file Sexual Orientation [...] gonorrhoeae Result Negative Negative 04/17/2021 13:48 EST [facility] Chlamydia trachomatis Result Negative Negative 04/17/2021 13:48 EST [facility] Swab ENTIRE WALL OF CERVIX / Unknown 04/15/2021 15:00 EST 04/16/2021 16:04 EST us Provider Outr Resulting Lab MICROBIOLOGY - GENER AL ORDERABLES Final Result [facility] [address] [place] [address] documented in this encounter Visit Diagnoses Not on filedocumented in this encounter Care Teams Inventory Auditor Relationship Specialty Start Date End Date Unknown, Provider, PCP - General 11/14/19 documented as of this encounter
--- OUTSIDE RECORDS SUMMARY | 2024-02-02 17:22 | XMS_ITS | Encounter Summary ---
Author Organization [facility] [place] [address] Care Team Providers Care Clerical Grader Name Role Phone Marixa Rosales VERA Primary Care Provider [phone] Encounter Details Date Type Department Care Team (Late st Contact Info) Description 10/03/2020 5:00 PM EDT Office [place] [address] Nidia Ramos DPM [facility] [place] [address] Onychocryptosis; Pain in toe of left foot [...] Note Name: Kaykay Majano Age:20 y.o. MR#: [id number] Date of Service: 10/03/2020 SUBJECTIVE: Kaykay Majano [...] applied with cotton tipped applicator as per asset protection detective instructions with 3 applications of 30 seconds [...] to the Emergency Department. Nidia Ramos DPM [employer], [facility] documented in this encounter Plan of Treatment Not on file documented as of this encounter Visit Diagnoses Diagnosis Onychocryptosis Ingrowing nail Pain in toe of left foot Pain in limb documented in this encounter Care Teams Clerical Grader Relationship Specialty Start Date End Date Marixa Rosales APRN [address] [place] [address] PCP - General Family Medicine 03/22/20 documented as of this encounter
--- OUTSIDE RECORDS SUMMARY | 2024-02-02 17:22 | XMS_ITS | Clinical Summary ---
Author Organization [facility] Address [address] [place] [address] Care Team Providers Care Tubing Machine Operator Name Role Phone Unknown, Provider Primary Care Provider Unava ilable Social History Tobacco Use Types Packs/Day Years [...] - 19+ 3-dose series) 05/16 COVID-19 Vaccine (2023- season) 2023 Insurance MEDICAID [facility] [place] Care Teams Tubing Machine Operator Relationship Specialty Start Date End Date Unknown, Provider, PCP - General 11/14/19
--- OUTSIDE RECORDS SUMMARY | 2024-02-02 17:22 | XMS_ITS | Encounter Summary ---
Author Organization [facility] Address [address] [place] [address] Care Team Providers Care Mining Manager Name Role Phone Unknown, Provider Primary Care Provider Unava ilable Encounter Details Date Type Department Care Team (Late st Contact Info) Description 05/20/2021 Lab Requisition [facility] Pathology & Laboratory Medicine - [facility] [address] [place], [place] [address] Outr Resulting Lab, Provider Social History Tobacco [...] gonorrhoeae Result Negative Negative 05/21/2021 14:36 EST [facility] Chlamydia trachomatis Result Negative Negative 05/21/2021 14:36 EST [facility] Papanicolaou smear specimen (specimen) CERVIX UTERI STRUCTURE / Unknown 05/20/2021 13:30 EST 05/21/2021 8:30 EST us Provider Outr Resulting Lab MICROBIOLOGY - GENER AL ORDERABLES Final Result [facility] [address] [place] [address] documented in this encounter Visit Diagnoses Not on filedocumented in this encounter Care Teams Mining Manager Relationship Specialty Start Date End Date Unknown, Provider, PCP - General 11/14/19 documented as of this encounter
--- OUTSIDE RECORDS SUMMARY | 2024-02-02 17:22 | XMS_ITS | Encounter Summary ---
Author Organization [facility] [place] [address] Care Team Providers Care Catia Designer Name Role Phone Marixa Rosales VERA Primary Care Provider [phone] Encounter Details Date Type Department Care Team (Late st Contact Info) Description 05/23/2020 2:00 PM EST [place] [address] Nidia Ramos DPM [facility] [place] [address] Onychocryptosis; Pain in toe of right foot [...] Note Name: Kaykay Majano Age:20 y.o. MR#: [id number] Date of Service: 05/23/2020 SUBJECTIVE: Kaykay Majano [...] seconds each of phenol 89% as per nurse practitioner home assessments's instructions. Alcohol flush performed. Toe tourniquet removed. [...] limb documented in this encounter Care Teams Catia Designer Relationship Specialty Start Date End Date Marixa Rosales APRN [address] [place] [address] PCP - General Family Medicine 03/22/20 documented as of this encounter
--- OUTSIDE RECORDS SUMMARY | 2024-02-02 17:22 | XMS_ITS | Encounter Summary ---
Author Organization [facility] Address [address] [place] [address] Care Team Providers Care Lute Packer Or Applier Name Role Phone Unknown, Provider Primary Care Provider Unava ilable Encounter Details Date Type Department Care Team (Late st Contact Info) Description 01/10/2020 Lab Requisition [facility] Pathology & Laboratory Medicine - [facility] [address] [place] [address] Outr Resulting Lab, Provider Social History Tobacco [...] gonorrhoeae Result Negative Negative 02/29/2020 15:03 EST [facility] Chlamydia trachomatis Result Negative Negative 02/29/2020 15:03 EST [facility] [id number] 01/09/2020 13:1 5 EDT 02/29/2020 7:08 EST us Provider Outr Resulting Lab MICROBIOLOGY - GENER AL ORDERABLES Final Result [facility] [address] [place] [address] documented in this encounter Visit Diagnoses Not on filedocumented in this encounter Care Teams Lute Packer Or Applier Relationship Specialty Start Date End Date Unknown, Provider, PCP - General 11/14/19 documented as of this encounter
--- OUTSIDE RECORDS SUMMARY | 2024-02-02 17:22 | XMS_ITS | Encounter Summary ---
Author Organization [facility] Address [facility] [place] [address] Care Team Providers Care Well Service Floorperson Name Role Phone Marixa Rosales VERA Primary Care Provider [phone] Encounter Details Date Type Department Care Team (Late st Contact Info) Description 05/30/2020 2:15 PM EDT TH Visit (TeleHealth) [place] [id number] Nidia Ramos DPM [facility] [place] [address] Onychocryptosis Social History Tobacco Use Types Packs/Day [...] Note Name: Kaykay Majano Age:20 y.o. MR#: [id number] Date of Service: 05/30/2020 SUBJECTIVE: Kaykay Majano [...] Gatherings with Friends and Family: ??? Attends Taoist Services: ??? Active Member of Clubs or [...] nail documented in this encounter Care Teams Well Service Floorperson Relationship Specialty Start Date End Date Marixa Rosales APRN [address] [place] [address] PCP - General Family Medicine 03/22/20 documented as of this encounter
--- OUTSIDE RECORDS SUMMARY | 2024-02-02 17:22 | XMS_ITS | Encounter Summary ---
Author Organization [facility] [address] Care Team Providers Care Cook Ship Name Role Phone Marixa Rosales APRN Primary Care Provider [phone] Encounter Details Date Type Department Care Team (Late st Contact Info) Description 04/30/2020 Tele[place] [address] [place] Reyes LPN Social History Tobacco Use [...] on filedocumented in this encounter Care Teams Cook Ship Relationship Specialty Start Date End Date Marixa Rosales APRN [address] [place] [address] PCP - General Family Medicine 03/22/20 documented as of this encounter
--- OUTSIDE RECORDS SUMMARY | 2024-02-02 17:22 | XMS_ITS | Encounter Summary ---
Author Organization [facility] [place] [address] Care Team Providers Care Group Managing Director Name Role Phone Marixa Rosales APRN Primary Care Provider [phone] Reason for Visit * Reason Comments Ingrown Toenail * Consultation (Routine) - Closed Specialty Diagnoses / Procedures Referred By Abdoulaye light Referred To Contact Podiatry Diagnoses Cellulitis of right toe Marixa Rosales APRN [address] [place] [address] [facility] [place] [address] Referral ID Status Reason Start Date Expiration Date V isits Requested Visits Authorized [id number] Closed Consult, [facility] PCP Updated and/or Approved 03/18/2020 03/18/2021 6 6 Encounter Details Date Type Department Care Team (Late st Contact Info) Description 04/03/2020 9:30 AM EST [place] [address] Nidia Ramos DPM [facility] [place] [address] Paronychia of great toe, left; Paronychia of [...] Note Name: Kaykay Majano Age:19 y.o. MR#: [id number] Date of Service: 04/03/2020 SUBJECTIVE: Kaykay Majano is a 19 y.o. female with history of chronic paronychia affecting bothgreat toes since May 2019 who presents to the clinic today for evaluation. Accompanied by mother.Patient referred from [facility] and has previously undergone wedge resection/total nail [...] file Gets together: Not on file Attends presybeterian service: Not on file Active member of [...] once infection resolves in future for more halfway relief. For now continue with dressing changes, [...] concerns or changes arise Nidia Ramos DPM [facility], [facility] documented in this encounter Plan of [...] MICROBIOLOGY - GENER AL ORDERAB[place] [address] * (ABNORMAL) Abscess/Wound Aspirate Culture (04/03/2020 11:37 [...] Sensitive Comment:Gentamicin i s not appropriate for Mohave-therapy. Staphylococcus aureus Oxacillin VITEK 2 METHOD Sensitive [...] Ramos DPM MICROBIOLOGY - [place] [address] * (ABNORMAL) Anaerobic Culture (04/03/2020 11:34 AM EST) Anaerobic Culture Few Prevotella species(A) [facility] Organism Prevotella species(A) [facility] Fluid specimen (specimen) TOE STRUCTURE / Unknown 04/03/2020 11:34 AM EST 04/03/2020 11:34 AM EST Comment:LEFT TOE HOLLUX Narrative Resulting Agency Comment Spec In Lab Nidia Ramos DPM MICROBIOLOGY - GENER AL ORDERABLES Performing Organization Address City/[facility]/ZIP Co de Phone Number [facility] [place] [address] * (ABNORMAL) Abscess/Wound Aspirate Culture (04/03/2020 11:34 [...] Sensitive Comment:Gentamicin i s not appropriate for Mohave-therapy. Staphylococcus aureus Oxacillin VITEK 2 METHOD Sensitive [...] - GENER AL ORDERABLES Performing Organization Address City/[facility]/ZIP Co de Phone Number [facility] [place] [address] documented in this encounter Visit Diagnoses Diagnosis Paronychia of great toe, left Onychia and paronychia of toe Paronychia of great toe, right Onychia and paronychia of toe Onychocryptosis Ingrowing nail documented in this encounter Care Teams Group Managing Director Relationship Specialty Start Date End Date Marixa Rosales APRN [address] [place] [address] PCP - General Family Medicine 03/22/20 documented as of this encounter
--- OUTSIDE RECORDS SUMMARY | 2024-02-02 17:22 | XMS_ITS | Encounter Summary ---
Author Organization [facility] Address [address] [place] [address] Care Team Providers Care Dozer Operator Name Role Phone Unknown, Provider Primary Care Provider Unava ilable Encounter Details Date Type Department Care Team (Late st Contact Info) Description 12/19/2019 Lab Requisition [facility] Pathology & Laboratory Medicine - [facility] [address] [place] [address] Brooklyn Adamson MD [address] [place], [place] [id number] Encounter for other general examination Social History [...] rt-PCR Result NEGATIVE Negative 12/21/2019 6:27 EDT [facility] Comment: 2019-novel Coronavirus (2019-nCoV) [...] in accordance with CLIA regulations, [employer] (CAP) guidelines (Jun 01, 2019), and FDA guidance (May 13, 2019). This test is only for use under the Food and Drug Administration's Emergency Use Authorization. Swab NASAL / Unknown 12/19/2019 1 4:00 EDT 12/19/2019 23:00 EDT us Brooklyn Adamson MD MICROBIOLOGY - GENERA L ORDERABLES Final Result [facility] [place], [place] * COVID-19 TESTING (12/19/2019 14:00 EDT) COVID-19 rt-PCR Result NEGATIVE Negative 12/21/2019 7:56 EDT [facility] Comment: 2019-novel Coronavirus (2019-nCoV) not detected [...] in accordance with CLIA regulations, [employer] (CAP) guidelines (Jun 01, 2019), and FDA guidance (May 13, 2019). This test is only for use under the Food and Drug Administration's Emergency Use Authorization. Performing Lab [facility] 12/21/2019 7:56 EDT [facility] Swab NASAL / Unknown 12/19/2019 1 4:00 EDT 12/19/2019 23:00 EDT us Brooklyn Adamson MD MICROBIOLOGY - GENERA L ORDERABLES Final Result [facility] [address] [place] [address] [facility] [place], [place] documented in this encounter Visit Diagnoses Diagnosis Encounter for other general examination documented in this encounter Care Teams Dozer Operator Relationship Specialty Start Date End Date Unknown, Provider, PCP - General 11/14/19 documented as of this encounter
--- OUTSIDE RECORDS SUMMARY | 2024-02-02 17:22 | XMS_ITS | Referral Summary ---
Author Organization [facility] Address [address] [place] [address] Care Team Providers Care Actuary Name Role Phone Unknown, Provider Primary Care [...] file Plan of Treatment Not on file Insurance MEDICAID [place] Care Teams Actuary Relationship Specialty Start Date End Date Unknown, Provider, PCP - General 11/14/19
--- OUTSIDE RECORDS SUMMARY | 2024-02-02 17:22 | XMS_ITS | Encounter Summary ---
Author Organization [facility] Address [address] [place] [address] Care Team Providers Care In Service Educator Name Role Phone Unknown, Provider Primary Care Provider Unava ilable Encounter Details Date Type Department Care Team (Late st Contact Info) Description 05/01/2020 Lab Requisition [facility] Pathology & Laboratory Medicine - [facility] [address] [place] [address] Brooklyn Adamson MD [address] [place], [place] [id number] Contact with and (suspected) exposure to other [...] 04/30/2020 6 :09 EST 05/01/2020 20:19 EST us Brooklyn Adamson MD MICROBIOLOGY - GENERA L ORDERABLES Final Result Performing Organization Address [facility]/ZIP Co de Phone Number [facility] [address] [place] [address] * COVID-19 TESTING (04/30/2020 6:09 EST) COVID-19 rt-PCR Result Negative Negative 05/02/2020 14:57 EST [facility] Comment: This test has not [...] developed and its performance characteristics determined by [facility]. It has not been cleared or approved [...] testing. This test is based on the [facility] COVID-19 Emergency Use Authorization (EUA) assay, with minor modification as defined by the FDA Performed on the [employer], Inco 7 Flex RT-PCR System. Performing Lab [facility] 05/02/2020 14:57 EST [facility] Swab NASAL / Unknown 04/30/2020 6 :09 EST 05/01/2020 20:19 EST Brooklyn Adamson MD MICROBIOLOGY - GENERA L ORDERABLES Final Result Performing Organization Address City/[facility]/ZIP Co de Phone Number [facility] [address] [place] [address] documented in this encounter Visit Diagnoses Diagnosis Contact with and (suspected) exposure to other viral communicable diseases documented in this encounter Care Teams In Service Educator Relationship Specialty Start Date End Date Unknown, Provider, PCP - General 11/14/19 documented as of this encounter
--- OUTSIDE RECORDS SUMMARY | 2024-02-02 17:22 | XMS_ITS | Encounter Summary ---
Author Organization [facility] Address [address] [place] [id number] Care Team Providers Care Ride Operator Name Role Phone Unknown, Provider Primary Care Provider Unava ilable Encounter Details Date Type Department Care Team (Late st Contact Info) Description 09/19/2022 Lab Requisition [facility] Pathology & Laboratory Medicine - [address] [address] Outr Resulting Lab, Provider Social History Tobacco [...] gonorrhoeae Result Negative Negative 09/20/2022 12:13 EDT [facility] Chlamydia trachomatis Result Negative Negative 09/20/2022 12:13 EDT [facility] Swab ENTIRE WALL OF CERVIX / Unknown 09/18/2022 15:15 EDT 09/19/2022 22:01 EDT us Provider Outr Resulting Lab MICROBIOLOGY - GENER AL ORDERABLES Final Result [facility] [address] [place] [address] documented in this encounter Visit Diagnoses Not on filedocumented in this encounter Care Teams Ride Operator Relationship Specialty Start Date End Date Unknown, Provider, PCP - General 11/14/19 documented as of this encounter
--- OUTSIDE RECORDS SUMMARY | 2024-02-02 17:22 | XMS_ITS | Encounter Summary ---
Author Organization [facility] [place] [place] [address] Care Team Providers Care Perfume Maker Name Role Phone Marixa Rosales APRN Primary Care Provider [phone] Encounter Details Date Type Department Care Team (Late st Contact Info) Description 04/08/2020 Orders [place] [address] Nidia Ramos DPM [facility] [address] Paronychia of great toe, left; Paronychia of [...] toe documented in this encounter Care Teams Perfume Maker Relationship Specialty Start Date End Date Marixa Rosales APRN [address] [place] [address] PCP - General Family Medicine 03/22/20 documented as of this encounter
--- OUTSIDE RECORDS SUMMARY | 2024-02-02 17:22 | XMS_ITS | Encounter Summary ---
Author Organization [facility] Address [address] [place] [address] Care Team Providers Care Carpenter Helper Maintenance Name Role Phone Unknown, Provider Primary Care Provider Unava ilable Encounter Details Date Type Department Care Team (Late st Contact Info) Description 05/21/2021 Lab Requisition [facility] Pathology & Laboratory Medicine - [facility] [address] [place] [address] Hoa Roche, RADIATION ONCOLOGY THERAPIST [address] [place] [id number] Encounter for other general examination Social History [...] Imaging System with Manual Evaluation 05/26/2021 13:36 [facility] Specimen Adequacy Satisfactory for Evaluation - transformation zone component absent 05/26/2021 13:36 [facility] General Categorization Negative for intraepithelial lesion or malignancy 05/26/2021 13:36 T [facility] Descriptive Diagnosis 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 05/26/2021 13:36 EDT [facility] Attestation . 05/26/2021 13:36 EDT [facility] at [address]6 Clinical History See below 05/27/19 13:36 EDT [facility] Performing Lab [facility] 05/26/2021 13:36 EDT [facility] Scanned Images 05/26/2021 13:36 T [facility] Papanicolaou smear specimen (specimen) CERVIX UTERI STRUCTURE / Unknown 05/20/2021 13:30 EST 05/21/2021 15:20 EST us Hoa Roche RADIATION ONCOLOGY THERAPIST PATHOLOGY ORDERABLES Ekta l Result [facility] [address] [place] [address] documented in this encounter Visit Diagnoses Diagnosis Encounter for other general examination documented in this encounter Care Teams Carpenter Helper Maintenance Relationship Specialty Start Date End Date Unknown, Provider, PCP - General 11/14/19 documented as of this encounter
--- OUTSIDE RECORDS SUMMARY | 2024-02-02 17:22 | XMS_ITS | Encounter Summary ---
Author Organization [facility] [place] [address] Care Team Providers Care Telesales Representative Name Role Phone Marixa Rosales APRN Primary Care Provider [phone] Encounter Details Date Type Department Care Team (Late st Contact Info) Description 04/30/2020 [place] [address] Nidia Ramos DPM [facility] [place] [address] Social History Tobacco Use Types Packs/Day Years [...] on filedocumented in this encounter Care Teams Telesales Representative Relationship Specialty Start Date End Date Marixa Rosales APRN [address] [place] [address] PCP - General Family Medicine 03/22/20 documented as of this encounter
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
[2024-02-02] MEDS: Acetaminophen 500 MG TAB 1000 MG PO (17:47)
[2024-02-02] MEDS: Ibuprofen 600 MG TAB PO (17:48)
== END 2024-02-02 18:24 | disposition home or self-care (01) ==
PROVIDERS: Emergency Provider Emergency Medicine; PCP Nurse Practitioner Family
DX: S60.221A Contusion of right hand, initial encounter; S60.211A Contusion of right wrist, initial encounter; W23.0XXA Caught, crushed, jammed, or pinched between moving objects, initial encounter
CPT/HCPCS: 99283; 73110; 73130

== ENCOUNTER 2024-10-31 02:38 | Outpatient (CLI) | payer MEDICAID, SELFPAY | END 2024-10-31 02:39 | disposition home or self-care (01) | LOC: LBO 02:38 | PROVIDERS: PCP Nurse Practitioner Family; Visit Provider Obstetrics & Gynecology | DX: Z34.91 Encounter for supervision of normal pregnancy, unspecified, first trimester (principal) | CPT/HCPCS: 36415; 86850; 86900; 86901 ==

== ENCOUNTER 2024-11-12 16:26 | Emergency (ER) | payer MEDICAID, SELFPAY ==
[2024-11-12 16:32] VITALS: BP 122/88; PULSE 99; RESP 18; TEMP 36.8; O2SAT 99
[2024-11-12 16:47] VITALS: BP 122/88; PULSE 99; RESP 18; TEMP 36.8; O2SAT 99
--- NOTE | 2024-11-12 17:02 | W.ED.GENAD ---
Discharge Plan Disposition Patient Disposition: Home Condition: Stable Discharge Details Clinical Impression: Dental infection Primary Care Provider: Marixa Rosales ED Provider: Jase Kim Home Meds and New Rx's Prescriptions: New amoxicillin-pot clavulanate 875-125 mg tablet 1 tab PO BID 10 Days Qty: 20 0RF No Action venlafaxine 150 mg capsule,extended release 24hr 150 mg PO DAILY Classic 28 mg iron- 800 mcg tablet 1 tab PO DAILY ferrous sulfate 325 mg (65 mg iron) tablet 325 mg PO DAILY acetaminophen [Tylenol Extra Strength] 500 mg Tablet 500 mg PO PRN PRN Discharge Instructions Instructions: Amoxicillin and Clavulanate, Dental Pain ED Additional Instructions: You were seen in the emergency department for your left cheek swelling with some mild redness, you do have a dental cavity, I am treating you for dental infection, if you do not significantly improve in the next 4 days you may need to be reevaluated for other causative agents, this could be your TMJ, please apply hot compresses to the area of pain as well as take regular dose of Tylenol, perform warm salt water gargles 3 times per day. Referrals: Marixa Rosales [Primary Care Provider, Medicine] Discharge Data Discharge Date/Time-TO BE ENTERED AT DEPARTURE: 11/12/24 17:32 HPI General Date/Time Provider Initiated Documentation: 11/12/24 17:01. HPI Narrative: 24 year-old female presents to ED today by POV/ambulating with a chief complaint of L sided facial/cheek pain with onset noted over the past day or two. Quality described as sharp pain possibly her TMJ, but has known cavities as well, no radiation to trismus, vocal changes, drooling, fever, sore throat, cough, inability to swallow, eye pain with movement, facial swelling, endorses mild pink hue to part of L cheek. Severity is described as moderate. Palliating factors include nothing specific attempted. Provoking factors include nothing specific. Events leading up to the incident/Associated Symptoms: Patient is 10 weeks gestation. Patient not anticoagulated. Related Data Home Medications ?Medication ?Instructions ?Recorded ?Confirmed acetaminophen 500 mg tablet 500 mg PO PRN PRN 11/16/18 11/12/24 (Tylenol Extra Strength) ferrous sulfate 325 mg (65 mg 325 mg PO DAILY 12/01/23 11/12/24 iron) tablet vits no.126-ferrous fum 1 tab PO DAILY 10/02/24 11/12/24 28 mg iron-folic acid 800 mcg tablet (Classic ) venlafaxine 150 mg 150 mg PO DAILY 10/02/24 11/12/24 capsule,extended release 24 hr amoxicillin 875 mg-potassium 1 tab PO BID 10 days #20 tabs 11/12/24 clavulanate 125 mg tablet Previous Rx's ?Medication ?Instructions ?Recorded amoxicillin 875 mg-potassium 1 tab PO BID 10 days #20 tabs 11/12/24 clavulanate 125 mg tablet Allergies Allergy/AdvReac Type Severity Reaction Status Date / Time peanut Allergy Severe Anaphylaxis Verified 11/12/24 16:36 General Stated Complaint: FacialProb STANTON: 3 Review of Systems All systems reviewed & are unremarkable except as noted in HPI and below Exam Narrative Exam Narrative: GENERAL APPEARANCE: Well-nourished, non-toxic, awake and alert, atraumatic, no acute distress. SKIN: Warm, pink, dry, intact, without rashes/lesions/ulcerations. HEAD: Normocephalic, atraumatic, normal hair distribution for gender/age. EYES: Normal conjunctiva, no exudates on lids/lashes. ENT: Nares patent, no circumoral cyanosis, no facial swelling, L upper 2nd molar has dental caries, pink hue to part of cheek, no crepitus at L TMJ, no trismus, no pain with EOM movement, no facial swelling/bernal erytema, benign posterior oropharynx NECK: Supple, trachea midline, painless cervical ROM. LUNGS/CHEST: Non-labored respirations, normal A/P diameter, symmetrical expansion, no chest wall deformity HEART (CV/PV): No peripheral edema, no JVD. ABDOMEN: Soft, non-distended, no guarding. MSK: Normal ROM, no swelling/deformity to bilateral UEs or LEs, moving all extremities without weakness, no cyanosis, spine midline without tenderness, normal curvature. NEURO: Mental Status AAOx4 - alert to person, place, time, events No facial droop, no forehead involvement. Motor: No focal weakness - strength 5/5 in bilateral UEs and LEs, proximal and distal, symmetric. Sensory: sensation intact to light touch globally. Gait normal: patient ambulated without ataxia into ED room. PSYCH: euthymic, cooperative, pleasant, appropriate speech Course Vital Signs Vital signs: Vital Signs Temperature 36.8 C 11/12/24 16:32 Pulse 99 H 11/12/24 16:32 Respiratory Rate 18 11/12/24 16:32 Blood Pressure 122/88 11/12/24 16:32 Pulse Oximetry 99 11/12/24 16:32 Temperature 36.8 C 11/12/24 16:47 Pulse 99 H 11/12/24 16:47 Respiratory Rate 18 11/12/24 16:47 Blood Pressure 122/88 11/12/24 16:47 Pulse Oximetry 99 11/12/24 16:47 Oxygen Delivery Method Room Air 11/12/24 16:47 Oxygen Flow Rate 0 11/12/24 16:47 Pain Level 8 11/12/24 16:47 Medical Decision Making This dictation utilizes [id number] dictation software and may contain unedited grammatical errors. 24 year-old female presents to ED today by POV/ambulating with a chief complaint of L sided facial/cheek pain with onset noted over the past day or two. Quality described as sharp pain possibly her TMJ, but has known cavities as well, no radiation to trismus, vocal changes, drooling, fever, sore throat, cough, inability to swallow, eye pain with movement, facial swelling, endorses mild pink hue to part of L cheek. Severity is described as moderate. Palliating factors include nothing specific attempted. Provoking factors include nothing specific. Events leading up to the incident/Associated Symptoms: Patient is 10 weeks gestation. Patients' medical history: TMJ. Family and social history: noncontributory. Pertinent exam findings / vital signs include L upper 2nd molar has dental caries, pink hue to part of cheek, no crepitus at L TMJ, no trismus, no pain with EOM movement, no facial swelling/bernal erytema, benign posterior oropharynx. Differential / pathologies of concern include dental infection, sinusitis, TMJ syndrome. Diagnostic studies of: -None. Interventions of: -Rx for Augmentin, empiric dental infection coverage. ED Course/Assessment/Plan: 74-year-old female presents with some left cheek/jaw tenderness, has dental caries possibly early dental infection will cover for sinusitis as well with Augmentin, question whether this is an exacerbation of her TMJ syndrome she has no trismus and no crepitus over the TMJ joint, strict return criteria for any trismus, excessive drooling, vocal changes, fever, worsening despite treatment. Findings not consistent with EDGE GLUER, orbital cellulitis, trismus, lugwig's angina. Disposition of Dental Infection. Patient verbalized understanding of the plan and return to ED criteria and engaged in shared decision making. Medical Records Medical records reviewed: Yes I reviewed the patient's medical records. PFSH All Active Problems (Updated 11/12/24 @ 17:19 by ANDIE Sánchez) Dental infection (Acute) Early stage of (Acute) Medical History (Updated 11/12/24 @ 17:19 by ANDIE Sánchez) Conductive hearing loss in left ear Pyelonephritis Back pain, thoracic Kidney stones Easy bruising Palpitation Anxiety Near syncope Hand pain Anemia Fatigue TMJ dysfunction Low back pain Migraine headache with aura Obesity Surgical History H/O hand surgery H/O tooth extraction Family History Maternal Grandmother Diabetes Social History Smoking/Tobacco Use Status: Never Smoking risk assessment performed?: Yes Alcohol Intake: never Drug use: Never Substance use type: does not use and other current occupation: [employer] Duration: 60-90 minutes/day Seatbelt use: sometimes Do you feel safe at home: Yes Do you feel safe in your relationship?: Yes Female Reproductive History Menstrual Age of Menarche: 11 control method: none and condoms History History 1 Para Hx # Term Pregnancies Multiple births Hx # Pregnancies Ectopic pregnancies AB induced Hx Number of Living Children AB spontaneous
[2024-11-12 17:23] VITALS: BP 94/65; PULSE 71; RESP 18; O2SAT 97
[2024-11-12] MEDS: Amoxicillin 875/Clav. 125 TAB PO (17:27)
== END 2024-11-12 17:32 | disposition home or self-care (01) ==
PROVIDERS: Emergency Provider Physician Assistant; PCP Nurse Practitioner Family
DX: H57.12 Ocular pain, left eye (principal); R68.84 Jaw pain; K04.7 Periapical abscess without sinus
CPT/HCPCS: 99283 ×2

== ENCOUNTER 2024-11-22 04:24 | Outpatient (CLI) | payer MEDICAID, SELFPAY ==
[2024-11-22 12:12] LABS: Abs Immature Grans 0.02 10^3/uL (0.0-0.06); HCT 33.4 % (36.0-46.0); HGB 11.5 g/dL (11.2-15.7); Immature Grans % 0.3 %; MCH 29.8 pg (27.0-33.0); MCHC 34.4 % (32.0-36.0); MCV 87 fL (80-95); MPV 11.1 fL (8.0-11.0); Platelet Count 239 10^3/uL (130-400); RBC 3.86 10^6/uL (3.93-5.22); RDW 12.6 % (11.7-14.6); RDW-SD 39.3 fL; WBC 7.59 10^3/uL (4.4-10.8)
[2024-11-22 12:26] LABS: Hemoglobin A1C 5.2 % (<5.7)
[2024-11-23 10:11] LABS: HIV-1/2 Ag & Ab Screen Negative (Negative)
[2024-11-23 10:30] LABS: Hepatitis C Ab w Rflx HCV PCR Negative (Negative)
[2024-11-23 11:05] LABS: Rubella IgG Ab (UVM) Negative (See Note)
[2024-11-24 13:27] LABS: Syphilis IgG w/Reflex Nonreactive (Nonreactive)
== END 2024-11-22 04:25 | disposition home or self-care (01) ==
LOC: LBO 04:24
PROVIDERS: PCP Nurse Practitioner Family; Visit Provider Advanced Practice Midwife
DX: Z34.91 Encounter for supervision of normal pregnancy, unspecified, first trimester (principal); Z34.01 Encounter for supervision of normal first pregnancy, first trimester
CPT/HCPCS: 36415; 81220; 81222; 86787; 86803; 87340; 87389; 83036; 85025; 86762; 86780

== ENCOUNTER 2024-11-22 10:44 | Outpatient (REF) | payer MEDICAID, SELFPAY ==
[2024-11-22 12:09] LABS: Cannabinoids THC Negative (Negative); METHADONE URINE SCREEN Negative (Negative)
[2024-11-23 11:18] LABS: Chlamydia Result Negative (Negative); GC Result Negative (Negative)
[2024-11-23 11:37] LABS: Fentanyl Scr w/Rfx Confirm Negative ng/mL (<1)
== END 2024-11-22 10:45 | disposition home or self-care (01) ==
LOC: LBN 10:44
PROVIDERS: PCP Nurse Practitioner Family; Visit Provider Advanced Practice Midwife
DX: Z34.91 Encounter for supervision of normal pregnancy, unspecified, first trimester (principal)
CPT/HCPCS: 80307; 80348; 87491; 87591; 87086

== ENCOUNTER 2025-01-22 14:30 | Outpatient (REF) | payer MEDICAID, SELFPAY | END 2025-01-22 14:31 | disposition home or self-care (01) | LOC: LBN 14:30 | PROVIDERS: PCP Nurse Practitioner Family; Visit Provider Advanced Practice Midwife | DX: N89.8 Other specified noninflammatory disorders of vagina (principal) | CPT/HCPCS: 87480; 87510; 87660 ==

== ENCOUNTER → 2025-01-29 01:29 | Outpatient (CLI) | payer MEDICAID, SELFPAY ==
--- NOTE | 2025-01-29 07:30 | DI.US_ITS ---
Exam(s) US OB 2-3 TRIMESTER EXAM: US OB 2-3 TRIMESTER CLINICAL HISTORY: anatomy,z34.91. TECHNIQUE: Transabdominal obstetrical ultrasound performed. COMPARISON: US POCUS EXAM from 10/09/2024 US POCUS EXAM from 10/30/2024 FINDINGS: Number of fetuses: 1 position: CEPHALIC Placental location: POSTERIOR No evidence of previa. BIOMETRIC DATA: BPD: 5.16cm mm, 21weeks 5days weeks HC: 19.63cm mm, 21weeks 6days weeks AC: 16.39cm mm, 21weeks 3days weeks FL: 3.66cm mm, 21weeks 4days weeks Cisterna magna: 3.6mm mm Cerebellum: 1.91cm cm Lateral ventricle: 5 mm EFW: 433.48g grams, 59.8% % Composite Age: 21weeks 5days weeks CHEL: 06/06/2025 Heart Rate: 149bpm BPM Amniotic fluid: Amount of fluid is visually within normal limits. ANATOMICAL SURVEY: Four-chambered heart: Unremarkable. LVOT: Unremarkable. RVOT: Unremarkable. Left-sided stomach: Unremarkable. urinary bladder: Unremarkable. Bilateral kidneys: Unremarkable. Three-vessel cord: Unremarkable. Cord insertion: Unremarkable. Posterior fossa:Unremarkable. ventricles: Unremarkable. nose: Unremarkable. lips: Unremarkable. palate: Unremarkable. spine: Unremarkable. Two arms and two legs: Unremarkable. IMPRESSION: 1. Single live intrauterine gestation with composite age 21 weeks 5 days 2. Normal anatomic survey. DATA REPOSITORY:
== END ==
LOC: DI 01:29
PROVIDERS: PCP Nurse Practitioner Family; Visit Provider Advanced Practice Midwife
DX: Z34.91 Encounter for supervision of normal pregnancy, unspecified, first trimester (principal)
CPT/HCPCS: 76805

== ENCOUNTER 2025-01-29 13:56 | Outpatient (REF) | payer MEDICAID, SELFPAY | END 2025-01-29 13:57 | disposition home or self-care (01) | LOC: LBN 13:56 | PROVIDERS: PCP Nurse Practitioner Family; Visit Provider Advanced Practice Midwife | DX: Z87.440 Personal history of urinary (tract) infections (principal) | CPT/HCPCS: 87086 ==

== ENCOUNTER 2025-03-09 13:13 | Outpatient (CLI) | payer MEDICAID, SELFPAY ==
[2025-03-09 14:01] VITALS: BP 131/64; PULSE 76; TEMP 36.8
[2025-03-09 14:22] VITALS: BP 131/64; PULSE 76; TEMP 36.8
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
[2025-03-10 04:48] VITALS: BP 131/64; PULSE 76; TEMP 36.8
[2025-03-12 11:15] LABS: Chlamydia Result Negative (Negative); GC Result Negative (Negative)
== END 2025-03-09 15:25 ==
LOC: BCD 13:17 → OBS 13:43
PROVIDERS: PCP Nurse Practitioner Family; Visit Provider Advanced Practice Midwife
DX: R10.9 Unspecified abdominal pain (principal); O99.891 Other specified diseases and conditions complicating pregnancy; Z3A.26 26 weeks gestation of pregnancy; R31.9 Hematuria, unspecified
CPT/HCPCS: 87491; 87591; 59025; 87086; 87480; 87510; 87660